=== PATIENT | male | born 1995 | race Caucasian/White ===

== ENCOUNTER 2018-07-08 11:13 | Inpatient (IN) ==
[2018-07-08] MEDS ORDERED: VECURONIUM BROMIDE 10 MG VIAL ONE (15:25)
[2018-07-08] MEDS ORDERED: ICU PROTOCOL FOR HYPERGLYCEMIA PRN (15:34)
[2018-07-08] MEDS ORDERED: IPRATROPIUM BROMIDE NEB SOLN 0.02% 2.5 ML VIAL INH PRN (15:34)
[2018-07-08] MEDS ORDERED: LEVALBUTEROL HCL 0.63 MG/3 ML NEB INH PRN (15:34)
[2018-07-08] MEDS ORDERED: NITROGLYCERIN/D5W 100 MCG/ML BTL ONE (15:53)
[2018-07-08] MEDS ORDERED: PROPOFOL IV EMULSION 10 MG/ML 100 ML VIAL IV ONE (15:56)
--- NOTE | 2018-07-08 15:57 | History & Physical Report ---
Date of Service July 08, 2018 Assessment & Plan (1) Cardiac arrest: I suspect that the patient had an acute hypoxic arrest which was then followed by a cardiac arrest. He received at least 15 minutes of CPR at the outside hospital. He had successful episcopal of spontaneous circulation a fter numerous doses of epinephrine, bicarbonate, fluids, and Narcan/flumazenil. There is low suspicion, despite the markedly elevated troponin, that the initial primary event was an acute coronary syndrome. I do not have the formal echocardiogram report however speaking with the elevator examiner and adjuster the LV wall motion was normal. Talking to his parents and girlfriend it seems as if the patient had some form of illness for 2-3 days prior to his cardiac arrest this morning. It is quite difficult to know how long the patient was hypoxic at home as his girlfriend found him cyanotic and unresponsive in the bed at 9am this morning. By history he has severe sleep apnea and thus he could have been hypoxic for a much longer period of time than estimated. The patient has evidence of bilateral pneumonia on CAT scan, was febrile upon presentation, and had a significant leukocytosis; thus an infectious process - in particular pneumonia - may have been the inciting pulmonary event which led to his initial hypoxia. There was some concern at the outside hospital that the patient suffered his arrest due to some form of overdose however his tox screen was negative except for marijuana. Additionally he received several doses of Narcan without any effect and also received flumazenil without any effect. At this time the patient is critically ill on the ventilator and will undergo hypothermia protocol as managed by Dr. Kohli. Appreciate Dr. Kholi's expertise as well as Dr. Crouch's cardiology consultation. We will defer management of the patient's multiorgan failure to critical care and cardiology. It is quite concerning that the patient's initial CT of the head shows possible loss of porter-white differentiation as well as multiple infarcts. Consider formal neurology consultation. Once the patient's hypothermia protocol resolves and he is rewarmed will need to reassess his neurological status. Present on Admission?: Yes (2) Acute respiratory failure with hypoxia and hypercarbia: Secondary to cardiac arrest. He has evidence of RV dysfunction on echo as well as bilateral pneumonia on CAT scan. It is possible that the pneumonia was there for several days as he was sick for several days according to his family. The other possibility is that he had an aspiration event in the midst of his arrest. Additionally, he has a very strong family history of DVT/PE and perhaps he had an acute VTE which could have caused or at least contributed to his arrest. He is being placed on antibiotics for pneumonia and also heparin empirically in the event that he had PEs. At some point he will need definitive imaging of the legs and/or chest to rule out VTE. Defer antibiotic selection, vent management, and hemodynamic management to critical care team. The patient's polycythemia would suggest that he has chronic hypoxia likely from undiagnosed and untreated sleep apnea which is likely severe. Lastly, there could be an element of pulmonary edema in light of the copious fluids he received at the outside hospital and his RV failure. Defer any diuretic to critical care and cardiology. Present on Admission?: Yes (3) NSTEMI (non-ST elevated myocardial infarction): It would be unusual although not impossible for 23-year-old to have an acute coronary syndrome. His presenting troponin was 8 at the outside hospital. It has already climbed to over 100. It this was indeed an acute coronary syndrome and in light of the markedly elevated troponin there likely would have been significant wall motion abnormalities on echo. By verbal report from the elevator examiner and adjuster this was not identified. Possibilities for the elevated troponin include demand ischemia although that would be very unusual for how high the troponin is, RV infarction from massive PE, some form of myocarditis, or perhaps elevation in the setting of CPR/chest compressions. Will await additional recommendations from cardiology whether patient should have cardiac catheterization at some point. We will also await formal echocardiogram report. The patient is on heparin infusion in the event he had massive PE or some form of acute coronary syndrome. Present on Admission?: Yes (4) Sepsis: The patient had fever and marked leukocytosis at time of admission. There is evidence of pneumonia on CT scan. Blood and urine cultures were sent at the outside hospital. Would recommend checking flu PCR swab as he had flu exposure at his workplace recently. Treat with Tamiflu if flu swab is positive. Defer antibiotic selection to critical care team. Will need to call outside hospital tomorrow for update on cultures. (5) Acute kidney failure: This is likely due to ATN in the setting of his cardiac arrest. Continue IV fluids and supportive care measures with serial basic metabolic panels. (6) Bilateral pneumonia: This is either community-acquired pneumonia or due to aspiration event. Defer antibiotic selection to critical care team. Need to call outside hospital for blood culture results in the morning. Continue ventilator support. (7) Tobacco use: (8) Polycythemia: This would argue that the patient has chronic hypoxia likely from severe untreated and undiagnosed sleep apnea. Present on Admission?: Yes (9) Shock liver: Transaminases are elevated consistent with shock liver in the setting of his cardiac arrest. He should have serial LFTs as well as INR to to check for development of coagulopathy. Present on Admission?: Yes (10) Morbid obesity with BMI of 45.0-49.9, adult: BMI 47.5 (11) Hyperkalemia: Secondary to acute kidney failure/ATN He may need a dose of Kayexalate and/or diuretic if potassium continues to rise. Serial basic metabolic panels. (12) Elevated lipase: Likely reactive and/or due to shock/cardiac arrest. Doubt acute pancreatitis. (13) UTI (urinary tract infection): possible. u/a at outside hospital with LE, bacteria, wbcs. antibiotics for pneumonia will cover urinary tract. contact outside hospital tomorrow for urine cx results. (14) DVT prophylaxis: The patient will be on heparin infusion. Total critical care time was approximately 60 minutes. Patient's family including his girlfriend were updated multiple times throughout the afternoon and evening. History of Present Illness Chief Complaint: s/p respiratory and cardiac arrest Primary Care Provider: NO PCP 23yo male with history of possible polysubstance abuse by history and morbid obesity who presented to [facility] via EMS with asystolic cardiac arrest. Per records and via verbal communication with the sending physician at [facility] the patient's girlfriend found him unresponsive and not breathing at home. EMS was summoned, and according to documentation, they found him WITH a pulse at his home. However, by the time of hospital arrival at [facility], he was in asystolic arrest. CPR was initiated at 924am according to records. Narcan and epinephrine were given followed by NaBicarbonate. At 0937am narcan was given again, and the monitor showed PEA. He was also given flumazanil to cover for the possibility of benzodiazepine overdose. Additional fluids and epinephrine were given for ongoing PEA on the monitor. At 942am a pulse was finally obtained and CPR was stopped. It appears he was intubated about 0948am. He received, in total, 4 liters of NS and 2 grams of rocephin IV due to WBC count of 40,000 on cbc. Initial EKG - inferior ST depressions; repeat EKG with improved ST changes inferiorly Labs at [facility]: WBC 41,000 Hb 18 Platelets 322 Creatinine 3 AG 20 AST 256 ALT 210 Troponin 8 Lipase 1439 CRP 0 initial pH 7.04, pCO3 63 u/a with LE, mod bacteria, 3+ blood, 2+ protein tox screen + THC lactic acid 6 After the patient's family arrived at [facility] additional history was obtained. Additional history was given by his mother, father, and his girlfriend with whom he lives. Patient's girlfriend stated that for at least 2 days if not 3 days he was complaining of feeling quite tired and simply not feeling well. Girlfriend states that the patient told her that several people at his workplace were sick with the flu. There was no known fever or chills over the last few days. His girlfriend and his parents had not noticed any cough or congestion. The patient was last seen awake and alert at approximately 11:30 PM last evening. His parents mention that when they saw him sometime yesterday he looked pale and simply unwell. The mother mentioned a remote possibility of him taking 1 of her [place] yesterday but she could not verify this. Lastly the girlfriend states that when she went into check on him at approximately 9 AM today he found him cyanotic in the lips and completely unresponsive to his name being called. She does think that he was still breathing when she first discovered him unresponsive. His breathing though was irregular. Patient's parents and his girlfriend also state that he snores each evening, it is very loud, and has been quite severe for some time. He has never had a sleep study. Lastly, the only other complaint that the patient has had of late is chronic right knee pain. The knee had not been swollen or red according to his girlfri end. Allergies Allergy/AdvReac Type Severity Reaction Status Date / Time Unable to Assess Allergy Verified 07/08/18 16:41 Past Med/Surg History Medical History Anxiety Chronic steroid use Depression Family history of reaction to anesthesia History of abscess of skin and subcutaneous tissue 2015 -this required multiple incision and drainage procedures at [facility]; location - groin Marijuana use Morbid obesity with BMI of 45.0-49.9, adult Snoring Tobacco use Surgical History History of arthroscopy History of incision and drainage Groin abscess, 2016 History of lumbar surgery Family History Mother History of MTHFR mutation Pulmonary embolism Deep vein thrombosis Father Hypertension Other Lupus anticoagulant disorder Social History Preferred Language: Syriac Communication Ability: Unable Beliefs That Will Affect Care: None marital status: Single Current Living Situation: Significant Other Current Living Situation Comment: Lives in [place] with significant other current occupational status: employed current occupation: Works as a camp specialist at a [employer] Other Information That Helps Us Care for You: No Feels Safe at Home: Yes Safety Concerns: Feels Safe At This Time Smoking Status: Current some day smoker Hx Alcohol Use: Yes Hx Substance Use: Yes Review of Systems Unobtainable due to endotracheal tube and Unobtainable due to reduced consciousness Physical Exam Vital Signs (Past 24 Hours): General: Intubated, paralyzed, sedated; morbidly obese Skin: Numerous tattoos, no signs of trauma, hyperpigmentation of the groin, erythema of the right lower abdominal wall but not warm or typical of cellulitis, ecchymoses of the plantar aspect of the right foot Eyes: Pupils are 2-3 mm bilateral; they were not reactive HEENT: ET tube and enteric tube are present; there are [id number] materials in the enteric tube Neck: No obvious masses or lymphadenopathy; due to body habitus unable to assess for JVD Heart: Regular rate rhythm S1-S2 no murmurs rubs or gallop Lungs: Decreased breath sounds both bases; the anterior chest is clear to auscultation bilaterally; no wheezes or rales Abdomen: Soft, obese, no hepatosplenomegaly, no masses, nondistended Extremities: Cool to touch, pulses 1+ bilaterally, no edema Neuro: Due to paralytics he is areflexic; no spontaneous movement seen presumably due to paralytics; no facial droop Vascular: There is a right sided subclavian central line in place; there is a right femoral central line in place; pulses of both feet are 1+ bilaterally; there is some mottling of the lower extremities Psych: Patient is intubated and sedated Results & Data Laboratory Results Laboratory Results - last 24 hr 07/08/18 07/08/18 07/08/18 15:53 15:55 16:00 WBC 27.32 H RBC 6.18 H Hgb 19.3 H Hct 57.4 H MCV 92.9 MCH 31.2 MCHC 33.6 RDW Std Deviation 47.6 H RDW Coeff of Daxa 14.1 Plt Count 221 MPV 10.2 Immature Gran % (Auto) 2.6 Neut % (Auto) 87.1 Lymph % (Auto) 5.6 Phillips % (Auto) 4.6 Eos % (Auto) 0.0 Baso % (Auto) 0.1 Immature Gran # (Auto) 0.70 H Neut # (Auto) 23.78 H Lymph # (Auto) 1.53 Phillips # (Auto) 1.27 H Eos # (Auto) 0.01 Baso # (Auto) 0.03 Absolute Nucleated RBC 0.08 H Nucleated RBC % (auto) 0.3 PT INR APTT PTT Ratio Sample Site L Radial POC pH 7.07 L* POC pCO2 97 H POC pO2 90 POC HCO3 27 H POC Total CO2 30 POC Base Excess -2.0 ABG pH ABG pCO2 ABG pO2 ABG HCO3 POC ABG O2 Sat 89.0 L ABG O2 Saturation ABG Base Excess Eris Test Pass Barometric Pressure Oxygen Given O2 Delivery Device Ventilator POC O2 Rate 16 POC FiO2 100 PEEP 8 Sodium Potassium Chloride Carbon Dioxide Anion Gap BUN Creatinine Est Cr Clr Drug Dosing Est GFR ( Amer) Est GFR (Non-Af Amer) BUN/Creatinine Ratio Glucose POC Glucose 74 Lactate Calcium Phosphorus Magnesium Total Bilirubin AST ALT Alkaline Phosphatase Total Creatine Kinase Troponin I Total Protein Albumin Globulin Albumin/Globulin Ratio Lipase TSH Nasal Screen MRSA (PCR) 07/08/18 07/08/18 07/08/18 16:00 16:00 16:00 WBC RBC Hgb Hct MCV MCH MCHC RDW Std Deviation RDW Coeff of Daxa Plt Count MPV Immature Gran % (Auto) Neut % (Auto) Lymph % (Auto) Phillips % (Auto) Eos % (Auto) Baso % (Auto) Immature Gran # (Auto) Neut # (Auto) Lymph # (Auto) Phillips # (Auto) Eos # (Auto) Baso # (Auto) Absolute Nucleated RBC Nucleated RBC % (auto) PT INR APTT PTT Ratio Sample Site POC pH POC pCO2 POC pO2 POC HCO3 POC Total CO2 POC Base Excess ABG pH 7.17 L* ABG pCO2 82 H ABG pO2 72 L ABG HCO3 29 H POC ABG O2 Sat ABG O2 Saturation 90.9 ABG Base Excess -2.9 Eris Test Pos Barometric Pressure 733.3 Oxygen Given 100% O2 Delivery Device POC O2 Rate POC FiO2 PEEP Sodium 142 Potassium 5.7 H Chloride 107 Carbon Dioxide 27 Anion Gap 8.0 BUN 21 H Creatinine 2.39 H Est Cr Clr Drug Dosing 80.7 Est GFR ( Amer) 42.4 Est GFR (Non-Af Amer) 36.6 BUN/Creatinine Ratio 8.6 L Glucose 175 H POC Glucose Lactate 2.6 H* Calcium 6.6 L Phosphorus 5.8 H Magnesium 1.9 Total Bilirubin 0.5 AST 842 H ALT 339 H Alkaline Phosphatase 41 L Total Creatine Kinase Troponin I 99.300 H* Total Protein 6.9 Albumin 3.1 L Globulin 3.8 Albumin/Globulin Ratio 0.8 L Lipase 642 H TSH 0.954 Nasal Screen MRSA (PCR) 07/08/18 07/08/18 07/08/18 16:53 16:53 17:28 WBC RBC Hgb Hct MCV MCH MCHC RDW Std Deviation RDW Coeff of Daxa Plt Count MPV Immature Gran % (Auto) Neut % (Auto) Lymph % (Auto) Phillips % (Auto) Eos % (Auto) Baso % (Auto) Immature Gran # (Auto) Neut # (Auto) Lymph # (Auto) Phillips # (Auto) Eos # (Auto) Baso # (Auto) Absolute Nucleated RBC Nucleated RBC % (auto) PT 11.9 INR 1.2 H APTT 21.8 PTT Ratio 0.8 Sample Site POC pH POC pCO2 POC pO2 POC HCO3 POC Total CO2 POC Base Excess ABG pH ABG pCO2 ABG pO2 ABG HCO3 POC ABG O2 Sat ABG O2 Saturation ABG Base Excess Eris Test Barometric Pressure Oxygen Given O2 Delivery Device POC O2 Rate POC FiO2 PEEP Sodium Potassium Chloride Carbon Dioxide Anion Gap BUN Creatinine Est Cr Clr Drug Dosing Est GFR ( Amer) Est GFR (Non-Af Amer) BUN/Creatinine Ratio Glucose POC Glucose Lactate Calcium Phosphorus Magnesium Total Bilirubin AST ALT Alkaline Phosphatase Total Creatine Kinase 94019 H Troponin I 111.000 H* Total Protein Albumin Globulin Albumin/Globulin Ratio Lipase TSH Nasal Screen MRSA (PCR) 07/08/18 07/08/18 07/08/18 17:33 17:46 18:20 WBC RBC Hgb Hct MCV MCH MCHC RDW Std Deviation RDW Coeff of Daxa Plt Count MPV Immature Gran % (Auto) Neut % (Auto) Lymph % (Auto) Phillips % (Auto) Eos % (Auto) Baso % (Auto) Immature Gran # (Auto) Neut # (Auto) Lymph # (Auto) Phillips # (Auto) Eos # (Auto) Baso # (Auto) Absolute Nucleated RBC Nucleated RBC % (auto) PT INR APTT PTT Ratio Sample Site Art Line POC pH 7.24 L POC pCO2 66 H POC pO2 72 L POC HCO3 28 H POC Total CO2 30 POC Base Excess 1.0 ABG pH ABG pCO2 ABG pO2 ABG HCO3 POC ABG O2 Sat 90.0 ABG O2 Saturation ABG Base Excess Eris Test NA Barometric Pressure Oxygen Given O2 Delivery Device Ventilator POC O2 Rate 24 POC FiO2 10 PEEP 8 Sodium Potassium Chloride Carbon Dioxide Anion Gap BUN Creatinine Est Cr Clr Drug Dosing Est GFR ( Amer) Est GFR (Non-Af Amer) BUN/Creatinine Ratio Glucose POC Glucose 125 H Lactate Calcium Phosphorus Magnesium Total Bilirubin AST ALT Alkaline Phosphatase Total Creatine Kinase Troponin I Total Protein Albumin Globulin Albumin/Globulin Ratio Lipase TSH Nasal Screen MRSA (PCR) Negative 07/08/18 20:00 WBC RBC Hgb Hct MCV MCH MCHC RDW Std Deviation RDW Coeff of Daxa Plt Count MPV Immature Gran % (Auto) Neut % (Auto) Lymph % (Auto) Phillips % (Auto) Eos % (Auto) Baso % (Auto) Immature Gran # (Auto) Neut # (Auto) Lymph # (Auto) Phillips # (Auto) Eos # (Auto) Baso # (Auto) Absolute Nucleated RBC Nucleated RBC % (auto) PT INR APTT PTT Ratio Sample Site POC pH POC pCO2 POC pO2 POC HCO3 POC Total CO2 POC Base Excess ABG pH ABG pCO2 ABG pO2 ABG HCO3 POC ABG O2 Sat ABG O2 Saturation ABG Base Excess Eris Test Barometric Pressure Oxygen Given O2 Delivery Device POC O2 Rate POC FiO2 PEEP Sodium Potassium Chloride Carbon Dioxide Anion Gap BUN Creatinine Est Cr Clr Drug Dosing Est GFR ( Amer) Est GFR (Non-Af Amer) BUN/Creatinine Ratio Glucose POC Glucose 70 Lactate Calcium Phosphorus Magnesium Total Bilirubin AST ALT Alkaline Phosphatase Total Creatine Kinase Troponin I Total Protein Albumin Globulin Albumin/Globulin Ratio Lipase TSH Nasal Screen MRSA (PCR) Diagnostic Findings CT chest: IMPRESSION: 1. The right lower lobe bronchus is occluded and there is complete collapse of the right lower lobe. There is also narrowing of the bronchus intermedius. This is indeterminate but could represent evidence for aspiration. A central obstructing mass is considered less likely given the patient's age. However, bronchoscopy recommended for further evaluation. 2. There is consolidation within the left lower lobe posteriorly with patchy airspace opacities within the left lower lobe and left upper lobe posteriorly. Therefore, this could represent a combination of atelectasis and pneumonia. 3. Satisfactory support line placement as described above. EKG: My reading - Sinus tachycardia, peaked T waves throughout, nonspecific ST segment depressions in the inferior leads, no ST segment elevation Code Status & VTE Plan Code Status level 1 full code VTE Prophylaxis Plan VTE Prophylaxis will be ordered: Yes Critical Care Time Critical Care Time: Yes Total Critical Care Time: 60 (1) Acute kidney failure Acute renal failure type: unspecified Qualified Code(s): N17.9 - Acute kidney failure, unspecified (2) Sepsis Sepsis type: sepsis due to unspecified organism Qualified Code(s): A41.9 - Sepsis, unspecified organism (3) Bilateral pneumonia Pneumonia type: due to unspecified organism Lung location: lower lobe of lung Qualified Code(s): J18.1 - Lobar pneumonia, unspecified organism (4) UTI (urinary tract infection) Urinary tract infection type: acute cystitis Hematuria presence: without hematuria Qualified Code(s): N30.00 - Acute cystitis without hematuria
[2018-07-08] MEDS ORDERED: PATIENT'S ALLERGY INFO NEEDS ENTERED SCH (16:00)
[2018-07-08 16:11] LABS: iSTAT Allen Test Pass; iSTAT Arterial Blood Gas HCO3 27 meg/L (19-24); iSTAT Arterial Blood Gas pCO2 97 mmHg (35-46); iSTAT Arterial Blood Gas pH 7.07 (7.35-7.45); iSTAT Carbon Dioxide 30 mEq/l (24-31); iSTAT FiO2 100 %; iSTAT Site L Radial
[2018-07-08] MEDS ORDERED: DEXTROSE 50% 50 ML SYRINGE IV ONE (16:16)
--- NOTE | 2018-07-08 16:17 | XRay Report ---
XR chest 1V portable HISTORY: central line, ett placement COMPARISON: None. FINDINGS: The nasogastric tube terminates below the diaphragm. The tip is not included on this study. Endotracheal tube terminates 6.5 cm from the ping. Right subclavian central venous catheter termin ates at the expected location of the SVC. There are low lung volumes with right basilar left intersti tial and vascular thickening suggestive of pulmonary edema. Small right pleural effusion is noted. Th e heart is enlarged. There is right paratracheal soft tissue thickening. IMPRESSION: 1. Moderate pulmonary edema, cardiomegaly, and a small right pleural effusion. 2. The endotracheal tube terminates 6.5 cm and the ping. This should be advanced by approximately 3 cm. 3. The right subclavian central venous catheter and nasogastric tube are likely in good position. 4. Abnormal right peritracheal soft tissue thickening. This could be due to the AP portal technique. Repeat chest x-ray once the patient is stabilized is recommended to exclude a paratracheal abnormalit y. 5. No pneumothorax. Electronically signed by: Nicolas Morgan M.D. 07/08/2018 4:16 PM
[2018-07-08 16:18] LABS: Hematocrit (blood only) 57.4 % (42-52); Hemoglobin 19.3 g/dL (14.0-18.0); Mean Corpuscular Volume 92.9 fL (80-100); Mean Platelet Volume 10.2 fL (7.4-10.4); Nucleated RBC # (auto) 0.08 K/uL (0-0); Nucleated RBC % (auto) 0.3 %; Platelet Count 221 K/uL (130-400); RDW Coefficient of Variation 14.1 % (11.5-14.5); RDW Standard Deviation 47.6 fL (36.4-46.3); Red Blood Count 6.18 M/uL (4.7-6.1); White Blood Count 27.32 K/uL (4.8-10.8)
[2018-07-08 16:19] LABS: HCO3 ABG 29 mmol/L (19-24); Oxygen Saturation ABG 90.9 % (90-95); PCO2 ABG 82 mmHg (35-46); PO2 ABG 72 mm/Hg (80-95)
[2018-07-08 16:29] LABS: pH ABG 7.17 (7.35-7.45)
[2018-07-08 16:30] LABS: Allen Test Pos (Pos)
[2018-07-08] MEDS ORDERED: FUROSEMIDE 10 MG/ML 10 ML VIAL IV ONE (16:33)
[2018-07-08] MEDS ORDERED: FUROSEMIDE 80 MG in SYRINGE 0 ML IV ONE (16:34)
[2018-07-08 16:35] LABS: Albumin Level 3.1 gm/dl (3.4-5.0); BUN Creatinine Ratio 8.6 (10-20); Calcium 6.6 mg/dl (8.5-10.1); Creatinine Clr Calc Pharmacy 80.7 ml/min; Est GFR (African American) 42.4; Est GFR (Non-African American) 36.6; Magnesium 1.9 mg/dl (1.8-2.4); Potassium 5.7 mmol/L (3.5-5.1)
[2018-07-08 16:38] LABS: Albumin Globulin Ratio 0.8 (0.9-2); Bilirubin,Total 0.5 mg/dl (0.2-1); Globulin 3.8 gm/dl (2.5-4.0); Phosphorus 5.8 mg/dl (2.5-4.9); Total Protein 6.9 gm/dl (6.4-8.2)
[2018-07-08 16:39] LABS: Mean Corpuscular Hgb Conc 33.6 g/dL (32-36)
[2018-07-08] MEDS ORDERED: GLUCOSE 40% GEL 15 GM TUBE PO PRN (16:45)
[2018-07-08] MEDS ORDERED: DEXTROSE 50% 50 ML SYRINGE IV PRN (16:45)
[2018-07-08] MEDS ORDERED: GLUCOSE 10 TABS/TUBE PO PRN (16:45)
[2018-07-08] MEDS ORDERED: GLUCAGON FOR INJ 1 MG VIAL IM PRN (16:45)
[2018-07-08] MEDS ORDERED: CARBOHYDRATES FOR HYPOGLYCEMIA PO PRN (16:45)
[2018-07-08 16:49] LABS: Basophils # (auto) 0.03 K/uL (0-0.2); Basophils % (auto) 0.1 %; Eosinophils # (auto) 0.01 K/uL (0-0.5); Immature Granulocytes % (auto) 2.6 %; Lymphocytes # (auto) 1.53 K/uL (1.2-3.4); Lymphocytes % (auto) 5.6 %; Monocytes # (auto) 1.27 K/uL (0.11-0.59); Monocytes % (auto) 4.6 %; Neutrophils # (auto) 23.78 K/uL (1.4-6.5); Neutrophils % (auto) 87.1 %
[2018-07-08] MEDS ORDERED: ACETAMINOPHEN 650 MG SUPP PR PRN (17:25)
[2018-07-08] MEDS ORDERED: Heparin IV Standard *NO* Bolus ONE (17:33)
[2018-07-08 17:38] LABS: INR 1.2 (0.9-1.1); Prothrombin Time 11.9 Seconds (9.0-12.0)
[2018-07-08] MEDS ORDERED: VANCOMYCIN CONSULT ACTIVE PRN (17:40)
[2018-07-08] MEDS ORDERED: PIPERACILL/TAZOBAC CONSULT ACTIVE PRN (17:44)
[2018-07-08 17:47] LABS: iSTAT Arterial Blood Gas HCO3 28 meg/L (19-24); iSTAT Arterial Blood Gas pCO2 66 mmHg (35-46); iSTAT Arterial Blood Gas pH 7.24 (7.35-7.45); iSTAT Carbon Dioxide 30 mEq/l (24-31); iSTAT FiO2 10 %; iSTAT Site Art Line
--- NOTE | 2018-07-08 17:54 | Cardiology Consultation ---
Date of Consultation July 08, 2018 Assessment & Plan (1) Cardiac arrest: Seems that the inciting event today was a respiratory arrest. Patient does appear to have suffered some myocardial ischemia likely in the process of his prolonged hypoxia, acidosis and extended resuscitation. He has markedly elevated cardiac biomarkers and some mildly reduced LV and RV function. I think this is more applications sales representative of his underlying process rather than the cause of his decompensation. I do not believe he suffered an acute coronary event. Despite a prolonged resuscitation and evidence of myocardial damage on blood testing, he never had evidence ST elevation on any EKG. Did have evidence of s ome mild ischemic changes. His echocardiogram suggests an element of left ventricular hypertrophy which seems unusual given his age and lack of cardiac comorbidities. However, the appearance is not consistent with hypertrophic cardiomyopathy. Did have evidence of pulmonary edema at the time of admission. This was likely due to mild LV dysfunction in market hypertension, possibly related to being intubated and not adequately sedated. He is subsequently diuresed quite a lot and his blood pressure is significantly improved. Nitroglycerin infusion has been stopped. This is likely due to improved sedation and cooling. At this point, I would simply recommend supportive measures. Maintenance of good oxygenation, reversal of acidosis and maintenance of normal attention will be most beneficial in cardiac recovery. I do not believe there is any urgent indication for coronary angiography. History of Present Illness Reason for Consultation: Cardiac arrest Requesting Physician: Seun Attending Physician: Benton Hughes History of Present Illness Patient is currently intubated and sedated. The history was obtained from the medical staff as well as a review of the medical records. Seems that the patient was discovered this morning by his girlfriend to be unresponsive and cyanotic. EMS was alerted and upon arrival the patient was felt to have a respiratory arrest. Initial reports suggest that he did have a palpable pulse but this was later lost in route to the hospital. CPR was initiated and was extended in nature. Patient eventually was intubated and after return of circulation transfer to [facility] for additional care. Supplemental history obtained from his parents suggested he did not feel well for a few days leading up to this event. He stated that several coworkers had the flu. He apparently is a very stoic person did not report any specific symptoms but has been more tired recently. He did not report any subjective fevers or chills. He was not known to have a productive cough. He is thought to have sleep apnea but reportedly had been formally tested and did not have this diagnosis in the past. However, his girlfriend notes that he does snore quite loudly at nighttime. According to his family he exercises regularly. He actually has lost weight over the years. He performs both a aerobic and weight lifting exercises. There appears to be some history of substance abuse, possibly steroid use. Patient's struck screen was positive for marijuana. He appears to have a history of a groin abscess but there does not appear to be any history of heart disease. At the time of his arrival to [facility] the patient was markedly hypertensive, tachycardic and hypoxic. Chest x-ray obtained on admission suggested pulmonary vascular congestion. The patient underwent diuresis, nitroglycerin infusion initiation of anesthetic with eventual prescription for paralysis as well. Cooling protocol was also initiated. Allergies Allergy/AdvReac Type Severity Reaction Status Date / Time Unable to Assess Allergy Verified 07/08/18 16:41 Patient History Medical History Anxiety Chronic steroid use Depression Family history of reaction to anesthesia Surgical History History of arthroscopy Family History Mother History of MTHFR mutation Other Lupus anticoagulant disorder Social History Preferred Language: Sinhala Communication Ability: Unable Beliefs That Will Affect Care: None Current Living Situation: Significant Other Other Information That Helps Us Care for You: No Feels Safe at Home: Yes Safety Concerns: Feels Safe At This Time Smoking Status: Current some day smoker Hx Alcohol Use: Yes Review of Systems Not obtainable as the patient is currently intubated and sedated Physical Exam Vital Signs (Past 24 Hours): Last Vital Signs Temp 38.9 C H 07/08/18 15:10 Pulse 122 H 07/08/18 16:20 Resp 24 07/08/18 15:55 BP 201/132 H 07/08/18 15:31 Pulse Ox 86 L 07/08/18 16:20 Physical Exam: Intubated and sedated HEENT: Sclerae are anicteric. Extraocular movements could not be assessed. Neuro: This exam could not be completed as the patient is currently intubated and sedated Neck: He has redundant neck tissue. No evidence of thyromegaly. Lungs: Lungs appear clear to auscultation. Cardiac: Heart demonstrates a regular rate and rhythm. Normal S1 and S2. No murmurs on examination. Pulses: The patient has palpable radial pulses bilaterally that are equal in intensity Extremities: There was no evidence of hypoperfusion. There is no cyanosis or clubbing. There is no edema. Skin: I did not appreciate any rashes on examination today. He has multiple tattoos Results & Data Laboratory Results Abnormal Lab Results 07/08/18 07/08/18 07/08/18 15:53 15:55 16:00 WBC 27.32 H RBC 6.18 H Hgb 19.3 H Hct 57.4 H MCV 92.9 MCH 31.2 MCHC 33.6 RDW Std Deviation 47.6 H RDW Coeff of Daxa 14.1 Plt Count 221 MPV 10.2 Immature Gran % (Auto) 2.6 Neut % (Auto) 87.1 Lymph % (Auto) 5.6 [place] % (Auto) 4.6 Eos % (Auto) 0.0 Baso % (Auto) 0.1 Immature Gran # (Auto) 0.70 H Neut # (Auto) 23.78 H Lymph # (Auto) 1.53 [place] # (Auto) 1.27 H Eos # (Auto) 0.01 Baso # (Auto) 0.03 Absolute Nucleated RBC 0.08 H Nucleated RBC % (auto) 0.3 PT INR Sample Site L Radial POC pH 7.07 L* POC pCO2 97 H POC pO2 90 POC HCO3 27 H POC Total CO2 30 POC Base Excess -2.0 ABG pH ABG pCO2 ABG pO2 ABG HCO3 POC ABG O2 Sat 89.0 L ABG O2 Saturation ABG Base Excess Eris Test Pass Barometric Pressure Oxygen Given O2 Delivery Device Ventilator POC O2 Rate 16 POC FiO2 100 PEEP 8 Sodium Potassium Chloride Carbon Dioxide Anion Gap BUN Creatinine Est Cr Clr Drug Dosing Est GFR ( Amer) Est GFR (Non-Af Amer) BUN/Creatinine Ratio Glucose POC Glucose 74 Calcium Phosphorus Magnesium Total Bilirubin AST ALT Alkaline Phosphatase Total Protein Albumin Globulin Albumin/Globulin Ratio Lipase TSH 07/08/18 07/08/18 07/08/18 16:00 16:00 16:53 WBC RBC Hgb Hct MCV MCH MCHC RDW Std Deviation RDW Coeff of Daxa Plt Count MPV Immature Gran % (Auto) Neut % (Auto) Lymph % (Auto) [place] % (Auto) Eos % (Auto) Baso % (Auto) Immature Gran # (Auto) Neut # (Auto) Lymph # (Auto) [place] # (Auto) Eos # (Auto) Baso # (Auto) Absolute Nucleated RBC Nucleated RBC % (auto) PT 11.9 INR 1.2 H Sample Site POC pH POC pCO2 POC pO2 POC HCO3 POC Total CO2 POC Base Excess ABG pH 7.17 L* ABG pCO2 82 H ABG pO2 72 L ABG HCO3 29 H POC ABG O2 Sat ABG O2 Saturation 90.9 ABG Base Excess -2.9 Eris Test Pos Barometric Pressure 733.3 Oxygen Given 100% O2 Delivery Device POC O2 Rate POC FiO2 PEEP Sodium 142 Potassium 5.7 H Chloride 107 Carbon Dioxide 27 Anion Gap 8.0 BUN 21 H Creatinine 2.39 H Est Cr Clr Drug Dosing 80.7 Est GFR ( Amer) 42.4 Est GFR (Non-Af Amer) 36.6 BUN/Creatinine Ratio 8.6 L Glucose 175 H POC Glucose Calcium 6.6 L Phosphorus 5.8 H Magnesium 1.9 Total Bilirubin 0.5 AST 842 H ALT 339 H Alkaline Phosphatase 41 L Total Protein 6.9 Albumin 3.1 L Globulin 3.8 Albumin/Globulin Ratio 0.8 L Lipase 642 H TSH 0.954 07/08/18 17:33 WBC RBC Hgb Hct MCV MCH MCHC RDW Std Deviation RDW Coeff of Daxa Plt Count MPV Immature Gran % (Auto) Neut % (Auto) Lymph % (Auto) [place] % (Auto) Eos % (Auto) Baso % (Auto) Immature Gran # (Auto) Neut # (Auto) Lymph # (Auto) [place] # (Auto) Eos # (Auto) Baso # (Auto) Absolute Nucleated RBC Nucleated RBC % (auto) PT INR Sample Site Art Line POC pH 7.24 L POC pCO2 66 H POC pO2 72 L POC HCO3 28 H POC Total CO2 30 POC Base Excess 1.0 ABG pH ABG pCO2 ABG pO2 ABG HCO3 POC ABG O2 Sat 90.0 ABG O2 Saturation ABG Base Excess Eris Test NA Barometric Pressure Oxygen Given O2 Delivery Device Ventilator POC O2 Rate 24 POC FiO2 10 PEEP 8 Sodium Potassium Chloride Carbon Dioxide Anion Gap BUN Creatinine Est Cr Clr Drug Dosing Est GFR ( Amer) Est GFR (Non-Af Amer) BUN/Creatinine Ratio Glucose POC Glucose Calcium Phosphorus Magnesium Total Bilirubin AST ALT Alkaline Phosphatase Total Protein Albumin Globulin Albumin/Globulin Ratio Lipase TSH Diagnostic Findings Chest x-ray obtained on admission revealed pulmonary edema. I reviewed his records from [facility] including the laboratory results and report of his x-ray. I reviewed the source images of his EKGs. ECG Additional Comments: Sinus tachycardia with nonspecific ST and T-wave changes
--- NOTE | 2018-07-08 17:57 | Critical Care Consultation ---
Date of Consultation July 08, 2018 Assessment & Plan (1) Cardiac arrest: Impression: 1. Cardiac arrest, likely related to sleep breathing disorder, the patient with significant obesity hypoventilation syndrome and obstructive sleep apnea. 2. Cardiac arrest, asystole, 20 minutes code, with ROSC, now in sinus tachycardia. 3. The presence of tachycardia, hypertension and high fever is concerning for serotonin syndrome, the patient is only abusing anabolic steroids, urine tox was positive for THC. 4. Likely chronic kidney disease with acute kidney insufficiency. The BUN to creatinine ratio does not represent acute renal failure only. 5. Non-ST elevation NH, which could be post code, we will trend troponin. 6. Bedside echo was done by me which showed what appeared to be Roth sign, cannot rule out the possibility of PE, he does have strong family history with his mother with lupus anticoagulant and multiple venous thromboembolic events. 7. Morbid obesity with obstructive sleep apnea untreated. 8. The possibility of infectious process is less likely however cannot be ruled out. 9. Transaminitis secondary to shock liver. 10. Elevated lipase due to ischemic pancreatitis post code. Plan: 1. Adjust the ventilator with pressure control mode and increase IP to 24 and rate to 26 and allow the patient to correct his pH above than 7.25. 2. Ventilator associated pneumonia bundle. 3. Broad spectrum antibiotics to start with Vanco and Zosyn with respect to his kidney function. Appreciate pharmacy assistance and dose adjustment. 4. Start TTM process. 5. Start the patient on nitroglycerin drip for blood pressure control and pulmonary edema. 6. Propofol and fentanyl for sedation. 7. Nimbex for shivering in a drip form. 8. Trending CPK and troponin. Most recent troponin jumped up from 8-99, less likely to be related to code, I am concerned about congenital abnormality, the patient is too young to account for ruptured plaque. 9. Appreciate Dr. Aguila input in that regard. 10. Stat echo. 11. Head CT and a chest CT without contrast both stat. 12. BIS monitor. 13. Start heparin drip empirically, given the patient being on antibiotic steroids and strong family history of venous thromboembolic event. 14. Icy cool line, central line, A-line all placed dictated separately. 15. GI prophylaxis, urine output monitoring, skin care, DVT prophylaxis, old core measures of the ICU has been met. 16. Cultures are pending. 17. Labs every 4 hours. 18. Long Discussion Took Place with the mother and the family, they are in agreement with the plan, although they ask about transferring him to tertiary care center, he is not in a position where he can be transferred safely. 19. The patient is not oliguric, given a dose of 80 mg of Lasix due to pulmonary edema, he was able to put out over 1.5 L of urine. 20. Prognosis is guarded. Discussed in details with cardiology, nursing staff and Dr. Hughes, appreciate all. Thank you, critical care time spent with the patient excluding all procedures was 60 minutes. History of Present Illness Reason for Consultation: Cardiac arrest Requesting Physician: Attending Physician: Benton Hughes History of Present Illness Dear Dr. Hughes: Thank you for the kind referral Mr. Gamez to critical care service. This is 23-year-old gentleman with history of morbid obesity, anabolic steroids use, possible narcotic use although not confirmed, was with his girlfriend at home when he went to bed at 11:00 last night and when she tried to wake him up at 9:00 in the morning he was unable to wake up and he had frothy secretions in his mouth. She called 911 and when they arrived the patient was pulseless. CPR was started for 20 minutes according to the records and the patient was intubated and transferred to the ER at [facility]. The patient transferred to our institution for further management. Apparently, according to [facility] they mentioned that the patient was moving after the intubation although when he arrived to us his movement was none voluntary and he was just dyssynchronous with the ventilator. The patient could not give any review of system obviously, according to the family, he has not been feeling sick except with the flulike symptoms. He has not seen a physician, and on arrival he was found to be in [place] likely with CKD, leukocytosis 41,000 possibly post code, respiratory acidosis, and his reflexes were very difficult to assess on arrival. He did have central cyanosis when he arrived. Due to the event, the patient was started on TTM, had a central line placed and a line, initial blood pressure was 240 systolic, his heart rate was 120 and his temperature was 102. Although infectious process is a possibility, serotonin syndrome cannot be excluded. Family are not aware of any use of prescription drugs or illicit drugs other than antibiotic steroids that he buy them [id number]. Allergies Allergy/AdvReac Type Severity Reaction Status Date / Time Unable to Assess Allergy Verified 07/08/18 16:41 Patient History Medical History Anxiety Chronic steroid use Depression Family history of reaction to anesthesia Surgical History History of arthroscopy Family History Mother History of MTHFR mutation Other Lupus anticoagulant disorder Social History Preferred Language: Kazakh Communication Ability: Unable Beliefs That Will Affect Care: None Current Living Situation: Significant Other Other Information That Helps Us Care for You: No Feels Safe at Home: Yes Safety Concerns: Feels Safe At This Time Smoking Status: Current some day smoker Hx Alcohol Use: Yes Review of Systems Review of system is not obtainable. Physical Exam Vital Signs (Past 24 Hours): Last Vital Signs Temp 38.9 C H 07/08/18 15:10 Pulse 122 H 07/08/18 16:20 Resp 24 07/08/18 15:55 BP 201/132 H 07/08/18 15:31 Pulse Ox 86 L 07/08/18 16:20 Physical Exam: Morbidly obese gentleman, vital signs are showing severe hypertension 240/140, heart rate of 121 sinus rhythm, fever up to 102, upper torso cyanosis, only in supine position, dyssynchronous with the ventilator, does not respond to tactile or verbal, pupils are reactive, poor cough reflex, crackles bilaterally, distant breath sounds, S1-S2 tachycardic, abdomen is obese but benign, edema in the periphery, neurologically he is unresponsive to tactile or verbal, not moving any of his extremities, coughing over the ventilator only. Results & Data Laboratory Results Labs were consistent with leukocytosis, lactic acidosis, acute kidney insufficiency on chronic kidney disease, respiratory acidosis, troponin of 8, unknown baseline of his BUN and creatinine. He does have also hemoconcentration. Diagnostic Findings Chest x-ray which I reviewed myself revealed atelectasis of the right base, pulmonary edema, right pleural effusion, ET tube was 6 cm above the ping, a right subclavian catheter.
[2018-07-08] MEDS ORDERED: VANCOMYCIN HCL 2,750 MG in SODIUM CHLORIDE 0.9% 500 ML IV ONE (18:00)
[2018-07-08] MEDS ORDERED: PIPERACILLIN/TAZOBACTAM 4.5 GM in DEXTROSE 5% 100 ML IV ONE (18:00)
[2018-07-08 18:07] LABS: Troponin I 99.3 ng/ml (0-0.045)
--- NOTE | 2018-07-08 18:20 | Procedure Note ---
Procedure Note Date of Service July 08, 2018 Note The patient underwent 3 procedures emergently, done without the consent, as the patient was in critical condition and was already intubated. Procedure #1 placement of a central line as the patient did not have any IV access. The patient was in supine position, right IJ was accessed under strict sterile field using chlorhexidine to prep the skin, injected with 5 mL 4% lidocaine, using Seldinger technique, no scalpel was used, the line was placed to 20 cm, and all ports were flushed with saline, secured with 2 sutures and covered with surgical dressing. Chest x-ray showed the tip of the catheter at the SVC, no pneumothorax. Procedure #2 is a line placement in the right radial area, under strict sterile field, using chlorhexidine to prep the skin, one attempt, using Seldinger technique, the line was placed, a waves were noted on the monitor, secured with one suture, covered with surgical dressing. Procedure #3 right femoral icy cool line was placed under ultrasound guidance, under strict sterile field, using Seldinger technique as well, the skin was prepped with chlorhexidine, and injected with 5 mL of 1% lidocaine, using Seldinger technique, no scalpel and only a dilator was used, the line was placed to 38 cm, and all ports were flushed with saline, secured with 2 sutures, and covered with surgical dressing. No immediate complication. The nurses noted that there is elevated pressure from the line, these are not power lines and the pressure is a venous pressure and may use a line for cooling. Thank you
[2018-07-08] MEDS: CISATRACURIUM BESYLATE 40 MG in 0.9 % SODIUM CHLORIDE 80 ML IV SCH ×2 (18:31→22:20)
--- NOTE | 2018-07-08 18:35 | CT Scan Report ---
CT chest wo con CT DOSE: HISTORY: lung collapse TECHNIQUE: Multiaxial CT images of the chest were performed without contrast. A dose lowering techni que was utilized adhering to the principles of ALARA. COMPARISON: None. FINDINGS: The endotracheal tube terminates 4.5 cm and the ping. The nasogastric tube tip is not inc luded on this study but terminates below the level the diaphragm. A right subclavian central venous c atheter terminates at the distal SVC. No pneumothorax. No pleural effusions. There is complete collap se of the right lower lobe with an opacified right mainstem bronchus. There is also consolidation wit hin the right lung apex. There is also dense consolidation within the left lower lobe posteriorly. Th is could represent a combination of atelectasis and pneumonia. There are few additional nodular airsp ronan opacities within the left lower lobe and left upper lobe posteriorly. The left airways are patent . There is also narrowing of the bronchus intermedius. No fractures within the visualized osseous str uctures. Normal caliber thoracic aorta. The heart is mildly enlarged. No pericardial effusion. No med iastinal hematoma. No mediastinal lymphadenopathy. The visualized liver and spleen are unremarkable. IMPRESSION: 1. The right lower lobe bronchus is occluded and there is complete collapse of the right lower lobe. There is also narrowing of the bronchus intermedius. This is indeterminate but could represent eviden ce for aspiration. A central obstructing mass is considered less likely given the patient's age. Cesar danica, bronchoscopy recommended for further evaluation. 2. There is consolidation within the left lower lobe posteriorly with patchy airspace opacities withi n the left lower lobe and left upper lobe posteriorly. Therefore, this could represent a combination of atelectasis and pneumonia. 3. Satisfactory support line placement as described above. Electronically signed by: Nicolas Morgan M.D. 07/08/2018 6:34 PM
--- NOTE | 2018-07-08 18:40 | CT Scan Report ---
HEAD CT NONCONTRAST CT DOSE: 2832.45 mGy.cm HISTORY: Unresponsive. cardiac arrest TECHNIQUE: Multiaxial CT images of the head were performed without the use of intravenous contrast. A utomated exposure control was utilized for this study. A dose lowering technique was utilized adheri ng to the principles of ALARA. Comparison: None. Findings: Mild motion artifact. Small fluid levels throughout the paranasal sinuses. A right-sided na sogastric tube is partially visualized. The mastoid air cells are clear. The calvarium and skull base are intact. There is focal hypodensity within the left parietal lobe posteriorly measuring approxima tely 4.3 x 2.5 cm. This is consistent with an acute infarct. There is partial effacement of the basil ar cisterns with suggestion of partial loss of the porter-white junction. Therefore, these findings sug gest the possibility of mild cerebral edema due to a hypoxic-anoxic brain injury. There is also a 1.2 cm hypodense focus within the left basal ganglia suggesting a small infarct. Impression: 1. Focal hypodensities involving the left parietal lobe posteriorly and within the left basal ganglia consistent with acute infarcts. 2. There is partial effacement of the basilar cisterns with suggestion of partial loss of the porter-wh ite junction. Therefore, these findings suggest the possibility of mild cerebral edema due to a hypox ic-anoxic brain injury. Electronically signed by: Nicolas Morgan M.D. 07/08/2018 6:39 PM
[2018-07-08] MEDS: PROPOFOL 1,000 MG/100 ML VIAL IV SCH ×2 (18:42→22:13)
[2018-07-08] MEDS: fentaNYL DRIP 1,250 MCG/250 ML BAG IV SCH ×2 (18:44→22:19)
[2018-07-08] MEDS ORDERED: PERFLUTREN LIPID MICROSPHERE (DEFINITY) IV ONE (19:02)
[2018-07-08] MEDS ORDERED: SODIUM CHLORIDE 0.9% 1000ML 1,000 ML IV SCH (19:15)
[2018-07-08 19:20] LABS: Partial Thromboplastin Ratio 0.8; Partial Thromboplastin Time 21.8 Seconds (21.0-31.0)
[2018-07-08] MEDS: HEPARIN SODIUM/DEXTROSE 25,000 UNITS/500 ML BAG IV SCH (20:13)
[2018-07-08] MEDS: PANTOprazole 40 MG in SYRINGE 0 ML IV SCH (20:25)
[2018-07-08] MEDS ORDERED: NOREPINEPHRINE BIT INJ 8 MG in DEXTROSE 5% 500 ML IV SCH (20:30)
[2018-07-08 21:03] LABS: Influenza A virus by PCR Neg for Influ A (Neg); Influenza B virus by PCR Neg for Influ B (Neg)
--- NOTE | 2018-07-08 21:23 | Pharmacy Report ---
Pharmacy Abx Initial Consult - Date of Service July 08, 2018 - Pharmacy Dosing Scope Date of Consult: 07/08/18 Consultation requested by: Dr. Kohli Pharmacy is consulted to initiate vancomycin and Zosyn IV dosing therapy, order appropriate labs and adjust drug dose/frequency. - Subjective The patient is a 23 year old M admitted on 07/08/18 15:01 s/p cardiac arrest. - Objective Height: 6 ft 3 in Weight: 172.365 kg Vital Signs (Past 12hrs): Vital Signs Temp Temp Pulse Resp BP BP Pulse Ox 07/08/18 21:00 35.0 C L 66 26 H 138/80 100 07/08/18 20:32 77 105/35 L 100 07/08/18 20:00 36.0 C L 82 26 H 93/62 L 100 07/08/18 19:48 82 112/81 100 07/08/18 19:38 85 108/78 100 07/08/18 19:30 85 100 07/08/18 19:27 86 101/77 100 07/08/18 19:00 91 H 96 07/08/18 18:40 101 H 94 07/08/18 18:30 37.6 C H 100 H 26 H 85/53 L 93 07/08/18 18:20 105 H 87 L 07/08/18 17:40 108 H 88 L 07/08/18 17:35 108 H 29 H 90 07/08/18 17:30 37.8 C H 107 H 29 H 117/69 89 L 07/08/18 17:20 106 H 89 L 07/08/18 17:10 109 H 90 07/08/18 17:00 110 H 90 07/08/18 16:50 112 H 90 07/08/18 16:40 110 H 89 L 07/08/18 16:30 116 H 88 L 07/08/18 16:20 122 H 86 L 07/08/18 16:10 124 H 88 L 07/08/18 16:00 124 H 93 07/08/18 15:55 123 H 24 93 07/08/18 15:50 117 H 83 L 07/08/18 15:46 115 H 94 07/08/18 15:40 115 H 93 07/08/18 15:31 116 H 201/132 H 91 07/08/18 15:30 117 H 91 07/08/18 15:20 93 07/08/18 15:15 112 H 115/95 88 L 07/08/18 15:11 100 H 39 H 89 L 07/08/18 15:10 38.9 C H 95 H 36 H 168/148 H 85 L 07/08/18 15:05 120 H 41 H 93 Pulse Ox 07/08/18 21:00 07/08/18 20:32 07/08/18 20:00 100 07/08/18 19:48 07/08/18 19:38 07/08/18 19:30 07/08/18 19:27 07/08/18 19:00 07/08/18 18:40 07/08/18 18:30 07/08/18 18:20 07/08/18 17:40 07/08/18 17:35 07/08/18 17:30 07/08/18 17:20 07/08/18 17:10 07/08/18 17:00 07/08/18 16:50 07/08/18 16:40 07/08/18 16:30 07/08/18 16:20 07/08/18 16:10 07/08/18 16:00 07/08/18 15:55 07/08/18 15:50 07/08/18 15:46 07/08/18 15:40 07/08/18 15:31 07/08/18 15:30 07/08/18 15:20 07/08/18 15:15 07/08/18 15:11 07/08/18 15:10 07/08/18 15:05 Lab Results (24hrs): Laboratory Tests (24 Hours) 07/08/18 07/08/18 07/08/18 17:28 16:00 16:00 WBC 27.32 H Neut # (Auto) 23.78 H Creatinine 2.39 H Est Cr Clr Drug Dosing 80.7 Total Creatine Kinase 42772 H Micro Results: 07/08/18 19:24 Gram Stain - Pending Sputum,Vent Suction Sputum Culture - Pending 07/08/18 18:43 Blood Culture - Pending Blood 07/08/18 18:43 Blood Culture - Pending Blood - Risk Factors for Resistance no known risk factors - Assessment & Plan Assessment 23 year old M admitted s/p cardiac arrest. Currently intubated and code artic Plan vancomycin/Zosyn for treatment of pulmonary infection possibly Vancomycin IV * Estimated PK Parameters: Vd 0.6 L/kg, Ryan 0.07 hr-1, t1/2 9.9 hr * Loading dose: 2750 mg (15.9 mg/kg) * Maintenance dose: 2500 mg IV (13.5 mg/kg) every 12 hours - currently in [facility] so did not order trough as patient may require more frequent dosing. * Goal trough level for pulmonary : 15 to 20 mcg/mL * A less than traditional dose and extended dosing interval has been selected due to likelihood of drug accumulation in obese patient. Piperacillin/tazobactam * 4.5 g bolus administered over 30 minutes, then 4.5 g IV extended infusion every 8 hours for CrCl greater than 20 mL/min * Aggressive dosing selected due to critically ill status and BMI 35 or more. Pharmacy will continue to follow and will adjust dose/frequency as necessary. Thank you.
[2018-07-08] MEDS ORDERED: HEPARIN SOD 5,000 UNIT/0.5 ML VIAL SQ SCH (22:00)
[2018-07-08 22:16] LABS: Hematocrit (blood only) 54.1 % (42-52); Hemoglobin 18.4 g/dL (14.0-18.0); Mean Corpuscular Volume 91.1 fL (80-100); Mean Platelet Volume 10.4 fL (7.4-10.4); Platelet Count 219 K/uL (130-400); RDW Coefficient of Variation 14.1 % (11.5-14.5); RDW Standard Deviation 47.3 fL (36.4-46.3); Red Blood Count 5.94 M/uL (4.7-6.1); White Blood Count 23.54 K/uL (4.8-10.8)
[2018-07-08] MEDS: CHLORHEXIDINE GLUCONATE 0.12% 480 ML MT SCH (22:33)
[2018-07-08 22:38] LABS: BUN Creatinine Ratio 10.9 (10-20); Calcium 6.5 mg/dl (8.5-10.1); Creatinine Clr Calc Pharmacy 90.9 ml/min; Est GFR (Non-African American) 42.3; Magnesium 1.5 mg/dl (1.8-2.4); Phosphorus 3.7 mg/dl (2.5-4.9)
[2018-07-08] MEDS ORDERED: AMIODARONE IV BOLUS / DRIP IV STA (22:42)
[2018-07-08] MEDS ORDERED: AMIODARONE / D5W 150 MG/100 ML BAG IV STA (22:42)
[2018-07-08 22:43] LABS: Immature Granulocytes # (auto) 0.21 K/uL (0.00-0.02); Immature Granulocytes % (auto) 0.9 %; Lymphocytes # (auto) 1.92 K/uL (1.2-3.4); Lymphocytes % (auto) 8.2 %; Monocytes % (auto) 4.2 %; Neutrophils # (auto) 20.41 K/uL (1.4-6.5); Neutrophils % (auto) 86.7 %
[2018-07-08] MEDS ORDERED: AMIODARONE 360MG / 200ML D5W IV ONE (22:44)
[2018-07-08] MEDS ORDERED: POTASSIUM CHLORIDE / WTR 10 MEQ/100 ML PLCT IV ONE (22:44)
[2018-07-08] MEDS ORDERED: CALCIUM GLUCONATE 10% 1,000 MG in SODIUM CHLORIDE 0.9% 50 ML IV STA (22:44)
[2018-07-08] MEDS ORDERED: MAGNESIUM SULFATE / D5W 1 GM/100 ML BAG IV ONE (22:44)
[2018-07-08] MEDS ORDERED: AMIODARONE / D5W 360 MG/200 ML BAG IV SCH (22:45)
--- NOTE | 2018-07-08 22:46 | Critical Care Progress Note ---
Date of Service July 08, 2018 Subjective 2230: Patient began with several, frequent runs of ventricular tachycardia. I independently evaluate the patient at bedside. Labs were recently completed. Previously, no concerns for significant electrolyte abnormalities have been appreciated. Given the patient's persistence of symptoms and concerning recent cardiac arrest, I did elect to treat the patient aggressively with amiodarone in the form of bolus followed by drip. Electrolytes are pending for reevaluation. Will certainly address any issues which may further contribute. I have personally spent 30 minutes of critical care time in the direct management of this patient. This is a life/limb threatening event. This includes time spent evaluating patient, direct bedside care, chart review, placing orders, interpretation of diagnostic studies, discussion with consultants, patient, and family members, as well as other required patient management activities. This time is exclusive of all separately billable procedures, and teaching time and separate from and in addition to any other critical care service time. Physical Exam Vital Signs (Past 24 Hours): Last Vital Signs Temp 34.4 C L 07/08/18 22:00 Pulse 73 07/08/18 22:00 Resp 26 H 07/08/18 22:00 BP 156/101 H 07/08/18 22:00 Pulse Ox 100 07/08/18 22:00
[2018-07-08 22:56] LABS: iSTAT Allen Test Pass; iSTAT Arterial Blood Gas HCO3 25 meg/L (19-24); iSTAT Arterial Blood Gas pCO2 39 mmHg (35-46); iSTAT Arterial Blood Gas pH 7.39 (7.35-7.45); iSTAT Carbon Dioxide 26 mEq/l (24-31); iSTAT FiO2 100 %; iSTAT Site Art Line
[2018-07-08 23:17] LABS: Potassium 3.9 mmol/L (3.5-5.1); Troponin I 72.2 ng/ml (0-0.045)
[2018-07-08] MEDS: PIPERACILLIN/TAZOBACTAM 4.5 GM in DEXTROSE 5% 100 ML IV SCH (23:42)
[2018-07-09] MEDS: D5W AND NSS 1,000 ML IV SCH ×4 (00:47→18:17)
[2018-07-09] MEDS: PROPOFOL 1,000 MG/100 ML VIAL IV SCH ×10 (01:43→20:02)
[2018-07-09 02:18] LABS: Basophils # (auto) 0.01 K/uL (0-0.2); Hematocrit (blood only) 53.4 % (42-52); Hemoglobin 18.5 g/dL (14.0-18.0); Immature Granulocytes # (auto) 0.12 K/uL (0.00-0.02); Immature Granulocytes % (auto) 0.5 %; Lymphocytes % (auto) 8.1 %; Mean Corpuscular Hgb Conc 34.6 g/dL (32-36); Mean Corpuscular Volume 90.8 fL (80-100); Neutrophils # (auto) 19.44 K/uL (1.4-6.5); Neutrophils % (auto) 87.4 %; Platelet Count 201 K/uL (130-400); RDW Coefficient of Variation 14.1 % (11.5-14.5); RDW Standard Deviation 46.9 fL (36.4-46.3); Red Blood Count 5.88 M/uL (4.7-6.1); White Blood Count 22.27 K/uL (4.8-10.8)
[2018-07-09 02:36] LABS: BUN Creatinine Ratio 13.2 (10-20); Calcium 6.9 mg/dl (8.5-10.1); Creatinine Clr Calc Pharmacy 112.7 ml/min; Est GFR (African American) 63.5; Est GFR (Non-African American) 54.8; Magnesium 1.9 mg/dl (1.8-2.4); Phosphorus 3.6 mg/dl (2.5-4.9); Potassium 4.1 mmol/L (3.5-5.1)
[2018-07-09 02:42] LABS: Partial Thromboplastin Ratio 1.9
[2018-07-09 02:54] LABS: Partial Thromboplastin Time 50.4 Seconds (21.0-31.0)
[2018-07-09] MEDS: CISATRACURIUM BESYLATE 40 MG in 0.9 % SODIUM CHLORIDE 80 ML IV SCH ×2 (03:14→07:31)
[2018-07-09 03:58] LABS: iSTAT Arterial Blood Gas HCO3 23 meg/L (19-24); iSTAT Arterial Blood Gas pCO2 33 mmHg (35-46); iSTAT Arterial Blood Gas pH 7.43 (7.35-7.45); iSTAT Carbon Dioxide 24 mEq/l (24-31); iSTAT FiO2 100 %; iSTAT Site Art Line
[2018-07-09] MEDS: AMIODARONE / D5W 360 MG/200 ML BAG IV SCH ×2 (05:08→17:20)
[2018-07-09] MEDS ORDERED: VANCOMYCIN HCL 2,500 MG in SODIUM CHLORIDE 0.9% 500 ML IV SCH (06:00)
[2018-07-09 06:22] LABS: Basophils # (auto) 0.01 K/uL (0-0.2); Hematocrit (blood only) 52.1 % (42-52); Hemoglobin 18.1 g/dL (14.0-18.0); Immature Granulocytes # (auto) 0.11 K/uL (0.00-0.02); Immature Granulocytes % (auto) 0.5 %; Lymphocytes # (auto) 2.24 K/uL (1.2-3.4); Lymphocytes % (auto) 10.8 %; Mean Corpuscular Hgb Conc 34.7 g/dL (32-36); Mean Corpuscular Volume 90.5 fL (80-100); Mean Platelet Volume 10.4 fL (7.4-10.4); Monocytes # (auto) 0.79 K/uL (0.11-0.59); Monocytes % (auto) 3.8 %; Neutrophils % (auto) 84.9 %; Platelet Count 196 K/uL (130-400); RDW Coefficient of Variation 14.2 % (11.5-14.5); RDW Standard Deviation 47.1 fL (36.4-46.3); Red Blood Count 5.76 M/uL (4.7-6.1); White Blood Count 20.65 K/uL (4.8-10.8)
[2018-07-09] MEDS: fentaNYL DRIP 1,250 MCG/250 ML BAG IV SCH ×2 (06:35→13:11)
[2018-07-09 06:38] LABS: INR 1.2 (0.9-1.1); Prothrombin Time 11.9 Seconds (9.0-12.0)
[2018-07-09 06:55] LABS: Bilirubin Direct 0.3 mg/dl (0-0.2)
[2018-07-09 06:56] LABS: Albumin Level 2.6 gm/dl (3.4-5.0); BUN Creatinine Ratio 13.6 (10-20); Calcium 6.7 mg/dl (8.5-10.1); Creatinine Clr Calc Pharmacy 120.5 ml/min; Est GFR (African American) 68.9; Est GFR (Non-African American) 59.4; Magnesium 1.8 mg/dl (1.8-2.4); Potassium 3.7 mmol/L (3.5-5.1)
--- NOTE | 2018-07-09 07:04 | Intensivist Progress Note ---
Date of Service July 09, 2018 Physical Exam Vital Signs (Past 24 Hours): Last Vital Signs Temp 33.2 C L 07/09/18 06:00 Pulse 59 L 07/09/18 06:00 Resp 26 H 07/09/18 06:00 BP 136/98 07/09/18 06:00 Pulse Ox 100 07/09/18 06:00
[2018-07-09 07:08] LABS: Bilirubin,Total 0.7 mg/dl (0.2-1); Phosphorus 2.7 mg/dl (2.5-4.9); Total Protein 6.2 gm/dl (6.4-8.2); Troponin I 49.2 ng/ml (0-0.045)
--- NOTE | 2018-07-09 07:20 | XRay Report ---
XR chest 1V portable CLINICAL HISTORY: cardiac arrest COMPARISON STUDY: 07/08/2018 FINDINGS: The heart remains enlarged. There is a right subclavian central venous catheter. The tip pr ojects over the superior vena cava. There is an endotracheal tube approximately 9 cm above the ping . There is a nasogastric tube which passes into the stomach. There is radiographic evidence of conges tive failure/fluid overload. Small pleural effusions are suspected. Mild soft tissue prominence of th e mediastinum likely relates to technical factors given the patient's large body habitus.[There are m inor right perihilar airspace opacities IMPRESSION: 1. Persistent cardiomegaly and suspected pulmonary vascular congestion/fluid overload 2. Suspected trace effusions 3. Minor right perihilar airspace opacities Electronically signed by: Edwardo Torres M.D. 07/09/2018 7:18 AM
[2018-07-09] MEDS: HEPARIN SODIUM/DEXTROSE 25,000 UNITS/500 ML BAG IV SCH ×2 (07:23→18:16)
[2018-07-09] MEDS: PIPERACILLIN/TAZOBACTAM 4.5 GM in DEXTROSE 5% 100 ML IV SCH (07:30)
[2018-07-09] MEDS: CHLORHEXIDINE GLUCONATE 0.12% 480 ML MT SCH (07:31)
[2018-07-09] MEDS: PANTOprazole 40 MG in SYRINGE 0 ML IV SCH (07:31)
[2018-07-09 07:38] LABS: iSTAT Arterial Blood Gas HCO3 22 meg/L (19-24); iSTAT Arterial Blood Gas pCO2 38 mmHg (35-46); iSTAT Arterial Blood Gas pH 7.35 (7.35-7.45); iSTAT Carbon Dioxide 24 mEq/l (24-31); iSTAT FiO2 70 %; iSTAT Site Art Line
--- NOTE | 2018-07-09 08:06 | Critical Care Progress Note ---
Date of Service July 09, 2018 Assessment & Plan (1) Cardiac arrest: Reason Critically Ill: 23-year-old male status post cardiac arrest with return of spontaneous circulation PLAN: Neuro: Acute encephalopathy -CT head: possible anoxic injury versus multiple acute infarct, consistent with cerebral edema -EEG obtained formal report pending, daily EEGs ordered -Neurology consult, appreciate recommendations -CT head with contrast rule out venous sinus thrombosis -We will add on CTA head neck, obtain when appropriate -Continue heparin drip Therapeutic hypothermia -Reached goal temp at 1 AM -Start surface warming and attempts to decrease sedation requirements Resp: Hypoxic respiratory failure respiratory failure secondary to pneumonia versus suspicion of PE Acute respiratory distress syndrome -Convert from pressure to control to PRVC: Tidal volume 600 rate 14 FiO2 70% PEEP of 10 -AB.36/43/84/25 Dense consolidation in the right middle and lower lobe -Bronchoscopy today -Continue empiric cefepime, nasal MRSA negative discontinued vancomycin Suspicion of PEwe will continue heparin drip, holding off CTA chest for now, will obtain study when appropriate and treat empirically CV: Cardiac arrest with return of spontaneous circulation -Troponins have peaked and are decreasing -EKG: Normal sinus rhythm, rate 66, nonspecific ST abnormality, QTC is 486. -Echo completed formal report pending Nonsustained ventricular tachycardia -Amiodarone infusion -Discontinue after 24 hours Fluids/Renal: Routine BMPs D5 NS at 150 mL's per hour -Attempt to limit fluid as possible Acute kidney injury: Improving -Decreased urine output noted -Additional 40 M EQ K acetate Rhabdomyolysis -Continue to trend -If CPK same or higher will convert to bicarb infusion Lactic acid acidosis -Daily thiamine supplementation ID: Possible aspiration pneumonitis is pneumonia -Conversion to cefepime from Zosyn to decrease incidence of acute kidney injury with vancomycin and Zosyn -Acute hepatitis panel with HIV, UDS GI/Nutrition: Transaminitis -Likely secondary to shock liver -Continue to trend -We will collect hepatitis panel and obtain ammonia in a.m. labs Trickle tube feeds Heme: Erythrocytosis -Questionable anabolic steroid use and abuse previous DVT prophylaxis: Heparin infusion Endocrine: ICU hyperglycemia protocol Dextrose supplementation Possible anabolic steroid use -FSH, LH, testosterone, free testosterone, Vascular access: Chilli cath right groin, right subclavian, 18-gauge IV right AC right radial arterial line Code Status: Full code (2) Stroke: (3) Acute respiratory failure with hypoxia and hypercarbia: (4) Bilateral pneumonia: (5) Shock liver: (6) Polycythemia: (7) Morbid obesity with BMI of 45.0-49.9, adult: (8) Acute kidney failure: (9) NSTEMI (non-ST elevated myocardial infarction): Supervising Physician Co-Signing Physician Notes Reason Critically Ill: 23-year-old male status post cardiac arrest with return of spontaneous circulation PLAN: Neuro: Acute encephalopathy -Concern for possible infarct based off a CT scan, possible anoxic injury -EEG obtained formal report pending -Neurology consult pending -CT head with contrast rule out venous sinus thrombosis Therapeutic hypothermia -Reached goal temp at 1 AM -Start surface warming and attempts to decrease sedation requirements Resp: Hypoxic respiratory failure respiratory failure Acute respiratory distress syndrome -Convert from pressure to control to PRVC: Tidal volume 600 rate 14 FiO2 70% PEEP of 10 Dense consolidation in the right middle and lower lobe -Bronchoscopy today CV: Cardiac arrest with return of spontaneous circulation -Troponins have peaked and are decreasing -EKG: Normal sinus rhythm rate 66 right axis deviation nonspecific ST abnormality QTC is 486. -Echo completed formal report pending Nonsustained ventricular tachycardia -Amiodarone infusion -Discontinue after 24 hours Fluids/Renal: D5 NS at 150 mL's per hour -Attempt to limit fluid as possible Acute kidney injury: Improving -Decreased urine output noted -Additional 40 M EQ K acetate Rhabdomyolysis -Continue to trend -If CPK same or higher will convert to bicarb infusion Lactic acid acidosis -Daily thiamine supplementation ID: Possible aspiration pneumonitis is pneumonia -Vancomycin, Zosyn -Conversion to cefepime from Zosyn to decrease incidence of acute kidney injury with vancomycin and Zosyn -Acute hepatitis panel with HIV, UDS GI/Nutrition: Transaminitis -Likely secondary to shock liver -Continue to trend Trickle tube feeds Heme: Erythrocytosis -Questionable anabolic steroid use and abuse previous DVT prophylaxis: Heparin infusion Endocrine: ICU hyperglycemia protocol Dextrose supplementation Possible anabolic steroid use -FSH, LH, testosterone, free testosterone, Vascular access: Chilli cath right groin, right subclavian, 18-gauge IV right AC right radial arterial line Code Status: Full code Clinical update: Patient was found to have worsening cerebral edema, we have started mannitol and hypertonic saline and will transfer the patient to a tertiary care center. I concern for a poor prognosis as the cerebral edema is likely secondary to hypoxia. Additional history was obtained from the family as well as medical records. It appears the patient's airway was secured after the resuscitation efforts were successful, given the patient's significant size I would be concerned that passive oxygenation may have not been optimal especially given his history of significant snoring as reported by his father. A bronchoscopy was completed for pulmonary infiltrates and severe I hypoxemia/regards. A limited renal ultrasound was also performed given lack of urinary output C those respective procedure notes for further details. Ultimately the patient's Ruano catheter needed replacement and immediately urine was drained. I have personally spent 112 minutes of critical care time in the direct management of this patient. This is a life/limb threatening event. This includes time spent evaluating patient, direct bedside care, chart review, placing orders, interpretation of diagnostic studies, discussion with consultants, patient, and/or family members regarding treatment decisions, as well as other required patient management activities. This time is exclusive of all separately billable procedures, and teaching time and separate from and in addition to any other critical care service time. Subjective Mr. Gamez is a 23-year-old male with past medical history of anabolic steroid abuse, possible BOSSMAN who reportedly became pale the night of 07/07 and did not feel good per girlfriend. He went to bed and this on the morning of 07/08 was found to be cyanotic and unresponsive with pulse. EMS was called and patient went pulseless in route. He received CPR for approximately 25 minutes before return of spontaneous circulation. He had arrived at an outside hospital and was transferred to [facility]. The patient was unresponsive after return of spontaneous circulation and therapy hypothermia was initiated at 1 AM. Currently the patient is intubated and sedated with intravascular therapeutic hypothermia at goal. The patient does respond to painful stimulus and is overbreathing the ventilator. He is currently not requiring vasopressors but did have multiple runs of nonsustained V. tach overnight and was started on amiodarone drip. CT head suspicious of embolic versus hypoxic stroke and was started on heparin drip. Also of note, patient has a family history of DVT with combined use of anabolic steroids we appreciate the probability of PE. However, we will continue to hold off on further imaging with contrast secondary to CHELSEY and hypothermic therapy as it would not change course of treatment. Review of Systems Unable to obtain 12 ROS secondary to patient condition/sedation Physical Exam Vital Signs (Past 24 Hours): Last Vital Signs Temp 33.3 C L 07/09/18 07:00 Pulse 69 07/09/18 07:07 Resp 28 H 07/09/18 07:55 BP 182/101 H 07/09/18 07:00 Pulse Ox 96 07/09/18 07:07 General: GCS Glascow Coma Scale: Eyes: 1, Verbal 1T, Motor 4, Total 60 Skin: Cool, dry, Head: Atraumatic Ears, nose, mouth and throat: Obscured by endotracheal tube Cardiovascular: Decreased capillary refill, equal bilaterally Respiratory: Coarse sounds bilaterally Gastrointestinal: Non distended Musculoskeletal: No deformity Results & Data Laboratory Results Laboratory Results - last 24 hr 07/08/18 07/08/18 07/08/18 15:53 15:55 16:00 WBC 27.32 H RBC 6.18 H Hgb 19.3 H Hct 57.4 H MCV 92.9 MCH 31.2 MCHC 33.6 RDW Std Deviation 47.6 H RDW Coeff of Daxa 14.1 Plt Count 221 MPV 10.2 Immature Gran % (Auto) 2.6 Neut % (Auto) 87.1 Lymph % (Auto) 5.6 Divide % (Auto) 4.6 Eos % (Auto) 0.0 Baso % (Auto) 0.1 Immature Gran # (Auto) 0.70 H Neut # (Auto) 23.78 H Lymph # (Auto) 1.53 Divide # (Auto) 1.27 H Eos # (Auto) 0.01 Baso # (Auto) 0.03 Absolute Nucleated RBC 0.08 H Nucleated RBC % (auto) 0.3 PT INR APTT PTT Ratio Sample Site L Radial POC pH 7.07 L* POC pCO2 97 H POC pO2 90 POC HCO3 27 H POC Total CO2 30 POC Base Excess -2.0 ABG pH ABG pCO2 ABG pO2 ABG HCO3 POC ABG O2 Sat 89.0 L ABG O2 Saturation ABG Base Excess Eris Test Pass Barometric Pressure Oxygen Given O2 Delivery Device Ventilator POC O2 Rate 16 POC FiO2 100 PEEP 8 Sodium Potassium Chloride Carbon Dioxide Anion Gap BUN Creatinine Est Cr Clr Drug Dosing Est GFR ( Amer) Est GFR (Non-Af Amer) BUN/Creatinine Ratio Glucose POC Glucose 74 POC Glucose (other) Estimat Average Glucose Hemoglobin A1c Lactate Calcium Phosphorus Magnesium Total Bilirubin Direct Bilirubin AST ALT Alkaline Phosphatase Total Creatine Kinase Troponin I Total Protein Albumin Globulin Albumin/Globulin Ratio Lipase TSH Free T4 Free T3 FSH Luteinizing Hormone Testosterone Level Nasal Screen MRSA (PCR) Urine Opiates Screen Ur Methadone, Qual Urine Barbiturates Ur Phencyclidine (PCP) U Amphetamin/Meth Scrn MDMA (Ecstasy) Screen U Benzodiazepines Scrn Ur Cocaine Metabolite U Marijuana (THC) Screen Hep Bs Antigen Hepatitis C Antibody Influenza Type A (PCR) Influenza Type B (PCR) Blood Type Antibody Screen 07/08/18 07/08/18 07/08/18 16:00 16:00 16:00 WBC RBC Hgb Hct MCV MCH MCHC RDW Std Deviation RDW Coeff of Daxa Plt Count MPV Immature Gran % (Auto) Neut % (Auto) Lymph % (Auto) Divide % (Auto) Eos % (Auto) Baso % (Auto) Immature Gran # (Auto) Neut # (Auto) Lymph # (Auto) Divide # (Auto) Eos # (Auto) Baso # (Auto) Absolute Nucleated RBC Nucleated RBC % (auto) PT INR APTT PTT Ratio Sample Site POC pH POC pCO2 POC pO2 POC HCO3 POC Total CO2 POC Base Excess ABG pH 7.17 L* ABG pCO2 82 H ABG pO2 72 L ABG HCO3 29 H POC ABG O2 Sat ABG O2 Saturation 90.9 ABG Base Excess -2.9 Eris Test Pos Barometric Pressure 733.3 Oxygen Given 100% O2 Delivery Device POC O2 Rate POC FiO2 PEEP Sodium 142 Potassium 5.7 H Chloride 107 Carbon Dioxide 27 Anion Gap 8.0 BUN 21 H Creatinine 2.39 H Est Cr Clr Drug Dosing 80.7 Est GFR ( Amer) 42.4 Est GFR (Non-Af Amer) 36.6 BUN/Creatinine Ratio 8.6 L Glucose 175 H POC Glucose POC Glucose (other) Estimat Average Glucose Hemoglobin A1c Lactate 2.6 H* Calcium 6.6 L Phosphorus 5.8 H Magnesium 1.9 Total Bilirubin 0.5 Direct Bilirubin AST 842 H ALT 339 H Alkaline Phosphatase 41 L Total Creatine Kinase Troponin I 99.300 H* Total Protein 6.9 Albumin 3.1 L Globulin 3.8 Albumin/Globulin Ratio 0.8 L Lipase 642 H TSH 0.954 Free T4 Free T3 FSH Luteinizing Hormone Testosterone Level Nasal Screen MRSA (PCR) Urine Opiates Screen Ur Methadone, Qual Urine Barbiturates Ur Phencyclidine (PCP) U Amphetamin/Meth Scrn MDMA (Ecstasy) Screen U Benzodiazepines Scrn Ur Cocaine Metabolite U Marijuana (THC) Screen Hep Bs Antigen Hepatitis C Antibody Influenza Type A (PCR) Influenza Type B (PCR) Blood Type Antibody Screen 07/08/18 07/08/18 07/08/18 16:53 16:53 17:28 WBC RBC Hgb Hct MCV MCH MCHC RDW Std Deviation RDW Coeff of Daxa Plt Count MPV Immature Gran % (Auto) Neut % (Auto) Lymph % (Auto) Divide % (Auto) Eos % (Auto) Baso % (Auto) Immature Gran # (Auto) Neut # (Auto) Lymph # (Auto) Divide # (Auto) Eos # (Auto) Baso # (Auto) Absolute Nucleated RBC Nucleated RBC % (auto) PT 11.9 INR 1.2 H APTT 21.8 PTT Ratio 0.8 Sample Site POC pH POC pCO2 POC pO2 POC HCO3 POC Total CO2 POC Base Excess ABG pH ABG pCO2 ABG pO2 ABG HCO3 POC ABG O2 Sat ABG O2 Saturation ABG Base Excess Eris Test Barometric Pressure Oxygen Given O2 Delivery Device POC O2 Rate POC FiO2 PEEP Sodium Potassium Chloride Carbon Dioxide Anion Gap BUN Creatinine Est Cr Clr Drug Dosing Est GFR ( Amer) Est GFR (Non-Af Amer) BUN/Creatinine Ratio Glucose POC Glucose POC Glucose (other) Estimat Average Glucose Hemoglobin A1c Lactate Calcium Phosphorus Magnesium Total Bilirubin Direct Bilirubin AST ALT Alkaline Phosphatase Total Creatine Kinase 15119 H Troponin I 111.000 H* Total Protein Albumin Globulin Albumin/Globulin Ratio Lipase TSH Free T4 Free T3 FSH Luteinizing Hormone Testosterone Level Nasal Screen MRSA (PCR) Urine Opiates Screen Ur Methadone, Qual Urine Barbiturates Ur Phencyclidine (PCP) U Amphetamin/Meth Scrn MDMA (Ecstasy) Screen U Benzodiazepines Scrn Ur Cocaine Metabolite U Marijuana (THC) Screen Hep Bs Antigen Hepatitis C Antibody Influenza Type A (PCR) Influenza Type B (PCR) Blood Type Antibody Screen 07/08/18 07/08/18 07/08/18 17:33 17:46 18:20 WBC RBC Hgb Hct MCV MCH MCHC RDW Std Deviation RDW Coeff of Daxa Plt Count MPV Immature Gran % (Auto) Neut % (Auto) Lymph % (Auto) Divide % (Auto) Eos % (Auto) Baso % (Auto) Immature Gran # (Auto) Neut # (Auto) Lymph # (Auto) Divide # (Auto) Eos # (Auto) Baso # (Auto) Absolute Nucleated RBC Nucleated RBC % (auto) PT INR APTT PTT Ratio Sample Site Art Line POC pH 7.24 L POC pCO2 66 H POC pO2 72 L POC HCO3 28 H POC Total CO2 30 POC Base Excess 1.0 ABG pH ABG pCO2 ABG pO2 ABG HCO3 POC ABG O2 Sat 90.0 ABG O2 Saturation ABG Base Excess Eris Test NA Barometric Pressure Oxygen Given O2 Delivery Device Ventilator POC O2 Rate 24 POC FiO2 10 PEEP 8 Sodium Potassium Chloride Carbon Dioxide Anion Gap BUN Creatinine Est Cr Clr Drug Dosing Est GFR ( Amer) Est GFR (Non-Af Amer) BUN/Creatinine Ratio Glucose POC Glucose 125 H POC Glucose (other) Estimat Average Glucose Hemoglobin A1c Lactate Calcium Phosphorus Magnesium Total Bilirubin Direct Bilirubin AST ALT Alkaline Phosphatase Total Creatine Kinase Troponin I Total Protein Albumin Globulin Albumin/Globulin Ratio Lipase TSH Free T4 Free T3 FSH Luteinizing Hormone Testosterone Level Nasal Screen MRSA (PCR) Negative Urine Opiates Screen Ur Methadone, Qual Urine Barbiturates Ur Phencyclidine (PCP) U Amphetamin/Meth Scrn MDMA (Ecstasy) Screen U Benzodiazepines Scrn Ur Cocaine Metabolite U Marijuana (THC) Screen Hep Bs Antigen Hepatitis C Antibody Influenza Type A (PCR) Influenza Type B (PCR) Blood Type Antibody Screen 07/08/18 07/08/18 07/08/18 20:00 20:09 21:01 WBC RBC Hgb Hct MCV MCH MCHC RDW Std Deviation RDW Coeff of Daxa Plt Count MPV Immature Gran % (Auto) Neut % (Auto) Lymph % (Auto) Divide % (Auto) Eos % (Auto) Baso % (Auto) Immature Gran # (Auto) Neut # (Auto) Lymph # (Auto) Divide # (Auto) Eos # (Auto) Baso # (Auto) Absolute Nucleated RBC Nucleated RBC % (auto) PT INR APTT PTT Ratio Sample Site POC pH POC pCO2 POC pO2 POC HCO3 POC Total CO2 POC Base Excess ABG pH ABG pCO2 ABG pO2 ABG HCO3 POC ABG O2 Sat ABG O2 Saturation ABG Base Excess Eris Test Barometric Pressure Oxygen Given O2 Delivery Device POC O2 Rate POC FiO2 PEEP Sodium Potassium Chloride Carbon Dioxide Anion Gap BUN Creatinine Est Cr Clr Drug Dosing Est GFR ( Amer) Est GFR (Non-Af Amer) BUN/Creatinine Ratio Glucose POC Glucose 70 67 L* POC Glucose (other) Estimat Average Glucose Hemoglobin A1c Lactate Calcium Phosphorus Magnesium Total Bilirubin Direct Bilirubin AST ALT Alkaline Phosphatase Total Creatine Kinase Troponin I Total Protein Albumin Globulin Albumin/Globulin Ratio Lipase TSH Free T4 Free T3 FSH Luteinizing Hormone Testosterone Level Nasal Screen MRSA (PCR) Urine Opiates Screen Ur Methadone, Qual Urine Barbiturates Ur Phencyclidine (PCP) U Amphetamin/Meth Scrn MDMA (Ecstasy) Screen U Benzodiazepines Scrn Ur Cocaine Metabolite U Marijuana (THC) Screen Hep Bs Antigen Hepatitis C Antibody Influenza Type A (PCR) Neg for Influ A Influenza Type B (PCR) Neg for Influ B Blood Type Antibody Screen 07/08/18 07/08/18 07/08/18 21:52 21:52 21:52 WBC 23.54 H RBC 5.94 Hgb 18.4 H Hct 54.1 H MCV 91.1 MCH 31.0 MCHC 34.0 RDW Std Deviation 47.3 H RDW Coeff of Daxa 14.1 Plt Count 219 MPV 10.4 Immature Gran % (Auto) 0.9 Neut % (Auto) 86.7 Lymph % (Auto) 8.2 Divide % (Auto) 4.2 Eos % (Auto) 0.0 Baso % (Auto) 0.0 Immature Gran # (Auto) 0.21 H Neut # (Auto) 20.41 H Lymph # (Auto) 1.92 Divide # (Auto) 1.00 H Eos # (Auto) 0.00 Baso # (Auto) 0.00 Absolute Nucleated RBC Nucleated RBC % (auto) PT INR APTT PTT Ratio Sample Site POC pH POC pCO2 POC pO2 POC HCO3 POC Total CO2 POC Base Excess ABG pH ABG pCO2 ABG pO2 ABG HCO3 POC ABG O2 Sat ABG O2 Saturation ABG Base Excess Eris Test Barometric Pressure Oxygen Given O2 Delivery Device POC O2 Rate POC FiO2 PEEP Sodium 141 Potassium 3.9 D Chloride 107 Carbon Dioxide 25 Anion Gap 10.0 BUN 23 H Creatinine 2.12 H Est Cr Clr Drug Dosing 90.9 Est GFR ( Amer) 49.0 Est GFR (Non-Af Amer) 42.3 BUN/Creatinine Ratio 10.9 Glucose 156 H POC Glucose POC Glucose (other) Estimat Average Glucose Hemoglobin A1c Lactate Calcium 6.5 L Phosphorus 3.7 D Magnesium 1.5 L Total Bilirubin Direct Bilirubin AST ALT Alkaline Phosphatase Total Creatine Kinase Troponin I 72.200 H* Cancelled Total Protein Albumin Globulin Albumin/Globulin Ratio Lipase TSH Free T4 Free T3 FSH Luteinizing Hormone Testosterone Level Nasal Screen MRSA (PCR) Urine Opiates Screen Ur Methadone, Qual Urine Barbiturates Ur Phencyclidine (PCP) U Amphetamin/Meth Scrn MDMA (Ecstasy) Screen U Benzodiazepines Scrn Ur Cocaine Metabolite U Marijuana (THC) Screen Hep Bs Antigen Hepatitis C Antibody Influenza Type A (PCR) Influenza Type B (PCR) Blood Type Antibody Screen 07/08/18 07/08/18 07/08/18 22:09 22:44 23:10 WBC RBC Hgb Hct MCV MCH MCHC RDW Std Deviation RDW Coeff of Daxa Plt Count MPV Immature Gran % (Auto) Neut % (Auto) Lymph % (Auto) Divide % (Auto) Eos % (Auto) Baso % (Auto) Immature Gran # (Auto) Neut # (Auto) Lymph # (Auto) Divide # (Auto) Eos # (Auto) Baso # (Auto) Absolute Nucleated RBC Nucleated RBC % (auto) PT INR APTT PTT Ratio Sample Site Art Line POC pH 7.39 POC pCO2 39 POC pO2 112 H POC HCO3 25 H POC Total CO2 26 POC Base Excess -1.0 ABG pH ABG pCO2 ABG pO2 ABG HCO3 POC ABG O2 Sat 99.0 H ABG O2 Saturation ABG Base Excess Eris Test Pass Barometric Pressure Oxygen Given O2 Delivery Device Ventilator POC O2 Rate 24 POC FiO2 100 PEEP 8 Sodium Potassium Chloride Carbon Dioxide Anion Gap BUN Creatinine Est Cr Clr Drug Dosing Est GFR ( Amer) Est GFR (Non-Af Amer) BUN/Creatinine Ratio Glucose POC Glucose 136 H 105 H POC Glucose (other) Estimat Average Glucose Hemoglobin A1c Lactate Calcium Phosphorus Magnesium Total Bilirubin Direct Bilirubin AST ALT Alkaline Phosphatase Total Creatine Kinase Troponin I Total Protein Albumin Globulin Albumin/Globulin Ratio Lipase TSH Free T4 Free T3 FSH Luteinizing Hormone Testosterone Level Nasal Screen MRSA (PCR) Urine Opiates Screen Ur Methadone, Qual Urine Barbiturates Ur Phencyclidine (PCP) U Amphetamin/Meth Scrn MDMA (Ecstasy) Screen U Benzodiazepines Scrn Ur Cocaine Metabolite U Marijuana (THC) Screen Hep Bs Antigen Hepatitis C Antibody Influenza Type A (PCR) Influenza Type B (PCR) Blood Type Antibody Screen 07/09/18 07/09/18 07/09/18 00:06 01:13 02:06 WBC RBC Hgb Hct MCV MCH MCHC RDW Std Deviation RDW Coeff of Daxa Plt Count MPV Immature Gran % (Auto) Neut % (Auto) Lymph % (Auto) Divide % (Auto) Eos % (Auto) Baso % (Auto) Immature Gran # (Auto) Neut # (Auto) Lymph # (Auto) Divide # (Auto) Eos # (Auto) Baso # (Auto) Absolute Nucleated RBC Nucleated RBC % (auto) PT INR APTT 50.4 H* PTT Ratio 1.9 Sample Site POC pH POC pCO2 POC pO2 POC HCO3 POC Total CO2 POC Base Excess ABG pH ABG pCO2 ABG pO2 ABG HCO3 POC ABG O2 Sat ABG O2 Saturation ABG Base Excess Eris Test Barometric Pressure Oxygen Given O2 Delivery Device POC O2 Rate POC FiO2 PEEP Sodium Potassium Chloride Carbon Dioxide Anion Gap BUN Creatinine Est Cr Clr Drug Dosing Est GFR ( Amer) Est GFR (Non-Af Amer) BUN/Creatinine Ratio Glucose POC Glucose 92 134 H POC Glucose (other) Estimat Average Glucose Hemoglobin A1c Lactate Calcium Phosphorus Magnesium Total Bilirubin Direct Bilirubin AST ALT Alkaline Phosphatase Total Creatine Kinase Troponin I Total Protein Albumin Globulin Albumin/Globulin Ratio Lipase TSH Free T4 Free T3 FSH Luteinizing Hormone Testosterone Level Nasal Screen MRSA (PCR) Urine Opiates Screen Ur Methadone, Qual Urine Barbiturates Ur Phencyclidine (PCP) U Amphetamin/Meth Scrn MDMA (Ecstasy) Screen U Benzodiazepines Scrn Ur Cocaine Metabolite U Marijuana (THC) Screen Hep Bs Antigen Hepatitis C Antibody Influenza Type A (PCR) Influenza Type B (PCR) Blood Type Antibody Screen 07/09/18 07/09/18 07/09/18 02:06 02:06 02:06 WBC 22.27 H RBC 5.88 Hgb 18.5 H Hct 53.4 H MCV 90.8 MCH 31.5 MCHC 34.6 RDW Std Deviation 46.9 H RDW Coeff of Daxa 14.1 Plt Count 201 MPV 10.0 Immature Gran % (Auto) 0.5 Neut % (Auto) 87.4 Lymph % (Auto) 8.1 Divide % (Auto) 4.0 Eos % (Auto) 0.0 Baso % (Auto) 0.0 Immature Gran # (Auto) 0.12 H Neut # (Auto) 19.44 H Lymph # (Auto) 1.80 Divide # (Auto) 0.90 H Eos # (Auto) 0.00 Baso # (Auto) 0.01 Absolute Nucleated RBC Nucleated RBC % (auto) PT INR APTT PTT Ratio Sample Site POC pH POC pCO2 POC pO2 POC HCO3 POC Total CO2 POC Base Excess ABG pH ABG pCO2 ABG pO2 ABG HCO3 POC ABG O2 Sat ABG O2 Saturation ABG Base Excess Eris Test Barometric Pressure Oxygen Given O2 Delivery Device POC O2 Rate POC FiO2 PEEP Sodium 140 Potassium 4.1 Chloride 106 Carbon Dioxide 26 Anion Gap 8.0 BUN 23 H Creatinine 1.71 H D Est Cr Clr Drug Dosing 112.7 Est GFR ( Amer) 63.5 Est GFR (Non-Af Amer) 54.8 BUN/Creatinine Ratio 13.2 Glucose 157 H POC Glucose 159 H POC Glucose (other) Estimat Average Glucose Hemoglobin A1c Lactate Calcium 6.9 L Phosphorus 3.6 Magnesium 1.9 Total Bilirubin Direct Bilirubin AST ALT Alkaline Phosphatase Total Creatine Kinase Troponin I Total Protein Albumin Globulin Albumin/Globulin Ratio Lipase TSH Free T4 Free T3 FSH Luteinizing Hormone Testosterone Level Nasal Screen MRSA (PCR) Urine Opiates Screen Ur Methadone, Qual Urine Barbiturates Ur Phencyclidine (PCP) U Amphetamin/Meth Scrn MDMA (Ecstasy) Screen U Benzodiazepines Scrn Ur Cocaine Metabolite U Marijuana (THC) Screen Hep Bs Antigen Hepatitis C Antibody Influenza Type A (PCR) Influenza Type B (PCR) Blood Type Antibody Screen 07/09/18 07/09/18 07/09/18 03:11 03:43 04:08 WBC RBC Hgb Hct MCV MCH MCHC RDW Std Deviation RDW Coeff of Daxa Plt Count MPV Immature Gran % (Auto) Neut % (Auto) Lymph % (Auto) Divide % (Auto) Eos % (Auto) Baso % (Auto) Immature Gran # (Auto) Neut # (Auto) Lymph # (Auto) Divide # (Auto) Eos # (Auto) Baso # (Auto) Absolute Nucleated RBC Nucleated RBC % (auto) PT INR APTT PTT Ratio Sample Site Art Line POC pH 7.43 POC pCO2 33 L POC pO2 226 H POC HCO3 23 POC Total CO2 24 POC Base Excess -2.0 ABG pH ABG pCO2 ABG pO2 ABG HCO3 POC ABG O2 Sat 100.0 H ABG O2 Saturation ABG Base Excess Eris Test NA Barometric Pressure Oxygen Given O2 Delivery Device Ventilator POC O2 Rate 26 POC FiO2 100 PEEP 10 Sodium Potassium Chloride Carbon Dioxide Anion Gap BUN Creatinine Est Cr Clr Drug Dosing Est GFR ( Amer) Est GFR (Non-Af Amer) BUN/Creatinine Ratio Glucose POC Glucose 156 H 147 H POC Glucose (other) Estimat Average Glucose Hemoglobin A1c Lactate Calcium Phosphorus Magnesium Total Bilirubin Direct Bilirubin AST ALT Alkaline Phosphatase Total Creatine Kinase Troponin I Total Protein Albumin Globulin Albumin/Globulin Ratio Lipase TSH Free T4 Free T3 FSH Luteinizing Hormone Testosterone Level Nasal Screen MRSA (PCR) Urine Opiates Screen Ur Methadone, Qual Urine Barbiturates Ur Phencyclidine (PCP) U Amphetamin/Meth Scrn MDMA (Ecstasy) Screen U Benzodiazepines Scrn Ur Cocaine Metabolite U Marijuana (THC) Screen Hep Bs Antigen Hepatitis C Antibody Influenza Type A (PCR) Influenza Type B (PCR) Blood Type Antibody Screen 07/09/18 07/09/18 07/09/18 05:00 06:03 06:04 WBC 20.65 H RBC 5.76 Hgb 18.1 H Hct 52.1 H MCV 90.5 MCH 31.4 MCHC 34.7 RDW Std Deviation 47.1 H RDW Coeff of Daxa 14.2 Plt Count 196 MPV 10.4 Immature Gran % (Auto) 0.5 Neut % (Auto) 84.9 Lymph % (Auto) 10.8 Divide % (Auto) 3.8 Eos % (Auto) 0.0 Baso % (Auto) 0.0 Immature Gran # (Auto) 0.11 H Neut # (Auto) 17.50 H Lymph # (Auto) 2.24 Divide # (Auto) 0.79 H Eos # (Auto) 0.00 Baso # (Auto) 0.01 Absolute Nucleated RBC Nucleated RBC % (auto) PT INR APTT PTT Ratio Sample Site POC pH POC pCO2 POC pO2 POC HCO3 POC Total CO2 POC Base Excess ABG pH ABG pCO2 ABG pO2 ABG HCO3 POC ABG O2 Sat ABG O2 Saturation ABG Base Excess Eris Test Barometric Pressure Oxygen Given O2 Delivery Device POC O2 Rate POC FiO2 PEEP Sodium Potassium Chloride Carbon Dioxide Anion Gap BUN Creatinine Est Cr Clr Drug Dosing Est GFR ( Amer) Est GFR (Non-Af Amer) BUN/Creatinine Ratio Glucose POC Glucose 135 H 148 H POC Glucose (other) Estimat Average Glucose Hemoglobin A1c Lactate Calcium Phosphorus Magnesium Total Bilirubin Direct Bilirubin AST ALT Alkaline Phosphatase Total Creatine Kinase Troponin I Total Protein Albumin Globulin Albumin/Globulin Ratio Lipase TSH Free T4 Free T3 FSH Luteinizing Hormone Testosterone Level Nasal Screen MRSA (PCR) Urine Opiates Screen Ur Methadone, Qual Urine Barbiturates Ur Phencyclidine (PCP) U Amphetamin/Meth Scrn MDMA (Ecstasy) Screen U Benzodiazepines Scrn Ur Cocaine Metabolite U Marijuana (THC) Screen Hep Bs Antigen Hepatitis C Antibody Influenza Type A (PCR) Influenza Type B (PCR) Blood Type Antibody Screen 07/09/18 07/09/18 07/09/18 06:04 06:04 06:04 WBC RBC Hgb Hct MCV MCH MCHC RDW Std Deviation RDW Coeff of Dax[place] Plt Count MPV Immature Gran % (Auto) Neut % (Auto) Lymph % (Auto) Divide % (Auto) Eos % (Auto) Baso % (Auto) Immature Gran # (Auto) Neut # (Auto) Lymph # (Auto) Divide # (Auto) Eos # (Auto) Baso # (Auto) Absolute Nucleated RBC Nucleated RBC % (auto) PT 11.9 INR 1.2 H APTT PTT Ratio Sample Site POC pH POC pCO2 POC pO2 POC HCO3 POC Total CO2 POC Base Excess ABG pH ABG pCO2 ABG pO2 ABG HCO3 POC ABG O2 Sat ABG O2 Saturation ABG Base Excess Eris Test Barometric Pressure Oxygen Given O2 Delivery Device POC O2 Rate POC FiO2 PEEP Sodium 138 Potassium 3.7 Chloride 106 Carbon Dioxide 23 Anion Gap 9.0 BUN 22 H Creatinine 1.60 H Est Cr Clr Drug Dosing 120.5 Est GFR ( Amer) 68.9 Est GFR (Non-Af Amer) 59.4 BUN/Creatinine Ratio 13.6 Glucose 152 H POC Glucose POC Glucose (other) Estimat Average Glucose 108 Hemoglobin A1c 5.4 Lactate Calcium 6.7 L Phosphorus 2.7 Magnesium 1.8 Total Bilirubin 0.7 Direct Bilirubin 0.3 H AST 912 H ALT 362 H Alkaline Phosphatase 29 L Total Creatine Kinase Troponin I 49.200 H* Total Protein 6.2 L Albumin 2.6 L Globulin Albumin/Globulin Ratio Lipase TSH Free T4 Free T3 FSH Luteinizing Hormone Testosterone Level Nasal Screen MRSA (PCR) Urine Opiates Screen Ur Methadone, Qual Urine Barbiturates Ur Phencyclidine (PCP) U Amphetamin/Meth Scrn MDMA (Ecstasy) Screen U Benzodiazepines Scrn Ur Cocaine Metabolite U Marijuana (THC) Screen Hep Bs Antigen Hepatitis C Antibody Influenza Type A (PCR) Influenza Type B (PCR) Blood Type Antibody Screen 07/09/18 07/09/18 07/09/18 06:04 07:17 07:25 WBC RBC Hgb Hct MCV MCH MCHC RDW Std Deviation RDW Coeff of Daxa Plt Count MPV Immature Gran % (Auto) Neut % (Auto) Lymph % (Auto) Divide % (Auto) Eos % (Auto) Baso % (Auto) Immature Gran # (Auto) Neut # (Auto) Lymph # (Auto) Divide # (Auto) Eos # (Auto) Baso # (Auto) Absolute Nucleated RBC Nucleated RBC % (auto) PT INR APTT PTT Ratio Sample Site Art Line POC pH 7.35 POC pCO2 38 POC pO2 68 L POC HCO3 22 POC Total CO2 24 POC Base Excess -4.0 ABG pH ABG pCO2 ABG pO2 ABG HCO3 POC ABG O2 Sat 96.0 H ABG O2 Saturation ABG Base Excess Eris Test NA Barometric Pressure Oxygen Given O2 Delivery Device Ventilator POC O2 Rate 26 POC FiO2 70 PEEP 10 Sodium Potassium Chloride Carbon Dioxide Anion Gap BUN Creatinine Est Cr Clr Drug Dosing Est GFR ( Amer) Est GFR (Non-Af Amer) BUN/Creatinine Ratio Glucose POC Glucose POC Glucose (other) 139 H Estimat Average Glucose Hemoglobin A1c Lactate 2.7 H* Calcium Phosphorus Magnesium Total Bilirubin Direct Bilirubin AST ALT Alkaline Phosphatase Total Creatine Kinase Troponin I Total Protein Albumin Globulin Albumin/Globulin Ratio Lipase TSH Free T4 Free T3 FSH Luteinizing Hormone Testosterone Level Nasal Screen MRSA (PCR) Urine Opiates Screen Ur Methadone, Qual Urine Barbiturates Ur Phencyclidine (PCP) U Amphetamin/Meth Scrn MDMA (Ecstasy) Screen U Benzodiazepines Scrn Ur Cocaine Metabolite U Marijuana (THC) Screen Hep Bs Antigen Hepatitis C Antibody Influenza Type A (PCR) Influenza Type B (PCR) Blood Type Antibody Screen 07/09/18 07/09/18 07/09/18 09:49 09:49 09:49 WBC 15.83 H RBC 4.76 Hgb 14.7 D Hct 43.4 MCV 91.2 MCH 30.9 MCHC 33.9 RDW Std Deviation 47.2 H RDW Coeff of Daxa 14.2 Plt Count 173 MPV 10.1 Immature Gran % (Auto) 0.4 Neut % (Auto) 85.0 Lymph % (Auto) 10.3 Divide % (Auto) 4.2 Eos % (Auto) 0.0 Baso % (Auto) 0.1 Immature Gran # (Auto) 0.06 H Neut # (Auto) 13.46 H Lymph # (Auto) 1.63 Divide # (Auto) 0.67 H Eos # (Auto) 0.00 Baso # (Auto) 0.01 Absolute Nucleated RBC Nucleated RBC % (auto) PT INR APTT PTT Ratio Sample Site POC pH POC pCO2 POC pO2 POC HCO3 POC Total CO2 POC Base Excess ABG pH ABG pCO2 ABG pO2 ABG HCO3 POC ABG O2 Sat ABG O2 Saturation ABG Base Excess Eris Test Barometric Pressure Oxygen Given O2 Delivery Device POC O2 Rate POC FiO2 PEEP Sodium Potassium 2.4 L* D Chloride 120 H Carbon Dioxide 18 L Anion Gap 9.0 BUN 15 Creatinine 0.94 D Est Cr Clr Drug Dosing 205.1 Est GFR ( Amer) 131.0 Est GFR (Non-Af Amer) 113.0 BUN/Creatinine Ratio 15.5 Glucose 99 POC Glucose POC Glucose (other) Estimat Average Glucose Hemoglobin A1c Lactate Calcium Phosphorus 1.9 L Magnesium 1.0 L Total Bilirubin Direct Bilirubin AST ALT Alkaline Phosphatase Total Creatine Kinase Troponin I Total Protein Albumin Globulin Albumin/Globulin Ratio Lipase TSH Free T4 1.02 Free T3 2.16 L FSH Luteinizing Hormone Testosterone Level Nasal Screen MRSA (PCR) Urine Opiates Screen Ur Methadone, Qual Urine Barbiturates Ur Phencyclidine (PCP) U Amphetamin/Meth Scrn MDMA (Ecstasy) Screen U Benzodiazepines Scrn Ur Cocaine Metabolite U Marijuana (THC) Screen Hep Bs Antigen Hepatitis C Antibody Influenza Type A (PCR) Influenza Type B (PCR) Blood Type Antibody Screen 07/09/18 07/09/18 07/09/18 09:49 09:54 09:55 WBC RBC Hgb Hct MCV MCH MCHC RDW Std Deviation RDW Coeff of Daxa Plt Count MPV Immature Gran % (Auto) Neut % (Auto) Lymph % (Auto) Divide % (Auto) Eos % (Auto) Baso % (Auto) Immature Gran # (Auto) Neut # (Auto) Lymph # (Auto) Divide # (Auto) Eos # (Auto) Baso # (Auto) Absolute Nucleated RBC Nucleated RBC % (auto) PT INR APTT PTT Ratio Sample Site POC pH POC pCO2 POC pO2 POC HCO3 POC Total CO2 POC Base Excess ABG pH ABG pCO2 ABG pO2 ABG HCO3 POC ABG O2 Sat ABG O2 Saturation ABG Base Excess Eris Test Barometric Pressure Oxygen Given O2 Delivery Device POC O2 Rate POC FiO2 PEEP Sodium Potassium Chloride Carbon Dioxide Anion Gap BUN Creatinine Est Cr Clr Drug Dosing Est GFR ( Amer) Est GFR (Non-Af Amer) BUN/Creatinine Ratio Glucose POC Glucose POC Glucose (other) Estimat Average Glucose Hemoglobin A1c Lactate 1.7 Calcium Phosphorus Magnesium Total Bilirubin Direct Bilirubin AST ALT Alkaline Phosphatase Total Creatine Kinase Troponin I Total Protein Albumin Globulin Albumin/Globulin Ratio Lipase TSH Free T4 Free T3 FSH < 0.30 Luteinizing Hormone < 0.07 Testosterone Level 416.8 Nasal Screen MRSA (PCR) Urine Opiates Screen Ur Methadone, Qual Urine Barbiturates Ur Phencyclidine (PCP) U Amphetamin/Meth Scrn MDMA (Ecstasy) Screen U Benzodiazepines Scrn Ur Cocaine Metabolite U Marijuana (THC) Screen Hep Bs Antigen Neg Hepatitis C Antibody Neg Influenza Type A (PCR) Influenza Type B (PCR) Blood Type AB Positive Antibody Screen NEGATIVE 07/09/18 Unknown WBC RBC Hgb Hct MCV MCH MCHC RDW Std Deviation RDW Coeff of Daxa Plt Count MPV Immature Gran % (Auto) Neut % (Auto) Lymph % (Auto) Divide % (Auto) Eos % (Auto) Baso % (Auto) Immature Gran # (Auto) Neut # (Auto) Lymph # (Auto) Divide # (Auto) Eos # (Auto) Baso # (Auto) Absolute Nucleated RBC Nucleated RBC % (auto) PT INR APTT PTT Ratio Sample Site POC pH POC pCO2 POC pO2 POC HCO3 POC Total CO2 POC Base Excess ABG pH ABG pCO2 ABG pO2 ABG HCO3 POC ABG O2 Sat ABG O2 Saturation ABG Base Excess Eris Test Barometric Pressure Oxygen Given O2 Delivery Device POC O2 Rate POC FiO2 PEEP Sodium Potassium Chloride Carbon Dioxide Anion Gap BUN Creatinine Est Cr Clr Drug Dosing Est GFR ( Amer) Est GFR (Non-Af Amer) BUN/Creatinine Ratio Glucose POC Glucose POC Glucose (other) Estimat Average Glucose Hemoglobin A1c Lactate Calcium Phosphorus Magnesium Total Bilirubin Direct Bilirubin AST ALT Alkaline Phosphatase Total Creatine Kinase Troponin I Total Protein Albumin Globulin Albumin/Globulin Ratio Lipase TSH Free T4 Free T3 FSH Luteinizing Hormone Testosterone Level Nasal Screen MRSA (PCR) Urine Opiates Screen Neg Ur Methadone, Qual Neg Urine Barbiturates Neg Ur Phencyclidine (PCP) Neg U Amphetamin/Meth Scrn Neg MDMA (Ecstasy) Screen Neg U Benzodiazepines Scrn Neg Ur Cocaine Metabolite Neg U Marijuana (THC) Screen Pos H Hep Bs Antigen Hepatitis C Antibody Influenza Type A (PCR) Influenza Type B (PCR) Blood Type Antibody Screen Diagnostic Findings Active Medications Acetaminophen (Tylenol) 650 mg FL ONE PRN PRN Reason: Rebound Hyperthermia x 1 dose Stop: 08/07/18 17:24 Chlorhexidine Gluconate (Peridex) 15 ml MT DAILY [facility] Stop: 08/07/18 17:59 Last Admin: 07/09/18 07:31 Dose: 15 ml Documented by: Dextrose (Dextrose 50%) 25 - 50 ml IV UD PRN; Protocol PRN Reason: Hypoglycemia Protocol Stop: 08/07/18 16:44 Glucagon (Glucagen) 1 mg IM UD PRN; Protocol PRN Reason: Hypoglycemia Protocol Stop: 08/07/18 16:44 Glucose (Glucose 40%) 15 - 30 gm PO UD PRN; Protocol PRN Reason: Hypoglycemia Protocol Stop: 08/07/18 16:44 Glucose (Dex4 Glucose) 4 - 8 tabs PO UD PRN; Protocol PRN Reason: Hypoglycemia Protocol Stop: 08/07/18 16:44 Fentanyl Citrate (Fentanyl Drip) 1,250 mcg in 250 mls @ 15 mls/hr IV .[id number] [facility]; Protocol Stop: 07/22/18 17:24 Last Admin: 07/09/18 06:35 Dose: 75 mcg/hr, 15 mls/hr Documented by: Propofol (Diprivan) 1,000 mg in 100 mls @ 51.71 mls/hr IV .Q1H57M [facility]; Protocol Stop: 07/11/18 17:24 Last Admin: 07/09/18 11:36 Dose: 50 mcg/kg/min, 51.7 mls/hr Documented by: Heparin Sodium/Dextrose (Heparin Sodium/Dextrose) 25,000 units in 500 mls @ 43 mls/hr IV .[id number] [facility]; Protocol Stop: 08/07/18 17:59 Last Admin: 07/09/18 07:23 Dose: 2,150 units/hr, 43 mls/hr Documented by: Pantoprazole Sodium 40 mg/ (Syringe) 10 mls @ 5 mls/min IV BID [facility] Stop: 08/07/18 20:59 Last Admin: 07/09/18 07:31 Dose: 5 mls/min Documented by: Amiodarone HCl/Dextrose (Nexterone / D5w) 360 mg in 200 mls @ 16.667 mls/hr IV .Q12H [facility] Stop: 07/09/18 23:00 Last Admin: 07/09/18 05:08 Dose: 0.5 mg/min, 16.7 mls/hr Documented by: Dextrose/Sodium Chloride (D5w And Nss) 1,000 mls @ 150 mls/hr IV .Q6H40M [facility] Stop: 08/08/18 00:14 Last Admin: 07/09/18 11:01 Dose: 150 mls/hr Documented by: Potassium Acetate 20 meq/ (Sodium Chloride) 110 mls @ 55 mls/hr IV Q2H [facility] Stop: 07/09/18 13:29 Last Admin: 07/09/18 11:35 Dose: 55 mls/hr Documented by: Cefepime HCl 2,000 mg/ Syringe 12.5 mls @ 5 mls/min IV Q12H [facility] Stop: 07/16/18 15:59 Magnesium Sulfate/Dextrose (Magnesium Sulfate / D5w) 1 gm in 100 mls @ 100 mls/hr IV Q1H [facility] Stop: 07/09/18 12:14 Last Admin: 07/09/18 11:02 Dose: 100 mls/hr Documented by: Ipratropium [place] (Atrovent 0.02% 0.5mg/2.5ml) 0.5 mg INH Q4H PRN PRN Reason: Dyspnea Stop: 08/07/18 15:33 Levalbuterol HCl (Xopenex 0.63 Mg/3 Ml Neb) 0.63 mg INH Q4H PRN PRN Reason: Dyspnea Stop: 08/07/18 15:33 Miscellaneous ([facility] Protocol For Hyperglycemia) 1 ea N/A PRN PRN; Protocol PRN Reason: Hyperglycemia Protocol Stop: 07/10/18 15:33 Miscellaneous (Carbohydrates For Hypoglycemia) 15 - 30 gm PO UD PRN PRN Reason: Hypoglycemia Treatment Stop: 08/07/18 16:44 Thiamine HCl (Vitamin B-1) 100 mg PO DAILY [facility] Stop: 08/09/18 08:59 (1) Acute kidney failure Acute renal failure type: unspecified Qualified Code(s): N17.9 - Acute kidney failure, unspecified (2) Bilateral pneumonia Lung location: lower lobe of lung Pneumonia type: due to unspecified organism Qualified Code(s): J18.1 - Lobar pneumonia, unspecified organism
--- NOTE | 2018-07-09 09:42 | Procedure Note ---
EEG Procedure Note Date of Service July 09, 2018 Start / End Times Start Time: 8:01 AM End Time: 8:21 AM Referring Physician MARLENY Lares History 23-year-old male status post cardiac arrest and unresponsive. EEG for further evaluation of unresponsiveness to rule out nonconvulsive status and seizures. Inpatient Medication List Chlorhexidine Gluconate (Peridex) 15 ml MT DAILY [facility] Stop: 08/07/18 17:59 Last Admin: 07/09/18 07:31 Dose: 15 ml Documented by: [id number] Admin: 07/08/18 22:33 Dose: Not Given Documented by: [id number] Fentanyl Citrate (Fentanyl Drip) 1,250 mcg in 250 mls @ 15 mls/hr IV .[id number] [facility]; Protocol Stop: 07/22/18 17:24 Last Admin: 07/09/18 06:35 Dose: 75 mcg/hr, 15 mls/hr Documented by: [id number] Cosigned by: [id number] Titration: 07/09/18 06:35 Dose: 50 mcg/hr, 10 mls/hr Documented by: [id number] Cosigned by: [id number] Titration: 07/08/18 22:31 Dose: 50 mcg/hr, 10 mls/hr Documented by: [id number] Admin: 07/08/18 22:19 Dose: 25 mcg/hr, 5 mls/hr Documented by: [id number] Cosigned by: [id number] Admin: 07/08/18 18:44 Dose: Not Given Documented by: [id number] Propofol (Diprivan) 1,000 mg in 100 mls @ 51.71 mls/hr IV .Q1H57M [facility]; Protocol Stop: 07/11/18 17:24 Last Admin: 07/09/18 09:31 Dose: 50 mcg/kg/min, 51.7 mls/hr Documented by: [id number] Cosigned by: [id number] Titration: 07/09/18 09:26 Dose: 50 mcg/kg/min, 51.7 mls/hr Documented by: [id number] Cosigned by: [id number] Admin: 07/09/18 07:29 Dose: 50 mcg/kg/min, 51.7 mls/hr Documented by: [id number] Cosigned by: [id number] Titration: 07/09/18 07:29 Dose: 33.84 mcg/kg/min, 35 mls/hr Documented by: [id number] Cosigned by: [id number] Admin: 07/09/18 06:36 Dose: 33.84 mcg/kg/min, 35 mls/hr Documented by: [id number] Cosigned by: [id number] Titration: 07/09/18 06:36 Dose: 30 mcg/kg/min, 31 mls/hr Documented by: [id number] Cosigned by: [id number] Admin: 07/09/18 05:08 Dose: 30 mcg/kg/min, 31 mls/hr Documented by: [id number] Cosigned by: [id number] Titration: 07/09/18 04:57 Dose: 30 mcg/kg/min, 31 mls/hr Documented by: [id number] Cosigned by: [id number] Admin: 07/09/18 01:43 Dose: 30 mcg/kg/min, 31 mls/hr Documented by: [id number] Cosigned by: [id number] Titration: 07/09/18 01:38 Dose: 30 mcg/kg/min, 31 mls/hr Documented by: [id number] Cosigned by: [id number] Titration: 07/08/18 22:31 Dose: 30 mcg/kg/min, 31 mls/hr Documented by: [id number] Titration: 07/08/18 22:15 Dose: 9.67 mcg/kg/min, 10 mls/hr Documented by: [id number] Admin: 07/08/18 22:13 Dose: 28.91 mcg/kg/min, 29.9 mls/hr Documented by: [id number] Cosigned by: [id number] Titration: 07/08/18 22:13 Dose: 28.91 mcg/kg/min, 29.9 mls/hr Documented by: [id number] Cosigned by: [id number] Titration: 07/08/18 19:07 Dose: 28.91 mcg/kg/min, 29.9 mls/hr Documented by: [id number] Cosigned by: [id number] Admin: 07/08/18 18:42 Dose: 5 mcg/kg/min, 5.2 mls/hr Documented by: [id number] Cosigned by: [id number] Heparin Sodium/Dextrose (Heparin Sodium/Dextrose) 25,000 units in 500 mls @ 43 mls/hr IV .[id number] [facility]; Protocol Stop: 08/07/18 17:59 Last Admin: 07/09/18 07:23 Dose: 2,150 units/hr, 43 mls/hr Documented by: [id number] Cosigned by: [id number] Titration: 07/09/18 07:23 Dose: 2,150 units/hr, 43 mls/hr Documented by: [id number] Cosigned by: [id number] Admin: 07/08/18 20:13 Dose: 2,150 units/hr, 43 mls/hr Documented by: [id number] Cosigned by: [id number] Pantoprazole Sodium 40 mg/ (Syringe) 10 mls @ 5 mls/min IV BID [facility] Stop: 08/07/18 20:59 Last Admin: 07/09/18 07:31 Dose: 5 mls/min Documented by: [id number] Admin: 07/08/18 20:25 Dose: 5 mls/min Documented by: [id number] Vancomycin HCl 2,500 mg/ (Sodium Chloride) 550 mls @ 200 mls/hr IV Q12H [facility] Stop: 07/16/18 05:59 Last Admin: 07/09/18 07:22 Dose: 200 mls/hr Documented by: [id number] Amiodarone HCl/Dextrose (Nexterone / D5w) 360 mg in 200 mls @ 16.667 mls/hr IV .Q12H [facility] Stop: 07/09/18 23:00 Last Admin: 07/09/18 05:08 Dose: 0.5 mg/min, 16.7 mls/hr Documented by: [id number] Cosigned by: [id number] Dextrose/Sodium Chloride (D5w And Nss) 1,000 mls @ 150 mls/hr IV .Q6H40M [facility] Stop: 08/08/18 00:14 Last Infusion: 07/09/18 09:31 Dose: 150 mls/hr Documented by: [id number] Admin: 07/09/18 06:14 Dose: 200 mls/hr Documented by: [id number] Infusion: 07/09/18 06:14 Dose: 150 mls/hr Documented by: [id number] Admin: 07/09/18 00:47 Dose: 150 mls/hr Documented by: [id number] Discontinued Medications Amiodarone HCl/Dextrose (Nexterone / D5w) Confirm Administered Dose 360 mg IV .ST-MED ONE Stop: 07/08/18 22:45 Last Admin: 07/08/18 23:01 Dose: Not Given Documented by: [id number] Dextrose (Dextrose 50%) Confirm Administered Dose 50 ml IV .STK-MED ONE Stop: 07/08/18 16:17 Last Admin: 07/08/18 15:55 Dose: 50 ml Documented by: [id number] Fentanyl Citrate (Fentanyl Drip) Confirm Administered Dose 1,250 mcg IV .STK-MED ONE Stop: 07/08/18 15:58 Last Admin: 07/08/18 16:00 Dose: 50 mcg Documented by: [id number] Furosemide (Lasix) Confirm Administered Dose 10 mg IV .STK-MED ONE Stop: 07/08/18 16:34 Last Admin: 07/08/18 17:09 Dose: Not Given Documented by: [id number] Furosemide 80 mg/ Syringe 8 mls @ 4 mls/min IV ONCE ONE Stop: 07/08/18 16:35 Last Admin: 07/08/18 15:40 Dose: 4 mls/min Documented by: [id number] Cisatracurium Besylate 40 mg/ (Sodium Chloride) 100 mls @ 0 mls/hr IV .Q0M [facility]; Protocol Stop: 08/07/18 17:59 Last Titration: 07/09/18 08:29 Dose: 0 mcg/kg/min, 0 mls/hr Documented by: [id number] Admin: 07/09/18 07:31 Dose: Not Given Documented by: [id number] Titration: 07/09/18 05:10 Dose: 0 mcg/kg/min, 0 mls/hr Documented by: [id number] Admin: 07/09/18 03:14 Dose: 1 mcg/kg/min, 25.9 mls/hr Documented by: [id number] Cosigned by: [id number] Titration: 07/09/18 02:18 Dose: 1 mcg/kg/min, 25.9 mls/hr Documented by: [id number] Cosigned by: [id number] Titration: 07/08/18 22:31 Dose: 1 mcg/kg/min, 25.9 mls/hr Documented by: [id number] Admin: 07/08/18 22:20 Dose: 0.48 mcg/kg/min, 12.5 mls/hr Documented by: [id number] Cosigned by: [id number] Titration: 07/08/18 22:20 Dose: 0.96 mcg/kg/min, 24.9 mls/hr Documented by: [id number] Cosigned by: [id number] Titration: 07/08/18 19:07 Dose: 0.96 mcg/kg/min, 24.9 mls/hr Documented by: [id number] Cosigned by: [id number] Admin: 07/08/18 18:31 Dose: 1 mcg/kg/min, 25.9 mls/hr Documented by: [id number] Cosigned by: [id number] Vancomycin HCl 2,750 mg/ (Sodium Chloride) 555 mls @ 200 mls/hr IV NOW ONE Stop: 07/08/18 20:46 Last Infusion: 07/08/18 21:18 Dose: 0 mls/hr Documented by: [id number] Admin: 07/08/18 18:31 Dose: 200 mls/hr Documented by: [id number] Piperacillin Sod/Tazobactam (Sod 4.5 gm/ Dextrose) 120 mls @ 240 mls/hr IV NOW ONE Stop: 07/08/18 18:29 Last Infusion: 07/08/18 19:05 Dose: 0 mls/hr Documented by: [id number] Admin: 07/08/18 18:31 Dose: 240 mls/hr Documented by: [id number] Sodium Chloride (Nss 1000ml) 1,000 mls @ 150 mls/hr IV .Q6H40M [facility] Stop: 08/07/18 19:14 Last Infusion: 07/09/18 00:27 Dose: 0 mls/hr Documented by: [id number] Admin: 07/08/18 20:27 Dose: 150 mls/hr Documented by: [id number] Norepinephrine Bitartrate 8 mg (/ Dextrose) 508 mls @ 32.84 mls/hr IV .[id number] [facility]; Protocol Stop: 08/07/18 19:57 Last Admin: 07/09/18 07:21 Dose: Not Given Documented by: [id number] Piperacillin Sod/Tazobactam (Sod 4.5 gm/ Dextrose) 120 mls @ 30 mls/hr IV Q8H [facility]; Protocol Stop: 07/16/18 00:00 Last Admin: 07/09/18 07:30 Dose: 30 mls/hr Documented by: [id number] Infusion: 07/09/18 03:15 Dose: 0 mls/hr Documented by: [id number] Admin: 07/08/18 23:42 Dose: 30 mls/hr Documented by: [id number] Amiodarone HCl/Dextrose (Nexterone / D5w) 150 mg in 100 mls @ 600 mls/hr IV ONE STA Stop: 07/08/18 22:51 Last Infusion: 07/08/18 23:14 Dose: 0 mls/hr Documented by: [id number] Cosigned by: [id number] Admin: 07/08/18 22:56 Dose: 600 mls/hr Documented by: [id number] Cosigned by: [id number] Amiodarone HCl/Dextrose (Nexterone / D5w) 360 mg in 200 mls @ 33.333 mls/hr IV .Q6H [facility] Stop: 07/09/18 04:44 Last Infusion: 07/09/18 05:24 Dose: 0 mg/min, 0 mls/hr Documented by: [id number] Cosigned by: [id number] Admin: 07/08/18 23:00 Dose: 1 mg/min, 33.3 mls/hr Documented by: [id number] Cosigned by: [id number] Potassium Chloride (K Benigno / Wtr) 10 meq in 100 mls @ 100 mls/hr IV ONE ONE Stop: 07/08/18 23:43 Last Infusion: 07/08/18 23:55 Dose: 0 mls/hr Documented by: [id number] Admin: 07/08/18 22:59 Dose: 100 mls/hr Documented by: [id number] Calcium Gluconate 1,000 mg/ (Sodium Chloride) 60 mls @ 240 mls/hr IV NOW STA Stop: 07/08/18 22:58 Last Infusion: 07/08/18 23:14 Dose: 0 mls/hr Documented by: [id number] Admin: 07/08/18 22:56 Dose: 240 mls/hr Documented by: [id number] Magnesium Sulfate/Dextrose (Magnesium Sulfate / D5w) 1 gm in 100 mls @ 100 mls/hr IV ONE ONE Stop: 07/08/18 23:43 Last Infusion: 07/08/18 23:55 Dose: 0 mls/hr Documented by: [id number] Admin: 07/08/18 22:54 Dose: 100 mls/hr Documented by: [id number] Nitroglycerin/Dextrose (Nitroglycerin/D5w 100 Mcg/Ml) Confirm Administered Dose 25 mg .ROUTE .STK-MED ONE Stop: 07/08/18 15:54 Last Admin: 07/08/18 15:57 Dose: 30 ml Documented by: [id number] Cosigned by: [id number] Perflutren Lipid Microsphere (Definity) 2 ml IV ONCE ONE Stop: 07/08/18 19:03 Last Admin: 07/08/18 19:02 Dose: 2 ml Documented by: [id number] Propofol (Diprivan) Confirm Administered Dose 1,000 mg IV .STK-MED ONE Stop: 07/08/18 15:57 Last Admin: 07/08/18 16:26 Dose: 1,000 mg Documented by: [id number] Cosigned by: [id number] Vecuronium [place] (Norcuron) Confirm Administered Dose 10 mg .ROUTE .STK-MED ONE Stop: 07/08/18 15:26 Last Admin: 07/08/18 15:40 Dose: 10 mg Documented by: [id number] Cosigned by: [id number] Description This is a 21 electrode EEG with a single channel dedicated to limited EKG. The electrodes were placed in accordance with the International 10-20 system. This study was severely technically limited due to diffuse muscle and electrode artifact. At the start of the study the patient was unresponsive. Background was mostly difficult to assess due to diffuse muscle and electrode artifact. There was periods of time where 5-6 Hz theta frequency could be seen mostly over the right hemisphere. Background is poorly organized with no anterior to posterior gradient. Symmetry could not be adequately assessed due to artifact. Unclear if there is any reactivity due to technical limitations and artifact. No state changes. Interpretation This is an abnormal, extremely technically limited, EEG secondary to moderate diffuse background disorganization and slowing. No epileptiform discharges or electrographic seizures were seen. Clinical Correlation This EEG indicates moderate encephalopathy of nonspecific etiology. This EEG had severe technical limitations due to diffuse movement and electrode artifact.
[2018-07-09] MEDS: POTASSIUM ACETATE 20 MEQ in 0.9 % SODIUM CHLORIDE 100 ML IV SCH ×2 (09:58→11:35)
--- NOTE | 2018-07-09 10:04 | Neurology Consultation ---
Date of Consultation July 09, 2018 Assessment & Plan (1) Anoxic encephalopathy: Severe anoxic encephalopathy with signs of cerebral edema on CT of the head. EEG completed this morning to exclude seizure activity. Will make further recommendations pending review of the EEG. Prognosis seems poor. (2) Stroke: In addition to signs of anoxic cerebral edema, the CT of the head also suggests several acute appearing infarcts within the left cerebral hemisphere. The infarct within the left parietal lobe is actually at the parieto-occipital junction and may be of the watershed type possibly due to impaired cerebral perfusion due to cerebral edema. Vertebrobasilar, left WAVE SOLDER OFFBEARER, or posterior branch left MCA thrombosis not excluded. I would recommend obtaining a CT angiogram of the head and neck for further assessment. Discussed with bullet charging machine operator, Dr. Corley. History of Present Illness Reason for Consultation: Status post cardiac arrest, unresponsive, EEG evaluation Requesting Physician: MARLENY Lares Attending Physician: Todd Cobb MD History of Present Illness The patient is a 23-year-old male who was transferred from an outside hospital are July 08, 2018 for further evaluation and management of a critical illness. According to admission records, he was found unresponsive, lying in bed around 9:00 a.m. his girlfriend indicated that he was unresponsive and not breathing. EMS was summoned. At the time of arrival at [facility] he was asystolic. There was some concern about a possible overdose. He received both Narcan and flumazenil. The patient remains unresponsive on life support. He has been diagnosed with cardiac arrest and acute respiratory failure. Additional medical complications include sepsis, acute kidney failure, and bilateral pneumonia. The reason for this patient's acute illness is not entirely clear. He had been feeling on well for 2-3 days prior to his acute presentation. The patient is unable to give any details pertaining to his present illness as he is unresponsive on life support. He has not had any observed convulsions or seizure-like activity. Allergies Allergy/AdvReac Type Severity Reaction Status Date / Time Unable to Assess Allergy Verified 07/08/18 16:41 Patient History Medical History Anxiety Chronic steroid use Depression Family history of reaction to anesthesia History of abscess of skin and subcutaneous tissue 2015 -this required multiple incision and drainage procedures at [facility]; location - groin Marijuana use Morbid obesity with BMI of 45.0-49.9, adult Snoring Tobacco use Surgical History History of arthroscopy History of incision and drainage Groin abscess, 2016 History of lumbar surgery Family History Mother History of MTHFR mutation Pulmonary embolism Deep vein thrombosis Father Hypertension Other Lupus anticoagulant disorder Social History Preferred Language: Argentine Communication Ability: Unable Beliefs That Will Affect Care: None marital status: Single Current Living Situation: Significant Other Current Living Situation Comment: Lives in [place] with significant other current occupational status: employed current occupation: Works as a camp specialist at a [employer] Other Information That Helps Us Care for You: No Feels Safe at Home: Yes Safety Concerns: Feels Safe At This Time Smoking Status: Current some day smoker Hx Alcohol Use: Yes Hx Substance Use: Yes Review of Systems A review of systems cannot be obtained as the patient is unresponsive Physical Exam Vital Signs (Past 24 Hours): Last Vital Signs Temp 33.2 C L 07/09/18 09:00 Pulse 61 07/09/18 09:00 Resp 26 H 07/09/18 09:00 BP 137/87 07/09/18 09:00 Pulse Ox 98 07/09/18 09:00 Physical Exam: The patient is a well-developed, obese young male. He is unresponsive on life support in the intensive care unit. He does not open his eyes or localize to noxious stimulation. He does withdrawal both lower limbs to plantar stimulation. Testing of orientation and other higher integrated functions cannot be performed. Pupils are about 3 mm in size, round, and minimally reactive to light. There is no gaze preference or nystagmus. Oculocephalic reflexes and blink reflexes cannot be elicited. A gag reflex cannot be elicited. Sensation cannot be tested. Deep tendon reflexes are diffusely diminished. Plantar responses withdrawal, as indicated above. Testing of coordination cannot be completed. Direct ophthalmoscopic examination reveals normal-appearing optic nerves and posterior segments. Carotid pulses normal bilaterally, no bruits to auscultation. Gait and station cannot be tested. Muscle strength cannot be tested. Tone slightly increased throughout. No atrophy. No abnormal movements observed. No posturing type movements observed. Results & Data Laboratory Results WBC 20.65, hemoglobin 18.1, platelet 196, sodium 138, BUN 22, creatinine 1.60, glucose 152, magnesium 1.8, AST 912, ALT 362, troponin 49.[address] of the head completed yesterday reveals an acute infarct within the left parietal lobe, at the occipital junction, measuring about 4.3 x 2.5 cm. There is another small infarct within the left basal ganglia measuring 1.2 cm. There is partial effacement of the basilar cisterns with loss of the porter-white junction suggestive of cerebral edema due to hypoxic anoxic brain injury. I reviewed the images as well as the radiologist's interpretation of this test and agree. There is no evidence of hemorrhage. Electrocardiogram reveals a normal sinus rhythm, 66 beats per minute.
[2018-07-09] MEDS: MAGNESIUM SULFATE / D5W 1 GM/100 ML BAG IV SCH ×2 (10:12→11:02)
[2018-07-09 10:18] LABS: Estimated Average Glucose 108 mg/dl; Hemoglobin A1C 5.4 % (4.5-5.6)
[2018-07-09 10:31] LABS: Basophils # (auto) 0.01 K/uL (0-0.2); Basophils % (auto) 0.1 %; Hematocrit (blood only) 43.4 % (42-52); Hemoglobin 14.7 g/dL (14.0-18.0); Immature Granulocytes # (auto) 0.06 K/uL (0.00-0.02); Immature Granulocytes % (auto) 0.4 %; Lymphocytes # (auto) 1.63 K/uL (1.2-3.4); Lymphocytes % (auto) 10.3 %; Mean Corpuscular Hgb Conc 33.9 g/dL (32-36); Mean Corpuscular Volume 91.2 fL (80-100); Mean Platelet Volume 10.1 fL (7.4-10.4); Monocytes # (auto) 0.67 K/uL (0.11-0.59); Monocytes % (auto) 4.2 %; Neutrophils # (auto) 13.46 K/uL (1.4-6.5); Platelet Count 173 K/uL (130-400); RDW Coefficient of Variation 14.2 % (11.5-14.5); RDW Standard Deviation 47.2 fL (36.4-46.3); Red Blood Count 4.76 M/uL (4.7-6.1); White Blood Count 15.83 K/uL (4.8-10.8)
[2018-07-09 10:46] LABS: Follicle Stimulating Hormone < 0.30 IU/L; Luteinizing Hormone < 0.07 IU/L; Testosterone 416.8 ng/dl
[2018-07-09 10:55] LABS: Hepatitis B Surface Antigen Neg (Neg)
[2018-07-09] MEDS ORDERED: PANTOprazole 40 MG in SYRINGE 0 ML IV SCH (11:00)
[2018-07-09 11:29] LABS: Hepatitis C IgG 13Yrs+Old_Rflx Neg (Neg)
[2018-07-09 11:35] LABS: Amphetamines+Metham, Urine Neg (Neg); Barbiturates, Urine Neg (Neg); Benzodiazepine, Urine Neg (Neg); Cocaine, Urine Neg (Neg); MDMA (Ecstacy), Urine Neg (Neg); Methadone, Urine Neg (Neg); Opiate, Urine Neg (Neg); Phencyclidine, Urine Neg (Neg)
[2018-07-09 11:35] LABS: Calcium < 5.0 mg/dl (8.5-10.1)
[2018-07-09 11:36] LABS: BUN Creatinine Ratio 15.5 (10-20); Blood Urea Nitrogen 15 mg/dl (7-18); Carbon Dioxide 18 mmol/L (21-32); Chloride 120 mmol/L (98-107); Creatinine Clr Calc Pharmacy 205.1 ml/min; Glucose 99 mg/dl (70-99); Phosphorus 1.9 mg/dl (2.5-4.9); Potassium 2.4 mmol/L (3.5-5.1); T4 Free Thyroxine 1.02 ng/dl (0.8-1.6)
[2018-07-09 12:08] LABS: iSTAT Arterial Blood Gas HCO3 25 meg/L (19-24); iSTAT Arterial Blood Gas pCO2 43 mmHg (35-46); iSTAT Arterial Blood Gas pH 7.36 (7.35-7.45); iSTAT Carbon Dioxide 27 mEq/l (24-31); iSTAT Site Art Line
[2018-07-09 12:21] LABS: Sodium 146 mmol/L (136-145)
[2018-07-09 12:30] LABS: Basophils # (auto) 0.01 K/uL (0-0.2); Basophils % (auto) 0.1 %; Eosinophils # (auto) 0.01 K/uL (0-0.5); Eosinophils % (auto) 0.1 %; Hematocrit (blood only) 49.3 % (42-52); Hemoglobin 16.7 g/dL (14.0-18.0); Immature Granulocytes # (auto) 0.07 K/uL (0.00-0.02); Immature Granulocytes % (auto) 0.4 %; Lymphocytes # (auto) 1.98 K/uL (1.2-3.4); Lymphocytes % (auto) 11.5 %; Mean Corpuscular Hgb Conc 33.9 g/dL (32-36); Mean Corpuscular Volume 91.3 fL (80-100); Mean Platelet Volume 9.9 fL (7.4-10.4); Monocytes # (auto) 0.71 K/uL (0.11-0.59); Monocytes % (auto) 4.1 %; Neutrophils # (auto) 14.46 K/uL (1.4-6.5); Neutrophils % (auto) 83.8 %; Platelet Count 179 K/uL (130-400); RDW Coefficient of Variation 14.3 % (11.5-14.5); RDW Standard Deviation 47.6 fL (36.4-46.3); White Blood Count 17.24 K/uL (4.8-10.8)
[2018-07-09 12:38] LABS: Creatine Kinase 20922 U/L (39-308)
[2018-07-09 13:04] LABS: BUN Creatinine Ratio 11.7 (10-20); Calcium 6.6 mg/dl (8.5-10.1); Creatinine Clr Calc Pharmacy 119.7 ml/min; Est GFR (African American) 68.3; Magnesium 2.4 mg/dl (1.8-2.4); Phosphorus 2.8 mg/dl (2.5-4.9)
[2018-07-09 13:11] LABS: Potassium 3.6 mmol/L (3.5-5.1)
[2018-07-09] MEDS ORDERED: FUROSEMIDE 40 MG/4 ML VIAL IV STA (14:02)
--- NOTE | 2018-07-09 14:33 | Procedure Note ---
Procedure Note: Bronchoscopy Procedure Procedure date: July 09, 2018 Procedure: fiberoptic bronchoscopy Pre-procedure indication: Acute hypoxic respiratory failure, pulmonary infiltrate Post-procedure Diagnosis: same as above Prior to Procedure: Informed Consent: The risks, benefits, indications, potential complications, and alternatives were explained to the patient's family and informed consent obtained. Attending Staff: Fer Corley DO Resident/APC: Wilder FARMER Skin Prep: Not applicable Anesthesia: Continuous infusion of propofol The identity of the patient was confirmed and a bedside time out was performed. Description of Procedure: Fiberoptic bronchoscopy was performed via endotracheal tube. Bronchioalveolar lavage right lower lobe was performed. Findings included: Significant purulence noted in the right lower lobes as well as right middle lobes this cleared with lavage. Mild thin mucus in the left lower lobe. No significant evidence of hyperemia. Complications: None Specimens: Bronchial washings sent for culture and Gram stain, cytology, fungal elements, and AFB stain and culture. Estimated blood loss: Zero
[2018-07-09] MEDS ORDERED: PEPTAMEN INTENSE VHP 1.0 CAL 1,000 ML BAG OG SCH (15:00)
[2018-07-09 15:22] LABS: Appearance Urine Turbid (Clear); Bacteria Urine Automated Negative (Negative); Bilirubin Urine Negative (Negative); Blood Urine 3+ (Negative); Color Urine Yellow; Epithelial Cell Urine Auto >30 /lpf (0-5); Glucose Urine UA Negative (Negative); Ketones Urine Negative (Negative); Leukocyte Esterase Urine 1+ (Negative); Nitrite Urine Negative (Negative); Protein Urine 1+ (Negative); RBC Urine Automated >30 /hpf (0-4); Specific Gravity Urine 1.025 (1.000-1.030); Urobilinogen Urine Negative (Negative)
[2018-07-09 15:36] LABS: Basophils # (auto) 0.01 K/uL (0-0.2); Basophils % (auto) 0.1 %; Eosinophils # (auto) 0.01 K/uL (0-0.5); Eosinophils % (auto) 0.1 %; Hemoglobin 17.1 g/dL (14.0-18.0); Immature Granulocytes # (auto) 0.13 K/uL (0.00-0.02); Immature Granulocytes % (auto) 0.7 %; Lymphocytes # (auto) 1.64 K/uL (1.2-3.4); Lymphocytes % (auto) 8.8 %; Mean Corpuscular Hgb Conc 34.2 g/dL (32-36); Mean Corpuscular Volume 90.6 fL (80-100); Monocytes # (auto) 1.14 K/uL (0.11-0.59); Monocytes % (auto) 6.1 %; Neutrophils # (auto) 15.71 K/uL (1.4-6.5); Neutrophils % (auto) 84.2 %; Platelet Count 189 K/uL (130-400); RDW Coefficient of Variation 14.1 % (11.5-14.5); RDW Standard Deviation 46.7 fL (36.4-46.3); Red Blood Count 5.52 M/uL (4.7-6.1); White Blood Count 18.64 K/uL (4.8-10.8)
[2018-07-09 16:00] LABS: iSTAT Allen Test Pass; iSTAT Arterial Blood Gas HCO3 26 meg/L (19-24); iSTAT Arterial Blood Gas pCO2 38 mmHg (35-46); iSTAT Arterial Blood Gas pH 7.42 (7.35-7.45); iSTAT Carbon Dioxide 27 mEq/l (24-31); iSTAT Site Art Line
[2018-07-09] MEDS ORDERED: CEFEPIME 2,000 MG in SYRINGE 0 ML IV SCH (16:00)
--- NOTE | 2018-07-09 16:11 | Family Medicine Progress Note ---
Date of Service July 09, 2018 Assessment & Plan (1) Cardiac arrest: Mr. Gamez is a 23 year old male with a history of anabolic steroid abuse who was transferred from [facility] after achieving ROSC after a cardiac arrest requiring ~25 minutes of resuscitation. He was admitted to the ICU, and is intubated and mechanically ventilated. -s/p cardiac arrest w/ROSC -troponin peaked and are downtrending -pt had episodes of vtach -> amiodarone drip started -therapeutic hypothermia initiated -cardiology consulted -> unlikely to be secondary to STEMI, likely inciting event is hypoxia -> continue supportive management - no need for coronary angiography at this point CVA -CT brain shows edema & multiple infarcts in left parietal lobe and basal ganglia -> likely secondary to decreased cerebral perfusion -neurology consulted -> recommended obtaining a CTA of head and neck to further investigate -?venous sinus thrombosis -> started on heparin drip - EEG performed - no evidence of elipitiform activity Acute Respiratory Failure -remains intubated and mechanically ventilated, management per ICU -secondary to right sided pneumonia and possibly PE (pt has family hx of DVT) -heparin drip initiated Bilateral pneumonia -bcx pending -on cefepime. Vancomycin discontinued secondary to negative MRSA swab -bronchoscopy performed today - cx pending Transaminitis -LFTs elevated - AST 912 and ALT 362 -likely secondary to ischemic hepatitis -viral panel ordered, as well as ammonia CHELSEY -BUN 22 and creatinine 1.6 -IVF management per ICU -young in place - urine output improving, continue to monitor Elevated CPK -likely secondary to rhabdo -continue IVF and monitor, may require bicarb infusion Erythrocytosis -possibly secondary to anabolic steroid abuse. Risk factor for DVT/PE -follow AM hormone labs Code status: FULL DVT Prophylaxis: on heparin drip Disposition: remains in ICU. Poor prognosis (2) Stroke: (3) Acute respiratory failure with hypoxia and hypercarbia: (4) Bilateral pneumonia: (5) Shock liver: (6) Polycythemia: (7) Morbid obesity with BMI of 45.0-49.9, adult: (8) Acute kidney failure: (9) NSTEMI (non-ST elevated myocardial infarction): Supervising Physician Co-Signing Physician Notes Attending attestation Pt seen and examined in concert with Dr. Acevedo. In agreement with the documented findings as noted in the resident documentation with any exceptions or additions as noted here. On ventilator, no family present at time of evaluation. On examination, S1/S2, though distant. Breath sounds rhonchorous on ventilator. 23 y/o male h/o anabolic steroid use, tobacco use, FHx of coagulopathy admitted to ICU following witnessed cardiac arrest in [facility] ARDS w/ hypoxic ventilator dependant respiratory failure - bronchoscopy completed today. Ventilator management per ICU team Cardiac arrest w/ subsequent NSVT - cardiology consultation appreciated. Trend troponins. Echocardiogram reviewed. Amiodarone infusion ongoing Acute encephalopathy - neurology consultation appreciated - CT head w/ concern for edema and CVA Acute kidney injury - continue IVF, monitor I/O through young - increased UOP per nursing in PM Elevated CPK - likely 2/2 rhabdomyolysis - monitor, hydration as above PNA - concern for aspiration - continue cefepime and Zosyn, awaiting BCx. Follow up viral panel Shock liver - transaminitis in the setting of cardiac arrest - monitor, feeds per ICU team ?Anabolic steroid use - follow hormone panel Addendum: Called to bedside for new findings of elevated CO2 on ABG and findings of increased ICP with midline shift and concern for impending herniation. Vent set tings updated and mannitol infusion initiated. Extended discussion with family regarding change in status, implications of changes and decision to further escalate care requiring transfer to tertiary center ([facility]). Family in agreement, ICU team to initiate transfer of patient to [facility] by [facility] stat. PPWK completed, transport en route. Subjective Unable to obtain hx due to patient being intubated and placed on ventilator. Physical Exam Vital Signs (Past 24 Hours): Last Vital Signs Temp 33.6 C L 07/09/18 15:00 Pulse 73 07/09/18 15:00 Resp 34 H 07/09/18 15:00 BP 179/101 H 07/09/18 15:00 Pulse Ox 95 07/09/18 15:00 Constitutional: + morbidly obese and + mechanically ventilated Respiratory: Auscultation: + diminished lung sounds coarse breath sounds over right lung Cardiovascular: RRR, no murmur, no edema Vessels: radial pulses present Gastrointestinal (Abdomen): Percussion/Palpation: abdomen soft; abdomen nontender Results & Data Laboratory Results Laboratory Results - last 24 hr 07/08/18 07/08/18 07/08/18 15:55 16:00 16:00 WBC RBC Hgb Hct MCV MCH MCHC 33.6 RDW Std Deviation RDW Coeff of [place]axa Plt Count MPV Immature Gran % (Auto) 2.6 Neut % (Auto) 87.1 Lymph % (Auto) 5.6 [place] % (Auto) 4.6 Eos % (Auto) 0.0 Baso % (Auto) 0.1 Immature Gran # (Auto) 0.70 H Neut # (Auto) 23.78 H Lymph # (Auto) 1.53 [place] # (Auto) 1.27 H Eos # (Auto) 0.01 Baso # (Auto) 0.03 PT INR APTT PTT Ratio Sample Site POC pH POC pCO2 POC pO2 POC HCO3 POC Total CO2 POC Base Excess POC ABG O2 Sat Eris Test O2 Delivery Device POC O2 Rate Minute Ventilation POC FiO2 Tidal Volume PEEP Sodium 142 Potassium 5.7 H Chloride 107 Carbon Dioxide 27 Anion Gap 8.0 BUN 21 H Creatinine 2.39 H Est Cr Clr Drug Dosing 80.7 Est GFR ( Amer) 42.4 Est GFR (Non-Af Amer) 36.6 BUN/Creatinine Ratio 8.6 L Glucose 175 H POC Glucose 74 POC Glucose (other) Estimat Average Glucose Hemoglobin A1c Lactate Calcium 6.6 L Phosphorus 5.8 H Magnesium 1.9 Total Bilirubin 0.5 Direct Bilirubin AST 842 H ALT 339 H Alkaline Phosphatase 41 L Total Creatine Kinase CK-MM (CK-3) CK-MB (CK-2) CK-BB (CK-1) Creatine Kinase Interp Troponin I 99.300 H* Total Protein 6.9 Albumin 3.1 L Globulin 3.8 Albumin/Globulin Ratio 0.8 L Lipase 642 H TSH 0.954 Free T4 Free T3 FSH Luteinizing Hormone Testosterone Level Specimen Hemolysis Urine Color Urine Appearance Urine pH Ur Specific Leigh Urine Protein Urine Glucose (UA) Urine Ketones Urine Blood Urine Nitrite Urine Bilirubin Urine Urobilinogen Ur Leukocyte Esterase Urine WBC (Auto) Urine RBC (Auto) U Hyaline Cast (Auto) U Epithel Cells (Auto) Urine Bacteria (Auto) Granular Casts Nasal Screen MRSA (PCR) Urine Opiates Screen Ur Methadone, Qual Urine Barbiturates Ur Phencyclidine (PCP) U Amphetamin/Meth Scrn MDMA (Ecstasy) Screen U Benzodiazepines Scrn Ur Cocaine Metabolite U Marijuana (THC) Screen Hep Bs Antigen Hepatitis C Antibody Influenza Type A (PCR) Influenza Type B (PCR) Blood Type Antibody Screen 07/08/18 07/08/18 07/08/18 16:00 16:53 16:53 WBC RBC Hgb Hct MCV MCH MCHC RDW Std Deviation RDW Coeff of [place]ax[place] Plt Count MPV Immature Gran % (Auto) Neut % (Auto) Lymph % (Auto) [place] % (Auto) Eos % (Auto) Baso % (Auto) Immature Gran # (Auto) Neut # (Auto) Lymph # (Auto) [place] # (Auto) Eos # (Auto) Baso # (Auto) PT 11.9 INR 1.2 H APTT 21.8 PTT Ratio 0.8 Sample Site POC pH POC pCO2 POC pO2 POC HCO3 POC Total CO2 POC Base Excess POC ABG O2 Sat Eris Test O2 Delivery Device POC O2 Rate Minute Ventilation POC FiO2 Tidal Volume PEEP Sodium Potassium Chloride Carbon Dioxide Anion Gap BUN Creatinine Est Cr Clr Drug Dosing Est GFR ( Amer) Est GFR (Non-Af Amer) BUN/Creatinine Ratio Glucose POC Glucose POC Glucose (other) Estimat Average Glucose Hemoglobin A1c Lactate 2.6 H* Calcium Phosphorus Magnesium Total Bilirubin Direct Bilirubin AST ALT Alkaline Phosphatase Total Creatine Kinase CK-MM (CK-3) CK-MB (CK-2) CK-BB (CK-1) Creatine Kinase Interp Troponin I Total Protein Albumin Globulin Albumin/Globulin Ratio Lipase TSH Free T4 Free T3 FSH Luteinizing Hormone Testosterone Level Specimen Hemolysis Urine Color Urine Appearance Urine pH Ur Specific Leigh Urine Protein Urine Glucose (UA) Urine Ketones Urine Blood Urine Nitrite Urine Bilirubin Urine Urobilinogen Ur Leukocyte Esterase Urine WBC (Auto) Urine RBC (Auto) U Hyaline Cast (Auto) U Epithel Cells (Auto) Urine Bacteria (Auto) Granular Casts Nasal Screen MRSA (PCR) Urine Opiates Screen Ur Methadone, Qual Urine Barbiturates Ur Phencyclidine (PCP) U Amphetamin/Meth Scrn MDMA (Ecstasy) Screen U Benzodiazepines Scrn Ur Cocaine Metabolite U Marijuana (THC) Screen Hep Bs Antigen Hepatitis C Antibody Influenza Type A (PCR) Influenza Type B (PCR) Blood Type Antibody Screen 07/08/18 07/08/18 07/08/18 17:28 17:33 17:46 WBC RBC Hgb Hct MCV MCH MCHC RDW Std Deviation RDW Coeff of [place]ax[place] Plt Count MPV Immature Gran % (Auto) Neut % (Auto) Lymph % (Auto) [place] % (Auto) Eos % (Auto) Baso % (Auto) Immature Gran # (Auto) Neut # (Auto) Lymph # (Auto) [place] # (Auto) Eos # (Auto) Baso # (Auto) PT INR APTT PTT Ratio Sample Site Art Line POC pH 7.24 L POC pCO2 66 H POC pO2 72 L POC HCO3 28 H POC Total CO2 30 POC Base Excess 1.0 POC ABG O2 Sat 90.0 Eris Test NA O2 Delivery Device Ventilator POC O2 Rate 24 Minute Ventilation POC FiO2 10 Tidal Volume PEEP 8 Sodium Potassium Chloride Carbon Dioxide Anion Gap BUN Creatinine Est Cr Clr Drug Dosing Est GFR ( Amer) Est GFR (Non-Af Amer) BUN/Creatinine Ratio Glucose POC Glucose 125 H POC Glucose (other) Estimat Average Glucose Hemoglobin A1c Lactate Calcium Phosphorus Magnesium Total Bilirubin Direct Bilirubin AST ALT Alkaline Phosphatase Total Creatine Kinase 10397 H CK-MM (CK-3) CK-MB (CK-2) CK-BB (CK-1) Creatine Kinase Interp Troponin I 111.000 H* Total Protein Albumin Globulin Albumin/Globulin Ratio Lipase TSH Free T4 Free T3 FSH Luteinizing Hormone Testosterone Level Specimen Hemolysis Urine Color Urine Appearance Urine pH Ur Specific Leigh Urine Protein Urine Glucose (UA) Urine Ketones Urine Blood Urine Nitrite Urine Bilirubin Urine Urobilinogen Ur Leukocyte Esterase Urine WBC (Auto) Urine RBC (Auto) U Hyaline Cast (Auto) U Epithel Cells (Auto) Urine Bacteria (Auto) Granular Casts Nasal Screen MRSA (PCR) Urine Opiates Screen Ur Methadone, Qual Urine Barbiturates Ur Phencyclidine (PCP) U Amphetamin/Meth Scrn MDMA (Ecstasy) Screen U Benzodiazepines Scrn Ur Cocaine Metabolite U Marijuana (THC) Screen Hep Bs Antigen Hepatitis C Antibody Influenza Type A (PCR) Influenza Type B (PCR) Blood Type Antibody Screen 07/08/18 07/08/18 07/08/18 18:20 20:00 20:09 WBC RBC Hgb Hct MCV MCH MCHC RDW Std Deviation RDW Coeff of [place]ax[place] Plt Count MPV Immature Gran % (Auto) Neut % (Auto) Lymph % (Auto) [place] % (Auto) Eos % (Auto) Baso % (Auto) Immature Gran # (Auto) Neut # (Auto) Lymph # (Auto) [place] # (Auto) Eos # (Auto) Baso # (Auto) PT INR APTT PTT Ratio Sample Site POC pH POC pCO2 POC pO2 POC HCO3 POC Total CO2 POC Base Excess POC ABG O2 Sat Eris Test O2 Delivery Device POC O2 Rate Minute Ventilation POC FiO2 Tidal Volume PEEP Sodium Potassium Chloride Carbon Dioxide Anion Gap BUN Creatinine Est Cr Clr Drug Dosing Est GFR ( Amer) Est GFR (Non-Af Amer) BUN/Creatinine Ratio Glucose POC Glucose 70 POC Glucose (other) Estimat Average Glucose Hemoglobin A1c Lactate Calcium Phosphorus Magnesium Total Bilirubin Direct Bilirubin AST ALT Alkaline Phosphatase Total Creatine Kinase CK-MM (CK-3) CK-MB (CK-2) CK-BB (CK-1) Creatine Kinase Interp Troponin I Total Protein Albumin Globulin Albumin/Globulin Ratio Lipase TSH Free T4 Free T3 FSH Luteinizing Hormone Testosterone Level Specimen Hemolysis Urine Color Urine Appearance Urine pH Ur Specific Leigh Urine Protein Urine Glucose (UA) Urine Ketones Urine Blood Urine Nitrite Urine Bilirubin Urine Urobilinogen Ur Leukocyte Esterase Urine WBC (Auto) Urine RBC (Auto) U Hyaline Cast (Auto) U Epithel Cells (Auto) Urine Bacteria (Auto) Granular Casts Nasal Screen MRSA (PCR) Negative Urine Opiates Screen Ur Methadone, Qual Urine Barbiturates Ur Phencyclidine (PCP) U Amphetamin/Meth Scrn MDMA (Ecstasy) Screen U Benzodiazepines Scrn Ur Cocaine Metabolite U Marijuana (THC) Screen Hep Bs Antigen Hepatitis C Antibody Influenza Type A (PCR) Neg for Influ A Influenza Type B (PCR) Neg for Influ B Blood Type Antibody Screen 07/08/18 07/08/18 07/08/18 21:01 21:52 21:52 WBC 23.54 H RBC 5.94 Hgb 18.4 H Hct 54.1 H MCV 91.1 MCH 31.0 MCHC 34.0 RDW Std Deviation 47.3 H RDW Coeff of Daxa 14.1 Plt Count 219 MPV 10.4 Immature Gran % (Auto) 0.9 Neut % (Auto) 86.7 Lymph % (Auto) 8.2 [place] % (Auto) 4.2 Eos % (Auto) 0.0 Baso % (Auto) 0.0 Immature Gran # (Auto) 0.21 H Neut # (Auto) 20.41 H Lymph # (Auto) 1.92 [place] # (Auto) 1.00 H Eos # (Auto) 0.00 Baso # (Auto) 0.00 PT INR APTT PTT Ratio Sample Site POC pH POC pCO2 POC pO2 POC HCO3 POC Total CO2 POC Base Excess POC ABG O2 Sat Eris Test O2 Delivery Device POC O2 Rate Minute Ventilation POC FiO2 Tidal Volume PEEP Sodium 141 Potassium 3.9 D Chloride 107 Carbon Dioxide 25 Anion Gap 10.0 BUN 23 H Creatinine 2.12 H Est Cr Clr Drug Dosing 90.9 Est GFR ( Amer) 49.0 Est GFR (Non-Af Amer) 42.3 BUN/Creatinine Ratio 10.9 Glucose 156 H POC Glucose 67 L* POC Glucose (other) Estimat Average Glucose Hemoglobin A1c Lactate Calcium 6.5 L Phosphorus 3.7 D Magnesium 1.5 L Total Bilirubin Direct Bilirubin AST ALT Alkaline Phosphatase Total Creatine Kinase CK-MM (CK-3) CK-MB (CK-2) CK-BB (CK-1) Creatine Kinase Interp Troponin I 72.200 H* Total Protein Albumin Globulin Albumin/Globulin Ratio Lipase TSH Free T4 Free T3 FSH Luteinizing Hormone Testosterone Level Specimen Hemolysis Urine Color Urine Appearance Urine pH Ur Specific Leigh Urine Protein Urine Glucose (UA) Urine Ketones Urine Blood Urine Nitrite Urine Bilirubin Urine Urobilinogen Ur Leukocyte Esterase Urine WBC (Auto) Urine RBC (Auto) U Hyaline Cast (Auto) U Epithel Cells (Auto) Urine Bacteria (Auto) Granular Casts Nasal Screen MRSA (PCR) Urine Opiates Screen Ur Methadone, Qual Urine Barbiturates Ur Phencyclidine (PCP) U Amphetamin/Meth Scrn MDMA (Ecstasy) Screen U Benzodiazepines Scrn Ur Cocaine Metabolite U Marijuana (THC) Screen Hep Bs Antigen Hepatitis C Antibody Influenza Type A (PCR) Influenza Type B (PCR) Blood Type Antibody Screen 07/08/18 07/08/18 07/08/18 21:52 22:09 22:44 WBC RBC Hgb Hct MCV MCH MCHC RDW Std Deviation RDW Coeff of [place]ax[place] Plt Count MPV Immature Gran % (Auto) Neut % (Auto) Lymph % (Auto) [place] % (Auto) Eos % (Auto) Baso % (Auto) Immature Gran # (Auto) Neut # (Auto) Lymph # (Auto) [place] # (Auto) Eos # (Auto) Baso # (Auto) PT INR APTT PTT Ratio Sample Site Art Line POC pH 7.39 POC pCO2 39 POC pO2 112 H POC HCO3 25 H POC Total CO2 26 POC Base Excess -1.0 POC ABG O2 Sat 99.0 H Eris Test Pass O2 Delivery Device Ventilator POC O2 Rate 24 Minute Ventilation POC FiO2 100 Tidal Volume PEEP 8 Sodium Potassium Chloride Carbon Dioxide Anion Gap BUN Creatinine Est Cr Clr Drug Dosing Est GFR ( Amer) Est GFR (Non-Af Amer) BUN/Creatinine Ratio Glucose POC Glucose 136 H POC Glucose (other) Estimat Average Glucose Hemoglobin A1c Lactate Calcium Phosphorus Magnesium Total Bilirubin Direct Bilirubin AST ALT Alkaline Phosphatase Total Creatine Kinase CK-MM (CK-3) CK-MB (CK-2) CK-BB (CK-1) Creatine Kinase Interp Troponin I Cancelled Total Protein Albumin Globulin Albumin/Globulin Ratio Lipase TSH Free T4 Free T3 FSH Luteinizing Hormone Testosterone Level Specimen Hemolysis Urine Color Urine Appearance Urine pH Ur Specific Leigh Urine Protein Urine Glucose (UA) Urine Ketones Urine Blood Urine Nitrite Urine Bilirubin Urine Urobilinogen Ur Leukocyte Esterase Urine WBC (Auto) Urine RBC (Auto) U Hyaline Cast (Auto) U Epithel Cells (Auto) Urine Bacteria (Auto) Granular Casts Nasal Screen MRSA (PCR) Urine Opiates Screen Ur Methadone, Qual Urine Barbiturates Ur Phencyclidine (PCP) U Amphetamin/Meth Scrn MDMA (Ecstasy) Screen U Benzodiazepines Scrn Ur Cocaine Metabolite U Marijuana (THC) Screen Hep Bs Antigen Hepatitis C Antibody Influenza Type A (PCR) Influenza Type B (PCR) Blood Type Antibody Screen 07/08/18 07/09/18 07/09/18 23:10 00:06 01:13 WBC RBC Hgb Hct MCV MCH MCHC RDW Std Deviation RDW Coeff of [place]ax[place] Plt Count MPV Immature Gran % (Auto) Neut % (Auto) Lymph % (Auto) [place] % (Auto) Eos % (Auto) Baso % (Auto) Immature Gran # (Auto) Neut # (Auto) Lymph # (Auto) [place] # (Auto) Eos # (Auto) Baso # (Auto) PT INR APTT PTT Ratio Sample Site POC pH POC pCO2 POC pO2 POC HCO3 POC Total CO2 POC Base Excess POC ABG O2 Sat Eris Test O2 Delivery Device POC O2 Rate Minute Ventilation POC FiO2 Tidal Volume PEEP Sodium Potassium Chloride Carbon Dioxide Anion Gap BUN Creatinine Est Cr Clr Drug Dosing Est GFR ( Amer) Est GFR (Non-Af Amer) BUN/Creatinine Ratio Glucose POC Glucose 105 H 92 134 H POC Glucose (other) Estimat Average Glucose Hemoglobin A1c Lactate Calcium Phosphorus Magnesium Total Bilirubin Direct Bilirubin AST ALT Alkaline Phosphatase Total Creatine Kinase CK-MM (CK-3) CK-MB (CK-2) CK-BB (CK-1) Creatine Kinase Interp Troponin I Total Protein Albumin Globulin Albumin/Globulin Ratio Lipase TSH Free T4 Free T3 FSH Luteinizing Hormone Testosterone Level Specimen Hemolysis Urine Color Urine Appearance Urine pH Ur Specific Leigh Urine Protein Urine Glucose (UA) Urine Ketones Urine Blood Urine Nitrite Urine Bilirubin Urine Urobilinogen Ur Leukocyte Esterase Urine WBC (Auto) Urine RBC (Auto) U Hyaline Cast (Auto) U Epithel Cells (Auto) Urine Bacteria (Auto) Granular Casts Nasal Screen MRSA (PCR) Urine Opiates Screen Ur Methadone, Qual Urine Barbiturates Ur Phencyclidine (PCP) U Amphetamin/Meth Scrn MDMA (Ecstasy) Screen U Benzodiazepines Scrn Ur Cocaine Metabolite U Marijuana (THC) Screen Hep Bs Antigen Hepatitis C Antibody Influenza Type A (PCR) Influenza Type B (PCR) Blood Type Antibody Screen 07/09/18 07/09/18 07/09/18 02:06 02:06 02:06 WBC 22.27 H RBC 5.88 Hgb 18.5 H Hct 53.4 H MCV 90.8 MCH 31.5 MCHC 34.6 RDW Std Deviation 46.9 H RDW Coeff of Daxa 14.1 Plt Count 201 MPV 10.0 Immature Gran % (Auto) 0.5 Neut % (Auto) 87.4 Lymph % (Auto) 8.1 [place] % (Auto) 4.0 Eos % (Auto) 0.0 Baso % (Auto) 0.0 Immature Gran # (Auto) 0.12 H Neut # (Auto) 19.44 H Lymph # (Auto) 1.80 [place] # (Auto) 0.90 H Eos # (Auto) 0.00 Baso # (Auto) 0.01 PT INR APTT 50.4 H* PTT Ratio 1.9 Sample Site POC pH POC pCO2 POC pO2 POC HCO3 POC Total CO2 POC Base Excess POC ABG O2 Sat Eris Test O2 Delivery Device POC O2 Rate Minute Ventilation POC FiO2 Tidal Volume PEEP Sodium 140 Potassium 4.1 Chloride 106 Carbon Dioxide 26 Anion Gap 8.0 BUN 23 H Creatinine 1.71 H D Est Cr Clr Drug Dosing 112.7 Est GFR ( Amer) 63.5 Est GFR (Non-Af Amer) 54.8 BUN/Creatinine Ratio 13.2 Glucose 157 H POC Glucose POC Glucose (other) Estimat Average Glucose Hemoglobin A1c Lactate Calcium 6.9 L Phosphorus 3.6 Magnesium 1.9 Total Bilirubin Direct Bilirubin AST ALT Alkaline Phosphatase Total Creatine Kinase CK-MM (CK-3) CK-MB (CK-2) CK-BB (CK-1) Creatine Kinase Interp Troponin I Total Protein Albumin Globulin Albumin/Globulin Ratio Lipase TSH Free T4 Free T3 FSH Luteinizing Hormone Testosterone Level Specimen Hemolysis Urine Color Urine Appearance Urine pH Ur Specific Leigh Urine Protein Urine Glucose (UA) Urine Ketones Urine Blood Urine Nitrite Urine Bilirubin Urine Urobilinogen Ur Leukocyte Esterase Urine WBC (Auto) Urine RBC (Auto) U Hyaline Cast (Auto) U Epithel Cells (Auto) Urine Bacteria (Auto) Granular Casts Nasal Screen MRSA (PCR) Urine Opiates Screen Ur Methadone, Qual Urine Barbiturates Ur Phencyclidine (PCP) U Amphetamin/Meth Scrn MDMA (Ecstasy) Screen U Benzodiazepines Scrn Ur Cocaine Metabolite U Marijuana (THC) Screen Hep Bs Antigen Hepatitis C Antibody Influenza Type A (PCR) Influenza Type B (PCR) Blood Type Antibody Screen 07/09/18 07/09/18 07/09/18 02:06 03:11 03:43 WBC RBC Hgb Hct MCV MCH MCHC RDW Std Deviation RDW Coeff of [place] Plt Count MPV Immature Gran % (Auto) Neut % (Auto) Lymph % (Auto) [place] % (Auto) Eos % (Auto) Baso % (Auto) Immature Gran # (Auto) Neut # (Auto) Lymph # (Auto) [place] # (Auto) Eos # (Auto) Baso # (Auto) PT INR APTT PTT Ratio Sample Site Art Line POC pH 7.43 POC pCO2 33 L POC pO2 226 H POC HCO3 23 POC Total CO2 24 POC Base Excess -2.0 POC ABG O2 Sat 100.0 H Eris Test NA O2 Delivery Device Ventilator POC O2 Rate 26 Minute Ventilation POC FiO2 100 Tidal Volume PEEP 10 Sodium Potassium Chloride Carbon Dioxide Anion Gap BUN Creatinine Est Cr Clr Drug Dosing Est GFR ( Amer) Est GFR (Non-Af Amer) BUN/Creatinine Ratio Glucose POC Glucose 159 H 156 H POC Glucose (other) Estimat Average Glucose Hemoglobin A1c Lactate Calcium Phosphorus Magnesium Total Bilirubin Direct Bilirubin AST ALT Alkaline Phosphatase Total Creatine Kinase CK-MM (CK-3) CK-MB (CK-2) CK-BB (CK-1) Creatine Kinase Interp Troponin I Total Protein Albumin Globulin Albumin/Globulin Ratio Lipase TSH Free T4 Free T3 FSH Luteinizing Hormone Testosterone Level Specimen Hemolysis Urine Color Urine Appearance Urine pH Ur Specific Leigh Urine Protein Urine Glucose (UA) Urine Ketones Urine Blood Urine Nitrite Urine Bilirubin Urine Urobilinogen Ur Leukocyte Esterase Urine WBC (Auto) Urine RBC (Auto) U Hyaline Cast (Auto) U Epithel Cells (Auto) Urine Bacteria (Auto) Granular Casts Nasal Screen MRSA (PCR) Urine Opiates Screen Ur Methadone, Qual Urine Barbiturates Ur Phencyclidine (PCP) U Amphetamin/Meth Scrn MDMA (Ecstasy) Screen U Benzodiazepines Scrn Ur Cocaine Metabolite U Marijuana (THC) Screen Hep Bs Antigen Hepatitis C Antibody Influenza Type A (PCR) Influenza Type B (PCR) Blood Type Antibody Screen 07/09/18 07/09/18 07/09/18 04:08 05:00 06:03 WBC RBC Hgb Hct MCV MCH MCHC RDW Std Deviation RDW Coeff of [place] Plt Count MPV Immature Gran % (Auto) Neut % (Auto) Lymph % (Auto) [place] % (Auto) Eos % (Auto) Baso % (Auto) Immature Gran # (Auto) Neut # (Auto) Lymph # (Auto) [place] # (Auto) Eos # (Auto) Baso # (Auto) PT INR APTT PTT Ratio Sample Site POC pH POC pCO2 POC pO2 POC HCO3 POC Total CO2 POC Base Excess POC ABG O2 Sat Eris Test O2 Delivery Device POC O2 Rate Minute Ventilation POC FiO2 Tidal Volume PEEP Sodium Potassium Chloride Carbon Dioxide Anion Gap BUN Creatinine Est Cr Clr Drug Dosing Est GFR ( Amer) Est GFR (Non-Af Amer) BUN/Creatinine Ratio Glucose POC Glucose 147 H 135 H 148 H POC Glucose (other) Estimat Average Glucose Hemoglobin A1c Lactate Calcium Phosphorus Magnesium Total Bilirubin Direct Bilirubin AST ALT Alkaline Phosphatase Total Creatine Kinase CK-MM (CK-3) CK-MB (CK-2) CK-BB (CK-1) Creatine Kinase Interp Troponin I Total Protein Albumin Globulin Albumin/Globulin Ratio Lipase TSH Free T4 Free T3 FSH Luteinizing Hormone Testosterone Level Specimen Hemolysis Urine Color Urine Appearance Urine pH Ur Specific Leigh Urine Protein Urine Glucose (UA) Urine Ketones Urine Blood Urine Nitrite Urine Bilirubin Urine Urobilinogen Ur Leukocyte Esterase Urine WBC (Auto) Urine RBC (Auto) U Hyaline Cast (Auto) U Epithel Cells (Auto) Urine Bacteria (Auto) Granular Casts Nasal Screen MRSA (PCR) Urine Opiates Screen Ur Methadone, Qual Urine Barbiturates Ur Phencyclidine (PCP) U Amphetamin/Meth Scrn MDMA (Ecstasy) Screen U Benzodiazepines Scrn Ur Cocaine Metabolite U Marijuana (THC) Screen Hep Bs Antigen Hepatitis C Antibody Influenza Type A (PCR) Influenza Type B (PCR) Blood Type Antibody Screen 07/09/18 07/09/18 07/09/18 06:04 06:04 06:04 WBC 20.65 H RBC 5.76 Hgb 18.1 H Hct 52.1 H MCV 90.5 MCH 31.4 MCHC 34.7 RDW Std Deviation 47.1 H RDW Coeff of [place]axa 14.2 Plt Count 196 MPV 10.4 Immature Gran % (Auto) 0.5 Neut % (Auto) 84.9 Lymph % (Auto) 10.8 [place] % (Auto) 3.8 Eos % (Auto) 0.0 Baso % (Auto) 0.0 Immature Gran # (Auto) 0.11 H Neut # (Auto) 17.50 H Lymph # (Auto) 2.24 [place] # (Auto) 0.79 H Eos # (Auto) 0.00 Baso # (Auto) 0.01 PT 11.9 INR 1.2 H APTT PTT Ratio Sample Site POC pH POC pCO2 POC pO2 POC HCO3 POC Total CO2 POC Base Excess POC ABG O2 Sat Eris Test O2 Delivery Device POC O2 Rate Minute Ventilation POC FiO2 Tidal Volume PEEP Sodium 138 Potassium 3.7 Chloride 106 Carbon Dioxide 23 Anion Gap 9.0 BUN 22 H Creatinine 1.60 H Est Cr Clr Drug Dosing 120.5 Est GFR ( Amer) 68.9 Est GFR (Non-Af Amer) 59.4 BUN/Creatinine Ratio 13.6 Glucose 152 H POC Glucose POC Glucose (other) Estimat Average Glucose Hemoglobin A1c Lactate Calcium 6.7 L Phosphorus 2.7 Magnesium 1.8 Total Bilirubin 0.7 Direct Bilirubin 0.3 H AST 912 H ALT 362 H Alkaline Phosphatase 29 L Total Creatine Kinase CK-MM (CK-3) CK-MB (CK-2) CK-BB (CK-1) Creatine Kinase Interp Troponin I 49.200 H* Total Protein 6.2 L Albumin 2.6 L Globulin Albumin/Globulin Ratio Lipase TSH Free T4 Free T3 FSH Luteinizing Hormone Testosterone Level Specimen Hemolysis Urine Color Urine Appearance Urine pH Ur Specific Leigh Urine Protein Urine Glucose (UA) Urine Ketones Urine Blood Urine Nitrite Urine Bilirubin Urine Urobilinogen Ur Leukocyte Esterase Urine WBC (Auto) Urine RBC (Auto) U Hyaline Cast (Auto) U Epithel Cells (Auto) Urine Bacteria (Auto) Granular Casts Nasal Screen MRSA (PCR) Urine Opiates Screen Ur Methadone, Qual Urine Barbiturates Ur Phencyclidine (PCP) U Amphetamin/Meth Scrn MDMA (Ecstasy) Screen U Benzodiazepines Scrn Ur Cocaine Metabolite U Marijuana (THC) Screen Hep Bs Antigen Hepatitis C Antibody Influenza Type A (PCR) Influenza Type B (PCR) Blood Type Antibody Screen 07/09/18 07/09/18 07/09/18 06:04 06:04 06:04 WBC RBC Hgb Hct MCV MCH MCHC RDW Std Deviation RDW Coeff of [place] Plt Count MPV Immature Gran % (Auto) Neut % (Auto) Lymph % (Auto) [place] % (Auto) Eos % (Auto) Baso % (Auto) Immature Gran # (Auto) Neut # (Auto) Lymph # (Auto) [place] # (Auto) Eos # (Auto) Baso # (Auto) PT INR APTT PTT Ratio Sample Site POC pH POC pCO2 POC pO2 POC HCO3 POC Total CO2 POC Base Excess POC ABG O2 Sat Eris Test O2 Delivery Device POC O2 Rate Minute Ventilation POC FiO2 Tidal Volume PEEP Sodium Potassium Chloride Carbon Dioxide Anion Gap BUN Creatinine Est Cr Clr Drug Dosing Est GFR ( Amer) Est GFR (Non-Af Amer) BUN/Creatinine Ratio Glucose POC Glucose POC Glucose (other) Estimat Average Glucose 108 Hemoglobin A1c 5.4 Lactate 2.7 H* Calcium Phosphorus Magnesium Total Bilirubin Direct Bilirubin AST ALT Alkaline Phosphatase Total Creatine Kinase Cancelled CK-MM (CK-3) Cancelled CK-MB (CK-2) Cancelled CK-BB (CK-1) Cancelled Creatine Kinase Interp Cancelled Troponin I Total Protein Albumin Globulin Albumin/Globulin Ratio Lipase TSH Free T4 Free T3 FSH Luteinizing Hormone Testosterone Level Specimen Hemolysis Urine Color Urine Appearance Urine pH Ur Specific Leigh Urine Protein Urine Glucose (UA) Urine Ketones Urine Blood Urine Nitrite Urine Bilirubin Urine Urobilinogen Ur Leukocyte Esterase Urine WBC (Auto) Urine RBC (Auto) U Hyaline Cast (Auto) U Epithel Cells (Auto) Urine Bacteria (Auto) Granular Casts Nasal Screen MRSA (PCR) Urine Opiates Screen Ur Methadone, Qual Urine Barbiturates Ur Phencyclidine (PCP) U Amphetamin/Meth Scrn MDMA (Ecstasy) Screen U Benzodiazepines Scrn Ur Cocaine Metabolite U Marijuana (THC) Screen Hep Bs Antigen Hepatitis C Antibody Influenza Type A (PCR) Influenza Type B (PCR) Blood Type Antibody Screen 07/09/18 07/09/18 07/09/18 07:17 07:25 09:49 WBC 15.83 H RBC 4.76 Hgb 14.7 D Hct 43.4 MCV 91.2 MCH 30.9 MCHC 33.9 RDW Std Deviation 47.2 H RDW Coeff of [place] 14.2 Plt Count 173 MPV 10.1 Immature Gran % (Auto) 0.4 Neut % (Auto) 85.0 Lymph % (Auto) 10.3 [place] % (Auto) 4.2 Eos % (Auto) 0.0 Baso % (Auto) 0.1 Immature Gran # (Auto) 0.06 H Neut # (Auto) 13.46 H Lymph # (Auto) 1.63 [place] # (Auto) 0.67 H Eos # (Auto) 0.00 Baso # (Auto) 0.01 PT INR APTT PTT Ratio Sample Site Art Line POC pH 7.35 POC pCO2 38 POC pO2 68 L POC HCO3 22 POC Total CO2 24 POC Base Excess -4.0 POC ABG O2 Sat 96.0 H Eris Test NA O2 Delivery Device Ventilator POC O2 Rate 26 Minute Ventilation POC FiO2 70 Tidal Volume PEEP 10 Sodium Potassium Chloride Carbon Dioxide Anion Gap BUN Creatinine Est Cr Clr Drug Dosing Est GFR ( Amer) Est GFR (Non-Af Amer) BUN/Creatinine Ratio Glucose POC Glucose POC Glucose (other) 139 H Estimat Average Glucose Hemoglobin A1c Lactate Calcium Phosphorus Magnesium Total Bilirubin Direct Bilirubin AST ALT Alkaline Phosphatase Total Creatine Kinase CK-MM (CK-3) CK-MB (CK-2) CK-BB (CK-1) Creatine Kinase Interp Troponin I Total Protein Albumin Globulin Albumin/Globulin Ratio Lipase TSH Free T4 Free T3 FSH Luteinizing Hormone Testosterone Level Specimen Hemolysis Urine Color Urine Appearance Urine pH Ur Specific Leigh Urine Protein Urine Glucose (UA) Urine Ketones Urine Blood Urine Nitrite Urine Bilirubin Urine Urobilinogen Ur Leukocyte Esterase Urine WBC (Auto) Urine RBC (Auto) U Hyaline Cast (Auto) U Epithel Cells (Auto) Urine Bacteria (Auto) Granular Casts Nasal Screen MRSA (PCR) Urine Opiates Screen Ur Methadone, Qual Urine Barbiturates Ur Phencyclidine (PCP) U Amphetamin/Meth Scrn MDMA (Ecstasy) Screen U Benzodiazepines Scrn Ur Cocaine Metabolite U Marijuana (THC) Screen Hep Bs Antigen Hepatitis C Antibody Influenza Type A (PCR) Influenza Type B (PCR) Blood Type Antibody Screen 07/09/18 07/09/18 07/09/18 09:49 09:49 09:49 WBC RBC Hgb Hct MCV MCH MCHC RDW Std Deviation RDW Coeff of [place] Plt Count MPV Immature Gran % (Auto) Neut % (Auto) Lymph % (Auto) [place] % (Auto) Eos % (Auto) Baso % (Auto) Immature Gran # (Auto) Neut # (Auto) Lymph # (Auto) [place] # (Auto) Eos # (Auto) Baso # (Auto) PT INR APTT PTT Ratio Sample Site POC pH POC pCO2 POC pO2 POC HCO3 POC Total CO2 POC Base Excess POC ABG O2 Sat Eris Test O2 Delivery Device POC O2 Rate Minute Ventilation POC FiO2 Tidal Volume PEEP Sodium 146 H D Potassium 2.4 L* D Chloride 120 H Carbon Dioxide 18 L Anion Gap 9.0 BUN 15 Creatinine 0.94 D Est Cr Clr Drug Dosing 205.1 Est GFR ( Amer) 131.0 Est GFR (Non-Af Amer) 113.0 BUN/Creatinine Ratio 15.5 Glucose 99 POC Glucose POC Glucose (other) Estimat Average Glucose Hemoglobin A1c Lactate Calcium < 5.0 L* D Phosphorus 1.9 L Magnesium 1.0 L Total Bilirubin Direct Bilirubin AST ALT Alkaline Phosphatase Total Creatine Kinase 39810 H CK-MM (CK-3) CK-MB (CK-2) CK-BB (CK-1) Creatine Kinase Interp Troponin I Total Protein Albumin Globulin Albumin/Globulin Ratio Lipase TSH Free T4 1.02 Free T3 2.16 L FSH < 0.30 Luteinizing Hormone < 0.07 Testosterone Level 416.8 Specimen Hemolysis Urine Color Urine Appearance Urine pH Ur Specific Leigh Urine Protein Urine Glucose (UA) Urine Ketones Urine Blood Urine Nitrite Urine Bilirubin Urine Urobilinogen Ur Leukocyte Esterase Urine WBC (Auto) Urine RBC (Auto) U Hyaline Cast (Auto) U Epithel Cells (Auto) Urine Bacteria (Auto) Granular Casts Nasal Screen MRSA (PCR) Urine Opiates Screen Ur Methadone, Qual Urine Barbiturates Ur Phencyclidine (PCP) U Amphetamin/Meth Scrn MDMA (Ecstasy) Screen U Benzodiazepines Scrn Ur Cocaine Metabolite U Marijuana (THC) Screen Hep Bs Antigen Neg Hepatitis C Antibody Neg Influenza Type A (PCR) Influenza Type B (PCR) Blood Type Antibody Screen 07/09/18 07/09/18 07/09/18 09:54 09:55 11:52 WBC RBC Hgb Hct MCV MCH MCHC RDW Std Deviation RDW Coeff of [place] Plt Count MPV Immature Gran % (Auto) Neut % (Auto) Lymph % (Auto) [place] % (Auto) Eos % (Auto) Baso % (Auto) Immature Gran # (Auto) Neut # (Auto) Lymph # (Auto) [place] # (Auto) Eos # (Auto) Baso # (Auto) PT INR APTT PTT Ratio Sample Site Art Line POC pH 7.36 POC pCO2 43 POC pO2 84 POC HCO3 25 H POC Total CO2 27 POC Base Excess -1.0 POC ABG O2 Sat 97.0 H Eris Test NA O2 Delivery Device Ventilator POC O2 Rate 14 Minute Ventilation 70 POC FiO2 Tidal Volume 600 PEEP 10 Sodium Potassium Chloride Carbon Dioxide Anion Gap BUN Creatinine Est Cr Clr Drug Dosing Est GFR ( Amer) Est GFR (Non-Af Amer) BUN/Creatinine Ratio Glucose POC Glucose POC Glucose (other) Estimat Average Glucose Hemoglobin A1c Lactate 1.7 Calcium Phosphorus Magnesium Total Bilirubin Direct Bilirubin AST ALT Alkaline Phosphatase Total Creatine Kinase CK-MM (CK-3) CK-MB (CK-2) CK-BB (CK-1) Creatine Kinase Interp Troponin I Total Protein Albumin Globulin Albumin/Globulin Ratio Lipase TSH Free T4 Free T3 FSH Luteinizing Hormone Testosterone Level Specimen Hemolysis Urine Color Urine Appearance Urine pH Ur Specific Leigh Urine Protein Urine Glucose (UA) Urine Ketones Urine Blood Urine Nitrite Urine Bilirubin Urine Urobilinogen Ur Leukocyte Esterase Urine WBC (Auto) Urine RBC (Auto) U Hyaline Cast (Auto) U Epithel Cells (Auto) Urine Bacteria (Auto) Granular Casts Nasal Screen MRSA (PCR) Urine Opiates Screen Ur Methadone, Qual Urine Barbiturates Ur Phencyclidine (PCP) U Amphetamin/Meth Scrn MDMA (Ecstasy) Screen U Benzodiazepines Scrn Ur Cocaine Metabolite U Marijuana (THC) Screen Hep Bs Antigen Hepatitis C Antibody Influenza Type A (PCR) Influenza Type B (PCR) Blood Type AB Positive Antibody Screen NEGATIVE 07/09/18 07/09/18 07/09/18 12:09 12:09 15:28 WBC 17.24 H RBC 5.40 Hgb 16.7 Hct 49.3 MCV 91.3 MCH 30.9 MCHC 33.9 RDW Std Deviation 47.6 H RDW Coeff of [place] 14.3 Plt Count 179 MPV 9.9 Immature Gran % (Auto) 0.4 Neut % (Auto) 83.8 Lymph % (Auto) 11.5 [place] % (Auto) 4.1 Eos % (Auto) 0.1 Baso % (Auto) 0.1 Immature Gran # (Auto) 0.07 H Neut # (Auto) 14.46 H Lymph # (Auto) 1.98 [place] # (Auto) 0.71 H Eos # (Auto) 0.01 Baso # (Auto) 0.01 PT INR APTT PTT Ratio Sample Site POC pH POC pCO2 POC pO2 POC HCO3 POC Total CO2 POC Base Excess POC ABG O2 Sat Eris Test O2 Delivery Device POC O2 Rate Minute Ventilation POC FiO2 Tidal Volume PEEP Sodium 139 142 Potassium 3.6 D Chloride 106 105 Carbon Dioxide 26 31 Anion Gap 7.0 6.0 BUN 19 H 18 Creatinine 1.61 H D 1.55 H Est Cr Clr Drug Dosing 119.7 124.4 Est GFR ( Amer) 68.3 71.6 Est GFR (Non-Af Amer) 59.0 61.7 BUN/Creatinine Ratio 11.7 11.5 Glucose 146 H 105 H POC Glucose POC Glucose (other) Estimat Average Glucose Hemoglobin A1c Lactate Calcium 6.6 L D 6.8 L Phosphorus 2.8 Magnesium 2.4 Total Bilirubin Direct Bilirubin AST ALT Alkaline Phosphatase Total Creatine Kinase CK-MM (CK-3) CK-MB (CK-2) CK-BB (CK-1) Creatine Kinase Interp Troponin I Total Protein Albumin Globulin Albumin/Globulin Ratio Lipase TSH Free T4 Free T3 FSH Luteinizing Hormone Testosterone Level Specimen Hemolysis Urine Color Urine Appearance Urine pH Ur Specific Leigh Urine Protein Urine Glucose (UA) Urine Ketones Urine Blood Urine Nitrite Urine Bilirubin Urine Urobilinogen Ur Leukocyte Esterase Urine WBC (Auto) Urine RBC (Auto) U Hyaline Cast (Auto) U Epithel Cells (Auto) Urine Bacteria (Auto) Granular Casts Nasal Screen MRSA (PCR) Urine Opiates Screen Ur Methadone, Qual Urine Barbiturates Ur Phencyclidine (PCP) U Amphetamin/Meth Scrn MDMA (Ecstasy) Screen U Benzodiazepines Scrn Ur Cocaine Metabolite U Marijuana (THC) Screen Hep Bs Antigen Hepatitis C Antibody Influenza Type A (PCR) Influenza Type B (PCR) Blood Type Antibody Screen 07/09/18 07/09/18 07/09/18 15:29 15:47 Unknown WBC 18.64 H RBC 5.52 Hgb 17.1 Hct 50.0 MCV 90.6 MCH 31.0 MCHC 34.2 RDW Std Deviation 46.7 H RDW Coeff of [place] 14.1 Plt Count 189 MPV 10.0 Immature Gran % (Auto) 0.7 Neut % (Auto) 84.2 Lymph % (Auto) 8.8 [place] % (Auto) 6.1 Eos % (Auto) 0.1 Baso % (Auto) 0.1 Immature Gran # (Auto) 0.13 H Neut # (Auto) 15.71 H Lymph # (Auto) 1.64 [place] # (Auto) 1.14 H Eos # (Auto) 0.01 Baso # (Auto) 0.01 PT INR APTT PTT Ratio Sample Site Art Line POC pH 7.42 POC pCO2 38 POC pO2 46 L POC HCO3 26 H POC Total CO2 27 POC Base Excess 1.0 POC ABG O2 Sat 89.0 L Eris Test Pass O2 Delivery Device POC O2 Rate Minute Ventilation POC FiO2 Tidal Volume PEEP Sodium Potassium Chloride Carbon Dioxide Anion Gap BUN Creatinine Est Cr Clr Drug Dosing Est GFR ( Amer) Est GFR (Non-Af Amer) BUN/Creatinine Ratio Glucose POC Glucose POC Glucose (other) Estimat Average Glucose Hemoglobin A1c Lactate Calcium Phosphorus Magnesium Total Bilirubin Direct Bilirubin AST ALT Alkaline Phosphatase Total Creatine Kinase CK-MM (CK-3) CK-MB (CK-2) CK-BB (CK-1) Creatine Kinase Interp Troponin I Total Protein Albumin Globulin Albumin/Globulin Ratio Lipase TSH Free T4 Free T3 FSH Luteinizing Hormone Testosterone Level Specimen Hemolysis Urine Color Urine Appearance Urine pH Ur Specific Leigh Urine Protein Urine Glucose (UA) Urine Ketones Urine Blood Urine Nitrite Urine Bilirubin Urine Urobilinogen Ur Leukocyte Esterase Urine WBC (Auto) Urine RBC (Auto) U Hyaline Cast (Auto) U Epithel Cells (Auto) Urine Bacteria (Auto) Granular Casts Nasal Screen MRSA (PCR) Urine Opiates Screen Neg Ur Methadone, Qual Neg Urine Barbiturates Neg Ur Phencyclidine (PCP) Neg U Amphetamin/Meth Scrn Neg MDMA (Ecstasy) Screen Neg U Benzodiazepines Scrn Neg Ur Cocaine Metabolite Neg U Marijuana (THC) Screen Pos H Hep Bs Antigen Hepatitis C Antibody Influenza Type A (PCR) Influenza Type B (PCR) Blood Type Antibody Screen 07/09/18 Unknown WBC RBC Hgb Hct MCV MCH MCHC RDW Std Deviation RDW Coeff of [place] Plt Count MPV Immature Gran % (Auto) Neut % (Auto) Lymph % (Auto) [place] % (Auto) Eos % (Auto) Baso % (Auto) Immature Gran # (Auto) Neut # (Auto) Lymph # (Auto) [place] # (Auto) Eos # (Auto) Baso # (Auto) PT INR APTT PTT Ratio Sample Site POC pH POC pCO2 POC pO2 POC HCO3 POC Total CO2 POC Base Excess POC ABG O2 Sat Eris Test O2 Delivery Device POC O2 Rate Minute Ventilation POC FiO2 Tidal Volume PEEP Sodium Potassium Chloride Carbon Dioxide Anion Gap BUN Creatinine Est Cr Clr Drug Dosing Est GFR ( Amer) Est GFR (Non-Af Amer) BUN/Creatinine Ratio Glucose POC Glucose POC Glucose (other) Estimat Average Glucose Hemoglobin A1c Lactate Calcium Phosphorus Magnesium Total Bilirubin Direct Bilirubin AST ALT Alkaline Phosphatase Total Creatine Kinase CK-MM (CK-3) CK-MB (CK-2) CK-BB (CK-1) Creatine Kinase Interp Troponin I Total Protein Albumin Globulin Albumin/Globulin Ratio Lipase TSH Free T4 Free T3 FSH Luteinizing Hormone Testosterone Level Specimen Hemolysis Urine Color Yellow Urine Appearance Turbid H Urine pH 5.0 Ur Specific Leigh 1.025 Urine Protein 1+ H Urine Glucose (UA) Negative Urine Ketones Negative Urine Blood 3+ H Urine Nitrite Negative Urine Bilirubin Negative Urine Urobilinogen Negative Ur Leukocyte Esterase 1+ H Urine WBC (Auto) 5-10 H Urine RBC (Auto) >30 H U Hyaline Cast (Auto) 5-10 H U Epithel Cells (Auto) >30 H Urine Bacteria (Auto) Negative Granular Casts 1-5 H Nasal Screen MRSA (PCR) Urine Opiates Screen Ur Methadone, Qual Urine Barbiturates Ur Phencyclidine (PCP) U Amphetamin/Meth Scrn MDMA (Ecstasy) Screen U Benzodiazepines Scrn Ur Cocaine Metabolite U Marijuana (THC) Screen Hep Bs Antigen Hepatitis C Antibody Influenza Type A (PCR) Influenza Type B (PCR) Blood Type Antibody Screen Medications Administered Current Inpatient Medications Acetaminophen (Tylenol) 650 mg NM ONE PRN PRN Reason: Rebound Hyperthermia x 1 dose Stop: 08/07/18 17:24 Chlorhexidine Gluconate (Peridex) 15 ml MT DAILY OPAL Stop: 08/07/18 17:59 Last Admin: 07/09/18 07:31 Dose: 15 ml Documented by: Dextrose (Dextrose 50%) 25 - 50 ml IV UD PRN; Protocol PRN Reason: Hypoglycemia Protocol Stop: 08/07/18 16:44 Glucagon (Glucagen) 1 mg IM UD PRN; Protocol PRN Reason: Hypoglycemia Protocol Stop: 08/07/18 16:44 Glucose (Glucose 40%) 15 - 30 gm PO UD PRN; Protocol PRN Reason: Hypoglycemia Protocol Stop: 08/07/18 16:44 Glucose (Dex4 Glucose) 4 - 8 tabs PO UD PRN; Protocol PRN Reason: Hypoglycemia Protocol Stop: 08/07/18 16:44 Fentanyl Citrate (Fentanyl Drip) 1,250 mcg in 250 mls @ 15 mls/hr IV .[id number] [facility]; Protocol Stop: 07/22/18 17:24 Last Admin: 07/09/18 13:11 Dose: 75 mcg/hr, 15 mls/hr Documented by: Propofol (Diprivan) 1,000 mg in 100 mls @ 51.71 mls/hr IV .[id number] [facility]; Protocol Stop: 07/11/18 17:24 Last Admin: 07/09/18 15:36 Dose: 50 mcg/kg/min, 51.7 mls/hr Documented by: Heparin Sodium/Dextrose (Heparin Sodium/Dextrose) 25,000 units in 500 mls @ 43 mls/hr IV .[id number] [facility]; Protocol Stop: 08/07/18 17:59 Last Admin: 07/09/18 07:23 Dose: 2,150 units/hr, 43 mls/hr Documented by: Pantoprazole Sodium 40 mg/ (Syringe) 10 mls @ 5 mls/min IV BID [facility] Stop: 08/07/18 20:59 Last Admin: 07/09/18 07:31 Dose: 5 mls/min Documented by: Amiodarone HCl/Dextrose (Nexterone / D5w) 360 mg in 200 mls @ 16.667 mls/hr IV .Q12H [facility] Stop: 07/09/18 23:00 Last Admin: 07/09/18 05:08 Dose: 0.5 mg/min, 16.7 mls/hr Documented by: Dextrose/Sodium Chloride (D5w And Nss) 1,000 mls @ 150 mls/hr IV .[id number] OPAL Stop: 08/08/18 00:14 Last Admin: 07/09/18 11:01 Dose: 150 mls/hr Documented by: Cefepime HCl 2,000 mg/ Syringe 12.5 mls @ 5 mls/min IV Q12H OPAL Stop: 07/16/18 15:59 Ipratropium Leigh (Atrovent 0.02% 0.5mg/2.5ml) 0.5 mg INH Q4H PRN PRN Reason: Dyspnea Stop: 08/07/18 15:33 Levalbuterol HCl (Xopenex 0.63 Mg/3 Ml Neb) 0.63 mg INH Q4H PRN PRN Reason: Dyspnea Stop: 08/07/18 15:33 Miscellaneous (Icu Protocol For Hyperglycemia) 1 ea N/A PRN PRN; Protocol PRN Reason: Hyperglycemia Protocol Stop: 07/10/18 15:33 Miscellaneous (Carbohydrates For Hypoglycemia) 15 - 30 gm PO UD PRN PRN Reason: Hypoglycemia Treatment Stop: 08/07/18 16:44 Nutritional Formula (Peptamen Intense Vhp) 1,000 ml OG UD OPAL; Protocol Stop: 08/08/18 14:59 Last Admin: 07/09/18 15:36 Dose: 1,000 ml Documented by: Thiamine HCl (Vitamin B-1) 100 mg PO DAILY [facility] Stop: 08/09/18 08:59 Resident Activity Tracking Resident Involvement: Resident Care Provided Care Provided: Adult Hospital Medicine (1) Acute kidney failure Acute renal failure type: unspecified Qualified Code(s): N17.9 - Acute kidney failure, unspecified (2) Bilateral pneumonia Lung location: lower lobe of lung Pneumonia type: due to unspecified organism Qualified Code(s): J18.1 - Lobar pneumonia, unspecified organism
[2018-07-09 16:19] LABS: BUN Creatinine Ratio 11.5 (10-20); Calcium 6.8 mg/dl (8.5-10.1); Creatinine Clr Calc Pharmacy 124.4 ml/min; Est GFR (African American) 71.6; Est GFR (Non-African American) 61.7
[2018-07-09 16:42] LABS: Phosphorus 2.7 mg/dl (2.5-4.9)
[2018-07-09] MEDS ORDERED: VANCOMYCIN TROUGH ONE (17:30)
[2018-07-09] MEDS ORDERED: VECURONIUM BROMIDE 10 MG VIAL IV STA ×2 (17:33→20:45)
[2018-07-09] MEDS ORDERED: MIDAZOLAM HCL 5 MG/ML 1 ML VIAL IV STA ×2 (17:33→20:13)
--- NOTE | 2018-07-09 17:34 | Nephrology Consultation ---
Date of Consultation July 09, 2018 Assessment & Plan (1) Acute kidney failure: -- Clinically consistent with ischemic ATN -- Non-oliguric -- Medications are appropriate for kidney function -- Fluid status and electrolytes are acceptable -- Renal US pending -- Document I/O's -- Monitor metabolic profile q 12 hours 30 minutes of critical care time spent wtih patient today. History of Present Illness Reason for Consultation: CHELSEY Requesting Physician: Benjy Corley MD Attending Physician: Todd Cobb MD History of Present Illness Mr. Gamez is a 23 year old male with MOSF following cardiac arrest. He remains on hypothermic protocol. The cause of his cardiac arrest is unclear. A reported witnessed asystolic arrest by EMS en route to [facility] with 25 minutes of CPR prior to ROSC. Urine output was reduced earlier this afternoon. This is improving following adjustment of Ruano catheter. Allergies Allergy/AdvReac Type Severity Reaction Status Date / Time Unable to Assess Allergy Verified 07/08/18 16:41 Patient History Medical History Anxiety Chronic steroid use Depression Family history of reaction to anesthesia History of abscess of skin and subcutaneous tissue 2016 -this required multiple incision and drainage procedures at [facility]; location - groin Marijuana use Morbid obesity with BMI of 45.0-49.9, adult Snoring Tobacco use Surgical History History of arthroscopy History of incision and drainage Groin abscess, 2016 History of lumbar surgery Family History Mother History of MTHFR mutation Pulmonary embolism Deep vein thrombosis Father Hypertension Other Lupus anticoagulant disorder Social History Communication Ability: Unable Beliefs That Will Affect Care: None marital status: Single Current Living Situation: Significant Other Current Living Situation Comment: Lives in [place] with significant other current occupational status: employed current occupation: Works as a camp specialist at a [employer] Other Information That Helps Us Care for You: No Feels Safe at Home: Yes Safety Concerns: Feels Safe At This Time Smoking Status: Current some day smoker Hx Alcohol Use: Yes Hx Substance Use: Yes Review of Systems unable to obtain due to sedated and ventilator dependent Physical Exam Vital Signs (Past 24 Hours): Last Vital Signs Temp 33.6 C L 07/09/18 16:00 Pulse 73 07/09/18 16:00 Resp 32 H 07/09/18 16:00 BP 180/101 H 07/09/18 16:00 Pulse Ox 94 07/09/18 16:00 Constitutional: + morbidly obese and + mechanically ventilated Respiratory: Auscultation: + diminished lung sounds Cardiovascular: RRR, no murmur, no edema Gastrointestinal (Abdomen): Percussion/Palpation: abdomen soft; abdomen nontender Skin: + turgor decreased Results & Data Laboratory Results Laboratory Results - last 24 hr 07/08/18 07/08/18 07/08/18 16:00 16:00 16:53 WBC RBC Hgb Hct MCV MCH MCHC RDW Std Deviation RDW Coeff of [place] Plt Count MPV Immature Gran % (Auto) Neut % (Auto) Lymph % (Auto) [place] % (Auto) Eos % (Auto) Baso % (Auto) Immature Gran # (Auto) Neut # (Auto) Lymph # (Auto) [place] # (Auto) Eos # (Auto) Baso # (Auto) PT 11.9 INR 1.2 H APTT PTT Ratio Sample Site POC pH POC pCO2 POC pO2 POC HCO3 POC Total CO2 POC Base Excess POC ABG O2 Sat Eris Test O2 Delivery Device POC O2 Rate Minute Ventilation POC FiO2 Tidal Volume PEEP Sodium Potassium Chloride Carbon Dioxide Anion Gap BUN Creatinine Est Cr Clr Drug Dosing Est GFR ( Amer) Est GFR (Non-Af Amer) BUN/Creatinine Ratio Glucose POC Glucose POC Glucose (other) Estimat Average Glucose Hemoglobin A1c Lactate 2.6 H* Calcium Phosphorus Magnesium Total Bilirubin Direct Bilirubin AST ALT Alkaline Phosphatase Total Creatine Kinase CK-MM (CK-3) CK-MB (CK-2) CK-BB (CK-1) Creatine Kinase Interp Troponin I 99.300 H* Total Protein Albumin Free T4 Free T3 FSH Luteinizing Hormone Testosterone Level Specimen Hemolysis Urine Color Urine Appearance Urine pH Ur Specific [place] Urine Protein Urine Glucose (UA) Urine Ketones Urine Blood Urine Nitrite Urine Bilirubin Urine Urobilinogen Ur Leukocyte Esterase Urine WBC (Auto) Urine RBC (Auto) U Hyaline Cast (Auto) U Epithel Cells (Auto) Urine Bacteria (Auto) Granular Casts Nasal Screen MRSA (PCR) Urine Opiates Screen Ur Methadone, Qual Urine Barbiturates Ur Phencyclidine (PCP) U Amphetamin/Meth Scrn MDMA (Ecstasy) Screen U Benzodiazepines Scrn Ur Cocaine Metabolite U Marijuana (THC) Screen Hep Bs Antigen Hepatitis C Antibody Influenza Type A (PCR) Influenza Type B (PCR) Blood Type Antibody Screen 07/08/18 07/08/18 07/08/18 16:53 17:28 17:33 WBC RBC Hgb Hct MCV MCH MCHC RDW Std Deviation RDW Coeff of [place] Plt Count MPV Immature Gran % (Auto) Neut % (Auto) Lymph % (Auto) [place] % (Auto) Eos % (Auto) Baso % (Auto) Immature Gran # (Auto) Neut # (Auto) Lymph # (Auto) [place] # (Auto) Eos # (Auto) Baso # (Auto) PT INR APTT 21.8 PTT Ratio 0.8 Sample Site Art Line POC pH 7.24 L POC pCO2 66 H POC pO2 72 L POC HCO3 28 H POC Total CO2 30 POC Base Excess 1.0 POC ABG O2 Sat 90.0 Eris Test NA O2 Delivery Device Ventilator POC O2 Rate 24 Minute Ventilation POC FiO2 10 Tidal Volume PEEP 8 Sodium Potassium Chloride Carbon Dioxide Anion Gap BUN Creatinine Est Cr Clr Drug Dosing Est GFR ( Amer) Est GFR (Non-Af Amer) BUN/Creatinine Ratio Glucose POC Glucose POC Glucose (other) Estimat Average Glucose Hemoglobin A1c Lactate Calcium Phosphorus Magnesium Total Bilirubin Direct Bilirubin AST ALT Alkaline Phosphatase Total Creatine Kinase 28222 H CK-MM (CK-3) CK-MB (CK-2) CK-BB (CK-1) Creatine Kinase Interp Troponin I 111.000 H* Total Protein Albumin Free T4 Free T3 FSH Luteinizing Hormone Testosterone Level Specimen Hemolysis Urine Color Urine Appearance Urine pH Ur Specific [place] Urine Protein Urine Glucose (UA) Urine Ketones Urine Blood Urine Nitrite Urine Bilirubin Urine Urobilinogen Ur Leukocyte Esterase Urine WBC (Auto) Urine RBC (Auto) U Hyaline Cast (Auto) U Epithel Cells (Auto) Urine Bacteria (Auto) Granular Casts Nasal Screen MRSA (PCR) Urine Opiates Screen Ur Methadone, Qual Urine Barbiturates Ur Phencyclidine (PCP) U Amphetamin/Meth Scrn MDMA (Ecstasy) Screen U Benzodiazepines Scrn Ur Cocaine Metabolite U Marijuana (THC) Screen Hep Bs Antigen Hepatitis C Antibody Influenza Type A (PCR) Influenza Type B (PCR) Blood Type Antibody Screen 07/08/18 07/08/18 07/08/18 17:46 18:20 20:00 WBC RBC Hgb Hct MCV MCH MCHC RDW Std Deviation RDW Coeff of [place] Plt Count MPV Immature Gran % (Auto) Neut % (Auto) Lymph % (Auto) [place] % (Auto) Eos % (Auto) Baso % (Auto) Immature Gran # (Auto) Neut # (Auto) Lymph # (Auto) [place] # (Auto) Eos # (Auto) Baso # (Auto) PT INR APTT PTT Ratio Sample Site POC pH POC pCO2 POC pO2 POC HCO3 POC Total CO2 POC Base Excess POC ABG O2 Sat Eris Test O2 Delivery Device POC O2 Rate Minute Ventilation POC FiO2 Tidal Volume PEEP Sodium Potassium Chloride Carbon Dioxide Anion Gap BUN Creatinine Est Cr Clr Drug Dosing Est GFR ( Amer) Est GFR (Non-Af Amer) BUN/Creatinine Ratio Glucose POC Glucose 125 H 70 POC Glucose (other) Estimat Average Glucose Hemoglobin A1c Lactate Calcium Phosphorus Magnesium Total Bilirubin Direct Bilirubin AST ALT Alkaline Phosphatase Total Creatine Kinase CK-MM (CK-3) CK-MB (CK-2) CK-BB (CK-1) Creatine Kinase Interp Troponin I Total Protein Albumin Free T4 Free T3 FSH Luteinizing Hormone Testosterone Level Specimen Hemolysis Urine Color Urine Appearance Urine pH Ur Specific [place] Urine Protein Urine Glucose (UA) Urine Ketones Urine Blood Urine Nitrite Urine Bilirubin Urine Urobilinogen Ur Leukocyte Esterase Urine WBC (Auto) Urine RBC (Auto) U Hyaline Cast (Auto) U Epithel Cells (Auto) Urine Bacteria (Auto) Granular Casts Nasal Screen MRSA (PCR) Negative Urine Opiates Screen Ur Methadone, Qual Urine Barbiturates Ur Phencyclidine (PCP) U Amphetamin/Meth Scrn MDMA (Ecstasy) Screen U Benzodiazepines Scrn Ur Cocaine Metabolite U Marijuana (THC) Screen Hep Bs Antigen Hepatitis C Antibody Influenza Type A (PCR) Influenza Type B (PCR) Blood Type Antibody Screen 07/08/18 07/08/18 07/08/18 20:09 21:01 21:52 WBC 23.54 H RBC 5.94 Hgb 18.4 H Hct 54.1 H MCV 91.1 MCH 31.0 MCHC 34.0 RDW Std Deviation 47.3 H RDW Coeff of [place]axa 14.1 Plt Count 219 MPV 10.4 Immature Gran % (Auto) 0.9 Neut % (Auto) 86.7 Lymph % (Auto) 8.2 [place] % (Auto) 4.2 Eos % (Auto) 0.0 Baso % (Auto) 0.0 Immature Gran # (Auto) 0.21 H Neut # (Auto) 20.41 H Lymph # (Auto) 1.92 [place] # (Auto) 1.00 H Eos # (Auto) 0.00 Baso # (Auto) 0.00 PT INR APTT PTT Ratio Sample Site POC pH POC pCO2 POC pO2 POC HCO3 POC Total CO2 POC Base Excess POC ABG O2 Sat Eris Test O2 Delivery Device POC O2 Rate Minute Ventilation POC FiO2 Tidal Volume PEEP Sodium Potassium Chloride Carbon Dioxide Anion Gap BUN Creatinine Est Cr Clr Drug Dosing Est GFR ( Amer) Est GFR (Non-Af Amer) BUN/Creatinine Ratio Glucose POC Glucose 67 L* POC Glucose (other) Estimat Average Glucose Hemoglobin A1c Lactate Calcium Phosphorus Magnesium Total Bilirubin Direct Bilirubin AST ALT Alkaline Phosphatase Total Creatine Kinase CK-MM (CK-3) CK-MB (CK-2) CK-BB (CK-1) Creatine Kinase Interp Troponin I Total Protein Albumin Free T4 Free T3 FSH Luteinizing Hormone Testosterone Level Specimen Hemolysis Urine Color Urine Appearance Urine pH Ur Specific [place] Urine Protein Urine Glucose (UA) Urine Ketones Urine Blood Urine Nitrite Urine Bilirubin Urine Urobilinogen Ur Leukocyte Esterase Urine WBC (Auto) Urine RBC (Auto) U Hyaline Cast (Auto) U Epithel Cells (Auto) Urine Bacteria (Auto) Granular Casts Nasal Screen MRSA (PCR) Urine Opiates Screen Ur Methadone, Qual Urine Barbiturates Ur Phencyclidine (PCP) U Amphetamin/Meth Scrn MDMA (Ecstasy) Screen U Benzodiazepines Scrn Ur Cocaine Metabolite U Marijuana (THC) Screen Hep Bs Antigen Hepatitis C Antibody Influenza Type A (PCR) Neg for Influ A Influenza Type B (PCR) Neg for Influ B Blood Type Antibody Screen 07/08/18 07/08/18 07/08/18 21:52 21:52 22:09 WBC RBC Hgb Hct MCV MCH MCHC RDW Std Deviation RDW Coeff of [place] Plt Count MPV Immature Gran % (Auto) Neut % (Auto) Lymph % (Auto) [place] % (Auto) Eos % (Auto) Baso % (Auto) Immature Gran # (Auto) Neut # (Auto) Lymph # (Auto) [place] # (Auto) Eos # (Auto) Baso # (Auto) PT INR APTT PTT Ratio Sample Site POC pH POC pCO2 POC pO2 POC HCO3 POC Total CO2 POC Base Excess POC ABG O2 Sat Eris Test O2 Delivery Device POC O2 Rate Minute Ventilation POC FiO2 Tidal Volume PEEP Sodium 141 Potassium 3.9 D Chloride 107 Carbon Dioxide 25 Anion Gap 10.0 BUN 23 H Creatinine 2.12 H Est Cr Clr Drug Dosing 90.9 Est GFR ( Amer) 49.0 Est GFR (Non-Af Amer) 42.3 BUN/Creatinine Ratio 10.9 Glucose 156 H POC Glucose 136 H POC Glucose (other) Estimat Average Glucose Hemoglobin A1c Lactate Calcium 6.5 L Phosphorus 3.7 D Magnesium 1.5 L Total Bilirubin Direct Bilirubin AST ALT Alkaline Phosphatase Total Creatine Kinase CK-MM (CK-3) CK-MB (CK-2) CK-BB (CK-1) Creatine Kinase Interp Troponin I 72.200 H* Cancelled Total Protein Albumin Free T4 Free T3 FSH Luteinizing Hormone Testosterone Level Specimen Hemolysis Urine Color Urine Appearance Urine pH Ur Specific [place] Urine Protein Urine Glucose (UA) Urine Ketones Urine Blood Urine Nitrite Urine Bilirubin Urine Urobilinogen Ur Leukocyte Esterase Urine WBC (Auto) Urine RBC (Auto) U Hyaline Cast (Auto) U Epithel Cells (Auto) Urine Bacteria (Auto) Granular Casts Nasal Screen MRSA (PCR) Urine Opiates Screen Ur Methadone, Qual Urine Barbiturates Ur Phencyclidine (PCP) U Amphetamin/Meth Scrn MDMA (Ecstasy) Screen U Benzodiazepines Scrn Ur Cocaine Metabolite U Marijuana (THC) Screen Hep Bs Antigen Hepatitis C Antibody Influenza Type A (PCR) Influenza Type B (PCR) Blood Type Antibody Screen 07/08/18 07/08/18 07/09/18 22:44 23:10 00:06 WBC RBC Hgb Hct MCV MCH MCHC RDW Std Deviation RDW Coeff of [place] Plt Count MPV Immature Gran % (Auto) Neut % (Auto) Lymph % (Auto) [place] % (Auto) Eos % (Auto) Baso % (Auto) Immature Gran # (Auto) Neut # (Auto) Lymph # (Auto) [place] # (Auto) Eos # (Auto) Baso # (Auto) PT INR APTT PTT Ratio Sample Site Art Line POC pH 7.39 POC pCO2 39 POC pO2 112 H POC HCO3 25 H POC Total CO2 26 POC Base Excess -1.0 POC ABG O2 Sat 99.0 H Eris Test Pass O2 Delivery Device Ventilator POC O2 Rate 24 Minute Ventilation POC FiO2 100 Tidal Volume PEEP 8 Sodium Potassium Chloride Carbon Dioxide Anion Gap BUN Creatinine Est Cr Clr Drug Dosing Est GFR ( Amer) Est GFR (Non-Af Amer) BUN/Creatinine Ratio Glucose POC Glucose 105 H 92 POC Glucose (other) Estimat Average Glucose Hemoglobin A1c Lactate Calcium Phosphorus Magnesium Total Bilirubin Direct Bilirubin AST ALT Alkaline Phosphatase Total Creatine Kinase CK-MM (CK-3) CK-MB (CK-2) CK-BB (CK-1) Creatine Kinase Interp Troponin I Total Protein Albumin Free T4 Free T3 FSH Luteinizing Hormone Testosterone Level Specimen Hemolysis Urine Color Urine Appearance Urine pH Ur Specific [place] Urine Protein Urine Glucose (UA) Urine Ketones Urine Blood Urine Nitrite Urine Bilirubin Urine Urobilinogen Ur Leukocyte Esterase Urine WBC (Auto) Urine RBC (Auto) U Hyaline Cast (Auto) U Epithel Cells (Auto) Urine Bacteria (Auto) Granular Casts Nasal Screen MRSA (PCR) Urine Opiates Screen Ur Methadone, Qual Urine Barbiturates Ur Phencyclidine (PCP) U Amphetamin/Meth Scrn MDMA (Ecstasy) Screen U Benzodiazepines Scrn Ur Cocaine Metabolite U Marijuana (THC) Screen Hep Bs Antigen Hepatitis C Antibody Influenza Type A (PCR) Influenza Type B (PCR) Blood Type Antibody Screen 07/09/18 07/09/18 07/09/18 01:13 02:06 02:06 WBC 22.27 H RBC 5.88 Hgb 18.5 H Hct 53.4 H MCV 90.8 MCH 31.5 MCHC 34.6 RDW Std Deviation 46.9 H RDW Coeff of Daxa 14.1 Plt Count 201 MPV 10.0 Immature Gran % (Auto) 0.5 Neut % (Auto) 87.4 Lymph % (Auto) 8.1 [place] % (Auto) 4.0 Eos % (Auto) 0.0 Baso % (Auto) 0.0 Immature Gran # (Auto) 0.12 H Neut # (Auto) 19.44 H Lymph # (Auto) 1.80 [place] # (Auto) 0.90 H Eos # (Auto) 0.00 Baso # (Auto) 0.01 PT INR APTT 50.4 H* PTT Ratio 1.9 Sample Site POC pH POC pCO2 POC pO2 POC HCO3 POC Total CO2 POC Base Excess POC ABG O2 Sat Eris Test O2 Delivery Device POC O2 Rate Minute Ventilation POC FiO2 Tidal Volume PEEP Sodium Potassium Chloride Carbon Dioxide Anion Gap BUN Creatinine Est Cr Clr Drug Dosing Est GFR ( Amer) Est GFR (Non-Af Amer) BUN/Creatinine Ratio Glucose POC Glucose 134 H POC Glucose (other) Estimat Average Glucose Hemoglobin A1c Lactate Calcium Phosphorus Magnesium Total Bilirubin Direct Bilirubin AST ALT Alkaline Phosphatase Total Creatine Kinase CK-MM (CK-3) CK-MB (CK-2) CK-BB (CK-1) Creatine Kinase Interp Troponin I Total Protein Albumin Free T4 Free T3 FSH Luteinizing Hormone Testosterone Level Specimen Hemolysis Urine Color Urine Appearance Urine pH Ur Specific [place] Urine Protein Urine Glucose (UA) Urine Ketones Urine Blood Urine Nitrite Urine Bilirubin Urine Urobilinogen Ur Leukocyte Esterase Urine WBC (Auto) Urine RBC (Auto) U Hyaline Cast (Auto) U Epithel Cells (Auto) Urine Bacteria (Auto) Granular Casts Nasal Screen MRSA (PCR) Urine Opiates Screen Ur Methadone, Qual Urine Barbiturates Ur Phencyclidine (PCP) U Amphetamin/Meth Scrn MDMA (Ecstasy) Screen U Benzodiazepines Scrn Ur Cocaine Metabolite U Marijuana (THC) Screen Hep Bs Antigen Hepatitis C Antibody Influenza Type A (PCR) Influenza Type B (PCR) Blood Type Antibody Screen 07/09/18 07/09/18 07/09/18 02:06 02:06 03:11 WBC RBC Hgb Hct MCV MCH MCHC RDW Std Deviation RDW Coeff of [place] Plt Count MPV Immature Gran % (Auto) Neut % (Auto) Lymph % (Auto) [place] % (Auto) Eos % (Auto) Baso % (Auto) Immature Gran # (Auto) Neut # (Auto) Lymph # (Auto) [place] # (Auto) Eos # (Auto) Baso # (Auto) PT INR APTT PTT Ratio Sample Site POC pH POC pCO2 POC pO2 POC HCO3 POC Total CO2 POC Base Excess POC ABG O2 Sat Eris Test O2 Delivery Device POC O2 Rate Minute Ventilation POC FiO2 Tidal Volume PEEP Sodium 140 Potassium 4.1 Chloride 106 Carbon Dioxide 26 Anion Gap 8.0 BUN 23 H Creatinine 1.71 H D Est Cr Clr Drug Dosing 112.7 Est GFR ( Amer) 63.5 Est GFR (Non-Af Amer) 54.8 BUN/Creatinine Ratio 13.2 Glucose 157 H POC Glucose 159 H 156 H POC Glucose (other) Estimat Average Glucose Hemoglobin A1c Lactate Calcium 6.9 L Phosphorus 3.6 Magnesium 1.9 Total Bilirubin Direct Bilirubin AST ALT Alkaline Phosphatase Total Creatine Kinase CK-MM (CK-3) CK-MB (CK-2) CK-BB (CK-1) Creatine Kinase Interp Troponin I Total Protein Albumin Free T4 Free T3 FSH Luteinizing Hormone Testosterone Level Specimen Hemolysis Urine Color Urine Appearance Urine pH Ur Specific [place] Urine Protein Urine Glucose (UA) Urine Ketones Urine Blood Urine Nitrite Urine Bilirubin Urine Urobilinogen Ur Leukocyte Esterase Urine WBC (Auto) Urine RBC (Auto) U Hyaline Cast (Auto) U Epithel Cells (Auto) Urine Bacteria (Auto) Granular Casts Nasal Screen MRSA (PCR) Urine Opiates Screen Ur Methadone, Qual Urine Barbiturates Ur Phencyclidine (PCP) U Amphetamin/Meth Scrn MDMA (Ecstasy) Screen U Benzodiazepines Scrn Ur Cocaine Metabolite U Marijuana (THC) Screen Hep Bs Antigen Hepatitis C Antibody Influenza Type A (PCR) Influenza Type B (PCR) Blood Type Antibody Screen 07/09/18 07/09/18 07/09/18 03:43 04:08 05:00 WBC RBC Hgb Hct MCV MCH MCHC RDW Std Deviation RDW Coeff of [place] Plt Count MPV Immature Gran % (Auto) Neut % (Auto) Lymph % (Auto) [place] % (Auto) Eos % (Auto) Baso % (Auto) Immature Gran # (Auto) Neut # (Auto) Lymph # (Auto) [place] # (Auto) Eos # (Auto) Baso # (Auto) PT INR APTT PTT Ratio Sample Site Art Line POC pH 7.43 POC pCO2 33 L POC pO2 226 H POC HCO3 23 POC Total CO2 24 POC Base Excess -2.0 POC ABG O2 Sat 100.0 H Eris Test NA O2 Delivery Device Ventilator POC O2 Rate 26 Minute Ventilation POC FiO2 100 Tidal Volume PEEP 10 Sodium Potassium Chloride Carbon Dioxide Anion Gap BUN Creatinine Est Cr Clr Drug Dosing Est GFR ( Amer) Est GFR (Non-Af Amer) BUN/Creatinine Ratio Glucose POC Glucose 147 H 135 H POC Glucose (other) Estimat Average Glucose Hemoglobin A1c Lactate Calcium Phosphorus Magnesium Total Bilirubin Direct Bilirubin AST ALT Alkaline Phosphatase Total Creatine Kinase CK-MM (CK-3) CK-MB (CK-2) CK-BB (CK-1) Creatine Kinase Interp Troponin I Total Protein Albumin Free T4 Free T3 FSH Luteinizing Hormone Testosterone Level Specimen Hemolysis Urine Color Urine Appearance Urine pH Ur Specific [place] Urine Protein Urine Glucose (UA) Urine Ketones Urine Blood Urine Nitrite Urine Bilirubin Urine Urobilinogen Ur Leukocyte Esterase Urine WBC (Auto) Urine RBC (Auto) U Hyaline Cast (Auto) U Epithel Cells (Auto) Urine Bacteria (Auto) Granular Casts Nasal Screen MRSA (PCR) Urine Opiates Screen Ur Methadone, Qual Urine Barbiturates Ur Phencyclidine (PCP) U Amphetamin/Meth Scrn MDMA (Ecstasy) Screen U Benzodiazepines Scrn Ur Cocaine Metabolite U Marijuana (THC) Screen Hep Bs Antigen Hepatitis C Antibody Influenza Type A (PCR) Influenza Type B (PCR) Blood Type Antibody Screen 07/09/18 07/09/18 07/09/18 06:03 06:04 06:04 WBC 20.65 H RBC 5.76 Hgb 18.1 H Hct 52.1 H MCV 90.5 MCH 31.4 MCHC 34.7 RDW Std Deviation 47.1 H RDW Coeff of [place]axa 14.2 Plt Count 196 MPV 10.4 Immature Gran % (Auto) 0.5 Neut % (Auto) 84.9 Lymph % (Auto) 10.8 [place] % (Auto) 3.8 Eos % (Auto) 0.0 Baso % (Auto) 0.0 Immature Gran # (Auto) 0.11 H Neut # (Auto) 17.50 H Lymph # (Auto) 2.24 [place] # (Auto) 0.79 H Eos # (Auto) 0.00 Baso # (Auto) 0.01 PT 11.9 INR 1.2 H APTT PTT Ratio Sample Site POC pH POC pCO2 POC pO2 POC HCO3 POC Total CO2 POC Base Excess POC ABG O2 Sat Eris Test O2 Delivery Device POC O2 Rate Minute Ventilation POC FiO2 Tidal Volume PEEP Sodium Potassium Chloride Carbon Dioxide Anion Gap BUN Creatinine Est Cr Clr Drug Dosing Est GFR ( Amer) Est GFR (Non-Af Amer) BUN/Creatinine Ratio Glucose POC Glucose 148 H POC Glucose (other) Estimat Average Glucose Hemoglobin A1c Lactate Calcium Phosphorus Magnesium Total Bilirubin Direct Bilirubin AST ALT Alkaline Phosphatase Total Creatine Kinase CK-MM (CK-3) CK-MB (CK-2) CK-BB (CK-1) Creatine Kinase Interp Troponin I Total Protein Albumin Free T4 Free T3 FSH Luteinizing Hormone Testosterone Level Specimen Hemolysis Urine Color Urine Appearance Urine pH Ur Specific [place] Urine Protein Urine Glucose (UA) Urine Ketones Urine Blood Urine Nitrite Urine Bilirubin Urine Urobilinogen Ur Leukocyte Esterase Urine WBC (Auto) Urine RBC (Auto) U Hyaline Cast (Auto) U Epithel Cells (Auto) Urine Bacteria (Auto) Granular Casts Nasal Screen MRSA (PCR) Urine Opiates Screen Ur Methadone, Qual Urine Barbiturates Ur Phencyclidine (PCP) U Amphetamin/Meth Scrn MDMA (Ecstasy) Screen U Benzodiazepines Scrn Ur Cocaine Metabolite U Marijuana (THC) Screen Hep Bs Antigen Hepatitis C Antibody Influenza Type A (PCR) Influenza Type B (PCR) Blood Type Antibody Screen 07/09/18 07/09/18 07/09/18 06:04 06:04 06:04 WBC RBC Hgb Hct MCV MCH MCHC RDW Std Deviation RDW Coeff of [place] Plt Count MPV Immature Gran % (Auto) Neut % (Auto) Lymph % (Auto) [place] % (Auto) Eos % (Auto) Baso % (Auto) Immature Gran # (Auto) Neut # (Auto) Lymph # (Auto) [place] # (Auto) Eos # (Auto) Baso # (Auto) PT INR APTT PTT Ratio Sample Site POC pH POC pCO2 POC pO2 POC HCO3 POC Total CO2 POC Base Excess POC ABG O2 Sat Eris Test O2 Delivery Device POC O2 Rate Minute Ventilation POC FiO2 Tidal Volume PEEP Sodium 138 Potassium 3.7 Chloride 106 Carbon Dioxide 23 Anion Gap 9.0 BUN 22 H Creatinine 1.60 H Est Cr Clr Drug Dosing 120.5 Est GFR ( Amer) 68.9 Est GFR (Non-Af Amer) 59.4 BUN/Creatinine Ratio 13.6 Glucose 152 H POC Glucose POC Glucose (other) Estimat Average Glucose 108 Hemoglobin A1c 5.4 Lactate 2.7 H* Calcium 6.7 L Phosphorus 2.7 Magnesium 1.8 Total Bilirubin 0.7 Direct Bilirubin 0.3 H AST 912 H ALT 362 H Alkaline Phosphatase 29 L Total Creatine Kinase CK-MM (CK-3) CK-MB (CK-2) CK-BB (CK-1) Creatine Kinase Interp Troponin I 49.200 H* Total Protein 6.2 L Albumin 2.6 L Free T4 Free T3 FSH Luteinizing Hormone Testosterone Level Specimen Hemolysis Urine Color Urine Appearance Urine pH Ur Specific [place] Urine Protein Urine Glucose (UA) Urine Ketones Urine Blood Urine Nitrite Urine Bilirubin Urine Urobilinogen Ur Leukocyte Esterase Urine WBC (Auto) Urine RBC (Auto) U Hyaline Cast (Auto) U Epithel Cells (Auto) Urine Bacteria (Auto) Granular Casts Nasal Screen MRSA (PCR) Urine Opiates Screen Ur Methadone, Qual Urine Barbiturates Ur Phencyclidine (PCP) U Amphetamin/Meth Scrn MDMA (Ecstasy) Screen U Benzodiazepines Scrn Ur Cocaine Metabolite U Marijuana (THC) Screen Hep Bs Antigen Hepatitis C Antibody Influenza Type A (PCR) Influenza Type B (PCR) Blood Type Antibody Screen 07/09/18 07/09/18 07/09/18 06:04 07:17 07:25 WBC RBC Hgb Hct MCV MCH MCHC RDW Std Deviation RDW Coeff of [place] Plt Count MPV Immature Gran % (Auto) Neut % (Auto) Lymph % (Auto) [place] % (Auto) Eos % (Auto) Baso % (Auto) Immature Gran # (Auto) Neut # (Auto) Lymph # (Auto) [place] # (Auto) Eos # (Auto) Baso # (Auto) PT INR APTT PTT Ratio Sample Site Art Line POC pH 7.35 POC pCO2 38 POC pO2 68 L POC HCO3 22 POC Total CO2 24 POC Base Excess -4.0 POC ABG O2 Sat 96.0 H Eris Test NA O2 Delivery Device Ventilator POC O2 Rate 26 Minute Ventilation POC FiO2 70 Tidal Volume PEEP 10 Sodium Potassium Chloride Carbon Dioxide Anion Gap BUN Creatinine Est Cr Clr Drug Dosing Est GFR ( Amer) Est GFR (Non-Af Amer) BUN/Creatinine Ratio Glucose POC Glucose POC Glucose (other) 139 H Estimat Average Glucose Hemoglobin A1c Lactate Calcium Phosphorus Magnesium Total Bilirubin Direct Bilirubin AST ALT Alkaline Phosphatase Total Creatine Kinase Cancelled CK-MM (CK-3) Cancelled CK-MB (CK-2) Cancelled CK-BB (CK-1) Cancelled Creatine Kinase Interp Cancelled Troponin I Total Protein Albumin Free T4 Free T3 FSH Luteinizing Hormone Testosterone Level Specimen Hemolysis Urine Color Urine Appearance Urine pH Ur Specific [place] Urine Protein Urine Glucose (UA) Urine Ketones Urine Blood Urine Nitrite Urine Bilirubin Urine Urobilinogen Ur Leukocyte Esterase Urine WBC (Auto) Urine RBC (Auto) U Hyaline Cast (Auto) U Epithel Cells (Auto) Urine Bacteria (Auto) Granular Casts Nasal Screen MRSA (PCR) Urine Opiates Screen Ur Methadone, Qual Urine Barbiturates Ur Phencyclidine (PCP) U Amphetamin/Meth Scrn MDMA (Ecstasy) Screen U Benzodiazepines Scrn Ur Cocaine Metabolite U Marijuana (THC) Screen Hep Bs Antigen Hepatitis C Antibody Influenza Type A (PCR) Influenza Type B (PCR) Blood Type Antibody Screen 07/09/18 07/09/18 07/09/18 09:49 09:49 09:49 WBC 15.83 H RBC 4.76 Hgb 14.7 D Hct 43.4 MCV 91.2 MCH 30.9 MCHC 33.9 RDW Std Deviation 47.2 H RDW Coeff of [place]ax[place] 14.2 Plt Count 173 MPV 10.1 Immature Gran % (Auto) 0.4 Neut % (Auto) 85.0 Lymph % (Auto) 10.3 [place] % (Auto) 4.2 Eos % (Auto) 0.0 Baso % (Auto) 0.1 Immature Gran # (Auto) 0.06 H Neut # (Auto) 13.46 H Lymph # (Auto) 1.63 [place] # (Auto) 0.67 H Eos # (Auto) 0.00 Baso # (Auto) 0.01 PT INR APTT PTT Ratio Sample Site POC pH POC pCO2 POC pO2 POC HCO3 POC Total CO2 POC Base Excess POC ABG O2 Sat Eris Test O2 Delivery Device POC O2 Rate Minute Ventilation POC FiO2 Tidal Volume PEEP Sodium 146 H D Potassium 2.4 L* D Chloride 120 H Carbon Dioxide 18 L Anion Gap 9.0 BUN 15 Creatinine 0.94 D Est Cr Clr Drug Dosing 205.1 Est GFR ( Amer) 131.0 Est GFR (Non-Af Amer) 113.0 BUN/Creatinine Ratio 15.5 Glucose 99 POC Glucose POC Glucose (other) Estimat Average Glucose Hemoglobin A1c Lactate Calcium < 5.0 L* D Phosphorus 1.9 L Magnesium 1.0 L Total Bilirubin Direct Bilirubin AST ALT Alkaline Phosphatase Total Creatine Kinase 00402 H CK-MM (CK-3) CK-MB (CK-2) CK-BB (CK-1) Creatine Kinase Interp Troponin I Total Protein Albumin Free T4 1.02 Free T3 2.16 L FSH Luteinizing Hormone Testosterone Level Specimen Hemolysis Urine Color Urine Appearance Urine pH Ur Specific [place] Urine Protein Urine Glucose (UA) Urine Ketones Urine Blood Urine Nitrite Urine Bilirubin Urine Urobilinogen Ur Leukocyte Esterase Urine WBC (Auto) Urine RBC (Auto) U Hyaline Cast (Auto) U Epithel Cells (Auto) Urine Bacteria (Auto) Granular Casts Nasal Screen MRSA (PCR) Urine Opiates Screen Ur Methadone, Qual Urine Barbiturates Ur Phencyclidine (PCP) U Amphetamin/Meth Scrn MDMA (Ecstasy) Screen U Benzodiazepines Scrn Ur Cocaine Metabolite U Marijuana (THC) Screen Hep Bs Antigen Hepatitis C Antibody Influenza Type A (PCR) Influenza Type B (PCR) Blood Type Antibody Screen 07/09/18 07/09/18 07/09/18 09:49 09:54 09:55 WBC RBC Hgb Hct MCV MCH MCHC RDW Std Deviation RDW Coeff of [place] Plt Count MPV Immature Gran % (Auto) Neut % (Auto) Lymph % (Auto) [place] % (Auto) Eos % (Auto) Baso % (Auto) Immature Gran # (Auto) Neut # (Auto) Lymph # (Auto) [place] # (Auto) Eos # (Auto) Baso # (Auto) PT INR APTT PTT Ratio Sample Site POC pH POC pCO2 POC pO2 POC HCO3 POC Total CO2 POC Base Excess POC ABG O2 Sat Eris Test O2 Delivery Device POC O2 Rate Minute Ventilation POC FiO2 Tidal Volume PEEP Sodium Potassium Chloride Carbon Dioxide Anion Gap BUN Creatinine Est Cr Clr Drug Dosing Est GFR ( Amer) Est GFR (Non-Af Amer) BUN/Creatinine Ratio Glucose POC Glucose POC Glucose (other) Estimat Average Glucose Hemoglobin A1c Lactate 1.7 Calcium Phosphorus Magnesium Total Bilirubin Direct Bilirubin AST ALT Alkaline Phosphatase Total Creatine Kinase CK-MM (CK-3) CK-MB (CK-2) CK-BB (CK-1) Creatine Kinase Interp Troponin I Total Protein Albumin Free T4 Free T3 FSH < 0.30 Luteinizing Hormone < 0.07 Testosterone Level 416.8 Specimen Hemolysis Urine Color Urine Appearance Urine pH Ur Specific [place] Urine Protein Urine Glucose (UA) Urine Ketones Urine Blood Urine Nitrite Urine Bilirubin Urine Urobilinogen Ur Leukocyte Esterase Urine WBC (Auto) Urine RBC (Auto) U Hyaline Cast (Auto) U Epithel Cells (Auto) Urine Bacteria (Auto) Granular Casts Nasal Screen MRSA (PCR) Urine Opiates Screen Ur Methadone, Qual Urine Barbiturates Ur Phencyclidine (PCP) U Amphetamin/Meth Scrn MDMA (Ecstasy) Screen U Benzodiazepines Scrn Ur Cocaine Metabolite U Marijuana (THC) Screen Hep Bs Antigen Neg Hepatitis C Antibody Neg Influenza Type A (PCR) Influenza Type B (PCR) Blood Type AB Positive Antibody Screen NEGATIVE 07/09/18 07/09/18 07/09/18 11:52 12:09 12:09 WBC 17.24 H RBC 5.40 Hgb 16.7 Hct 49.3 MCV 91.3 MCH 30.9 MCHC 33.9 RDW Std Deviation 47.6 H RDW Coeff of [place] 14.3 Plt Count 179 MPV 9.9 Immature Gran % (Auto) 0.4 Neut % (Auto) 83.8 Lymph % (Auto) 11.5 [place] % (Auto) 4.1 Eos % (Auto) 0.1 Baso % (Auto) 0.1 Immature Gran # (Auto) 0.07 H Neut # (Auto) 14.46 H Lymph # (Auto) 1.98 [place] # (Auto) 0.71 H Eos # (Auto) 0.01 Baso # (Auto) 0.01 PT INR APTT PTT Ratio Sample Site Art Line POC pH 7.36 POC pCO2 43 POC pO2 84 POC HCO3 25 H POC Total CO2 27 POC Base Excess -1.0 POC ABG O2 Sat 97.0 H Eris Test NA O2 Delivery Device Ventilator POC O2 Rate 14 Minute Ventilation 70 POC FiO2 Tidal Volume 600 PEEP 10 Sodium 139 Potassium 3.6 D Chloride 106 Carbon Dioxide 26 Anion Gap 7.0 BUN 19 H Creatinine 1.61 H D Est Cr Clr Drug Dosing 119.7 Est GFR ( Amer) 68.3 Est GFR (Non-Af Amer) 59.0 BUN/Creatinine Ratio 11.7 Glucose 146 H POC Glucose POC Glucose (other) Estimat Average Glucose Hemoglobin A1c Lactate Calcium 6.6 L D Phosphorus 2.8 Magnesium 2.4 Total Bilirubin Direct Bilirubin AST ALT Alkaline Phosphatase Total Creatine Kinase CK-MM (CK-3) CK-MB (CK-2) CK-BB (CK-1) Creatine Kinase Interp Troponin I Total Protein Albumin Free T4 Free T3 FSH Luteinizing Hormone Testosterone Level Specimen Hemolysis Urine Color Urine Appearance Urine pH Ur Specific [place] Urine Protein Urine Glucose (UA) Urine Ketones Urine Blood Urine Nitrite Urine Bilirubin Urine Urobilinogen Ur Leukocyte Esterase Urine WBC (Auto) Urine RBC (Auto) U Hyaline Cast (Auto) U Epithel Cells (Auto) Urine Bacteria (Auto) Granular Casts Nasal Screen MRSA (PCR) Urine Opiates Screen Ur Methadone, Qual Urine Barbiturates Ur Phencyclidine (PCP) U Amphetamin/Meth Scrn MDMA (Ecstasy) Screen U Benzodiazepines Scrn Ur Cocaine Metabolite U Marijuana (THC) Screen Hep Bs Antigen Hepatitis C Antibody Influenza Type A (PCR) Influenza Type B (PCR) Blood Type Antibody Screen 07/09/18 07/09/18 07/09/18 15:28 15:29 15:47 WBC 18.64 H RBC 5.52 Hgb 17.1 Hct 50.0 MCV 90.6 MCH 31.0 MCHC 34.2 RDW Std Deviation 46.7 H RDW Coeff of [place]ax[place] 14.1 Plt Count 189 MPV 10.0 Immature Gran % (Auto) 0.7 Neut % (Auto) 84.2 Lymph % (Auto) 8.8 [place] % (Auto) 6.1 Eos % (Auto) 0.1 Baso % (Auto) 0.1 Immature Gran # (Auto) 0.13 H Neut # (Auto) 15.71 H Lymph # (Auto) 1.64 [place] # (Auto) 1.14 H Eos # (Auto) 0.01 Baso # (Auto) 0.01 PT INR APTT PTT Ratio Sample Site Art Line POC pH 7.42 POC pCO2 38 POC pO2 46 L POC HCO3 26 H POC Total CO2 27 POC Base Excess 1.0 POC ABG O2 Sat 89.0 L Eris Test Pass O2 Delivery Device POC O2 Rate Minute Ventilation POC FiO2 Tidal Volume PEEP Sodium 142 Potassium Chloride 105 Carbon Dioxide 31 Anion Gap 6.0 BUN 18 Creatinine 1.55 H Est Cr Clr Drug Dosing 124.4 Est GFR ( Amer) 71.6 Est GFR (Non-Af Amer) 61.7 BUN/Creatinine Ratio 11.5 Glucose 105 H POC Glucose POC Glucose (other) Estimat Average Glucose Hemoglobin A1c Lactate Calcium 6.8 L Phosphorus 2.7 Magnesium Total Bilirubin Direct Bilirubin AST ALT Alkaline Phosphatase Total Creatine Kinase CK-MM (CK-3) CK-MB (CK-2) CK-BB (CK-1) Creatine Kinase Interp Troponin I Total Protein Albumin Free T4 Free T3 FSH Luteinizing Hormone Testosterone Level Specimen Hemolysis Urine Color Urine Appearance Urine pH Ur Specific [place] Urine Protein Urine Glucose (UA) Urine Ketones Urine Blood Urine Nitrite Urine Bilirubin Urine Urobilinogen Ur Leukocyte Esterase Urine WBC (Auto) Urine RBC (Auto) U Hyaline Cast (Auto) U Epithel Cells (Auto) Urine Bacteria (Auto) Granular Casts Nasal Screen MRSA (PCR) Urine Opiates Screen Ur Methadone, Qual Urine Barbiturates Ur Phencyclidine (PCP) U Amphetamin/Meth Scrn MDMA (Ecstasy) Screen U Benzodiazepines Scrn Ur Cocaine Metabolite U Marijuana (THC) Screen Hep Bs Antigen Hepatitis C Antibody Influenza Type A (PCR) Influenza Type B (PCR) Blood Type Antibody Screen 07/09/18 07/09/18 07/09/18 16:28 Unknown Unknown WBC RBC Hgb Hct MCV MCH MCHC RDW Std Deviation RDW Coeff of [place] Plt Count MPV Immature Gran % (Auto) Neut % (Auto) Lymph % (Auto) [place] % (Auto) Eos % (Auto) Baso % (Auto) Immature Gran # (Auto) Neut # (Auto) Lymph # (Auto) [place] # (Auto) Eos # (Auto) Baso # (Auto) PT INR APTT PTT Ratio Sample Site POC pH POC pCO2 POC pO2 POC HCO3 POC Total CO2 POC Base Excess POC ABG O2 Sat Eris Test O2 Delivery Device POC O2 Rate Minute Ventilation POC FiO2 Tidal Volume PEEP Sodium Potassium Cancelled Chloride Carbon Dioxide Anion Gap BUN Creatinine Est Cr Clr Drug Dosing Est GFR ( Amer) Est GFR (Non-Af Amer) BUN/Creatinine Ratio Glucose POC Glucose POC Glucose (other) Estimat Average Glucose Hemoglobin A1c Lactate Calcium Phosphorus Magnesium Cancelled Total Bilirubin Direct Bilirubin AST ALT Alkaline Phosphatase Total Creatine Kinase Cancelled CK-MM (CK-3) CK-MB (CK-2) CK-BB (CK-1) Creatine Kinase Interp Troponin I Total Protein Albumin Free T4 Free T3 FSH Luteinizing Hormone Testosterone Level Specimen Hemolysis Urine Color Yellow Urine Appearance Turbid H Urine pH 5.0 Ur Specific [place] 1.025 Urine Protein 1+ H Urine Glucose (UA) Negative Urine Ketones Negative Urine Blood 3+ H Urine Nitrite Negative Urine Bilirubin Negative Urine Urobilinogen Negative Ur Leukocyte Esterase 1+ H Urine WBC (Auto) 5-10 H Urine RBC (Auto) >30 H U Hyaline Cast (Auto) 5-10 H U Epithel Cells (Auto) >30 H Urine Bacteria (Auto) Negative Granular Casts 1-5 H Nasal Screen MRSA (PCR) Urine Opiates Screen Neg Ur Methadone, Qual Neg Urine Barbiturates Neg Ur Phencyclidine (PCP) Neg U Amphetamin/Meth Scrn Neg MDMA (Ecstasy) Screen Neg U Benzodiazepines Scrn Neg Ur Cocaine Metabolite Neg U Marijuana (THC) Screen Pos H Hep Bs Antigen Hepatitis C Antibody Influenza Type A (PCR) Influenza Type B (PCR) Blood Type Antibody Screen (1) Acute kidney failure Acute renal failure type: unspecified Qualified Code(s): N17.9 - Acute kidney failure, unspecified
[2018-07-09] MEDS ORDERED: VECURONIUM BROMIDE 10 MG VIAL ONE ×2 (17:38→20:46)
[2018-07-09] MEDS ORDERED: MIDAZOLAM HCL 5 MG/ML 1 ML VIAL ONE (17:38)
[2018-07-09] MEDS ORDERED: BusPIRone 15 MG TAB NG SCH (17:45)
[2018-07-09] MEDS ORDERED: OPTIRAY 320 125ml IV PRN (18:00)
--- NOTE | 2018-07-09 18:11 | CT Scan Report ---
CT angio neck with con HISTORY: Mental status change Neuro Change in exam TECHNIQUE: Multiaxial CT angiography of the neck was performed IV contrast: 50 cc All measurem ents were calculated based on NASCET criteria. Maximum intensity projection images were also obtaine d. A dose lowering technique was utilized adhering to the principles of ALARA. COMPARISON STUDY: None. FINDINGS: The aortic arch and proximal great vessels are widely patent. There is no significant sten osis, occlusion, or dissection identified within the bilateral common carotid, internal carotid, or v ertebral arteries. IMPRESSION: No significant stenosis, occlusion, or dissection identified within the carotid or vertebral arteries . The above report was generated using voice recognition software. It may contain grammatical, syntax or spelling errors. Electronically signed by: Joel Santa M.D. 07/09/2018 6:09 PM
--- NOTE | 2018-07-09 18:22 | CT Scan Report ---
CT angio head wo/w HISTORY: Change in neuro exam TECHNIQUE: Multiaxial CT angiography of the head was performed IV contrast: 50 cc Maximum in tensity projection images were also obtained. A dose lowering technique was utilized adhering to the principles of ALARA. COMPARISON: CT 07/08/2017 FINDINGS: Findings again consistent with infarcts of the left posterior parietal lobe mild effacement of the cerebral sulci bilaterally. Small infarct right superior cerebellum. Mild midline shift to th e right of 3 mm. No evidence for acute intracranial hemorrhage. As well as left basal ganglia. Evaluation of the intracranial vasculature is compromised due to patient motion. No major stenotic pr ocess is appreciated. Small vessel detail is obscured. IMPRESSION: 1. 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 2. Small right superior cerebellar infarct. 3. Generalized intracranial edematous change with mild midline shift to the right. 4. No evidence for acute intracranial hemorrhage. 5. The intracranial vasculature is poorly evaluated due to patient motion although there is no major vascular occlusion or dissection. The above report was generated using voice recognition software. It may contain grammatical, syntax or spelling errors. Electronically signed by: Joel Santa M.D. 07/09/2018 6:21 PM
[2018-07-09] MEDS ORDERED: MANNITOL 25% 12.5 GM/50 ML VIAL IV STA (18:36)
[2018-07-09 18:54] LABS: iSTAT Arterial Blood Gas HCO3 31 meg/L (19-24); iSTAT Arterial Blood Gas pCO2 69 mmHg (35-46); iSTAT Arterial Blood Gas pH 7.26 (7.35-7.45); iSTAT Carbon Dioxide 34 mEq/l (24-31); iSTAT Site Art Line
[2018-07-09] MEDS ORDERED: MANNITOL 20% 250 ML IV SCH (19:00)
[2018-07-09 20:01] LABS: Hematocrit (blood only) 50.2 % (42-52); Hemoglobin 17.4 g/dL (14.0-18.0); Mean Corpuscular Hgb Conc 34.7 g/dL (32-36); Mean Corpuscular Volume 90.6 fL (80-100); Platelet Count 198 K/uL (130-400); RDW Coefficient of Variation 14.2 % (11.5-14.5); RDW Standard Deviation 46.8 fL (36.4-46.3); Red Blood Count 5.54 M/uL (4.7-6.1); White Blood Count 22.43 K/uL (4.8-10.8)
--- NOTE | 2018-07-09 20:13 | Discharge Summary ---
Date of Service July 09, 2018 Admission HPI Per Admitting Provider In short, patient is an unfortunate 23-year-old male with no prior significant past medical history who presented to our facility on the afternoon of 07/08 as directed transport from [facility]. The patient was found on 07/08 at 0 930 by his girlfriend in bed. He was cyanotic at the lips with frothy sputum appreciated. EMS was contacted. Patient maintained a pulse of majority of the time in route, however he did lose his pulse just prior to arrival at [facility] emergency department. Patient underwent approximately 25 minutes of CPR in the setting of cardiac arrest and question of possible PEA arrest as well. Eventually, pulses returned. Patient was reportedly intubated after the event. He was transferred by air to our ICU for continued evaluation and management. Upon arrival to our ICU, RIGHT triple-lumen IJ was placed as well as RIGHT femoral Thermo guard cooling catheter. He underwent CT of the head as well as chest. CT the head was concerning for multiple areas of infarct with white matter changes. Additionally, patient was found to have bilateral lower lobe pneumonia presumed to be aspiration. Patient was started on vancomycin and Zosyn. Zosyn was subsequently changed to cefepime today. Patient underwent therapeutic bronchoscopy without significant findings other than aspiration. Therapeutic hypothermia was initiated with a goal temperature of 34 C. Patient reached core temperature at 0100 on 07/08. Patient was sedated with fentanyl and Versed. He was paralyzed with Nimbex for a short period throughout the night. At this was tapered off on the morning of 07/09. Electrolytes were replaced throughout hypothermia protocol per typical. Patient did require amiodarone bolus and drip with multiple runs of V. tach early in the evening. Amiodarone persist at this point. This afternoon, the patient apparently developed tachypnea, hypertension, tachycardia. Patient received vecuronium and was sent to CT for further evaluation. CT concerning for worsening cerebral edema with concerns for midline shift. An EEG was performed which showed severe encephalopathy. At this point, patient is in an active worsening state of extremitas concerning for end-stage process with impending herniation. Patient received loading dose of 50 mg IV mannitol and was started on 3% hypertonic saline at 60 mL's per hour. He had been started on hyperventilation as well. Patient has been oxygenating poorly over the last few hours. Ventilation adjustments have been made including increasing pressure support as well as increasing oxygenation and rate. I personally spoke with attending digital photo printer, Dr. Oh, at [facility]. He does accept patient in transfer. I have personally spent 30 minutes of critical care time in the direct management of this patient. This is a life/limb threatening event. This includes time spent evaluating patient, direct bedside care, chart review, placing orders, interpretation of diagnostic studies, discussion with consultants, patient, and family members, as well as other required patient management activities. This time is exclusive of all separately billable procedures, and teaching time and separate from and in addition to any other critical care service time. Discharge Data Consultations 07/08/18 15:34 Consult Case Management - Discharge Planning Routine Consult Observation Nurse Routine 07/08/18 17:34 Consult Cardiology Routine 07/09/18 07:19 Consult Neurology Stat 07/09/18 13:58 Consult Nephrology Routine 07/09/18 19:27 Burn CD for patient Stat Supervising Physician Co-Signing Physician Notes I was advised of the patient's disposition via telephone. I agree with the assessment treatment and plan of Janette Coe
[2018-07-09] MEDS ORDERED: SODIUM CHLORIDE 3 % 500 ML IV SCH (20:15)
[2018-07-09] MEDS ORDERED: MIDAZOLAM HCL 1 MG/ML 2ML VIAL ONE (20:19)
[2018-07-09 20:37] LABS: iSTAT Allen Test Pass; iSTAT Arterial Blood Gas HCO3 29 meg/L (19-24); iSTAT Arterial Blood Gas pCO2 57 mmHg (35-46); iSTAT Carbon Dioxide 30 mEq/l (24-31); iSTAT Site Art Line
[2018-07-09 20:57] LABS: Magnesium 1.6 mg/dl (1.8-2.4); Potassium 3.6 mmol/L (3.5-5.1)
[2018-07-09 20:58] LABS: BUN Creatinine Ratio 11.6 (10-20); Calcium 6.4 mg/dl (8.5-10.1); Creatinine Clr Calc Pharmacy 137.7 ml/min; Est GFR (African American) 80.9; Est GFR (Non-African American) 69.8
[2018-07-09 21:04] LABS: Phosphorus 3.3 mg/dl (2.5-4.9)
[2018-07-09 21:28] LABS: Basophils # (auto) 0.01 K/uL (0-0.2); Eosinophils # (auto) 0.01 K/uL (0-0.5); Immature Granulocytes % (auto) 0.4 %; Lymphocytes # (auto) 1.15 K/uL (1.2-3.4); Lymphocytes % (auto) 5.1 %; Monocytes # (auto) 0.84 K/uL (0.11-0.59); Monocytes % (auto) 3.7 %; Neutrophils # (auto) 20.32 K/uL (1.4-6.5); Neutrophils % (auto) 90.8 %; RBC Morphology Unremarkable
[2018-07-10] MEDS ORDERED: THIAMINE HCL 100 MG TAB PO SCH (09:00)
--- NOTE | 2018-07-10 10:09 | Procedure Note ---
Procedure Note Date of Service July 09, 2018 Critical Care Medicine Point of Care Bedside Ultrasound Procedure: Limited Bedside Renal Ultrasound Procedure Date: July 09, 2018 Indication: Anuria, acute kidney injury Attending: Fer Corley DO Resident/Physician Systems Librarian: Wilder FARMER Organs Examined: kidneys, ureter, bladder. Right Kidney Kidney present: Yes Both Poles visualized: Yes Hydronephrosis: No Hepatorenal space fluid visualized: No Concern for Mass/Cyst: No Left Kidney Kidney present: Yes Both Poles visualized: Yes Hydronephrosis: No Splenorenal space fluid visualized: No Concern for Mass/Cyst: No Bladder Urano present: Yes Fluid in Bladder present: Yes Fluid in rectovesicle recesss: No Concern for Mass: No Ureteral Jets: No Impression: Concern for malfunctioning Ruano, will replace Ruano catheter given bladder findings, no evidence of hydronephrosis to suggest suggest obstruction at this time. Images obtained are saved for permanent record
--- NOTE | 2018-07-10 17:30 | Discharge Summary ---
Date of Service July 10, 2018 Admission HPI Per Admitting Provider 23yo male with history of possible polysubstance abuse by history and morbid obesity who presented to [facility] via EMS with asystolic cardiac arrest. Per records and via verbal communication with the sending physician at [facility] the patient's girlfriend found him unresponsive and not breathing at home. EMS was summoned, and according to documentation, they found him WITH a pulse at his home. However, by the time of hospital arrival at [facility], he was in asystolic arrest. CPR was initiated at 924am according to records. Narcan and epinephrine were given followed by NaBicarbonate. At 0937am narcan was given again, and the monitor showed PEA. He was also given flumazanil to cover for the possibility of benzodiazepine overdose. Additional fluids and epinephrine were given for ongoing PEA on the monitor. At 942am a pulse was finally obtained and CPR was stopped. It appears he was intubated about 0948am. He received, in total, 4 liters of NS and 2 grams of rocephin IV due to WBC count of 40,000 on cbc. Initial EKG - inferior ST depressions; repeat EKG with improved ST changes inferiorly Labs at [facility]: WBC 41,000 Hb 18 Platelets 322 Creatinine 3 AG 20 AST 256 ALT 210 Troponin 8 Lipase 1439 CRP 0 initial pH 7.04, pCO3 63 u/a with LE, mod bacteria, 3+ blood, 2+ protein tox screen + THC lactic acid 6 After the patient's family arrived at [facility] additional history was obtained. Additional history was given by his mother, father, and his girlfriend with whom he lives. Patient's girlfriend stated that for at least 2 days if not 3 days he was complaining of feeling quite tired and simply not feeling well. Girlfriend states that the patient told her that several people at his workplace were sick with the flu. There was no known fever or chills over the last few days. His girlfriend and his parents had not noticed any cough or congestion. The patient was last seen awake and alert at approximately 11:30 PM last evening. His parents mention that when they saw him sometime yesterday he looked pale and simply unwell. The mother mentioned a remote possibility of him taking 1 of her [place] yesterday but she could not verify this. Lastly the girlfriend states that when she went into check on him at approximately 9 AM today he found him cyanotic in the lips and completely unresponsive to his name being called. She does think that he was still breathing when she first discovered him unresponsive. His breathing though was irregular. Patient's parents and his girlfriend also state that he snores each evening, it is very loud, and has been quite severe for some time. He has never had a sleep study. Lastly, the only other complaint that the patient has had of late is chronic right knee pain. The knee had not been swollen or red according to his gir lfriend. Admission Exam Per Admitting Provider General: Intubated, paralyzed, sedated; morbidly obese Skin: Numerous tattoos, no signs of trauma, hyperpigmentation of the groin, erythema of the right lower abdominal wall but not warm or typical of cellulitis, ecchymoses of the plantar aspect of the right foot Eyes: Pupils are 2-3 mm bilateral; they were not reactive HEENT: ET tube and enteric tube are present; there are wkcssy-jrmtsk-wpek materials in the enteric tube Neck: No obvious masses or lymphadenopathy; due to body habitus unable to assess for JVD Heart: Regular rate rhythm S1-S2 no murmurs rubs or gallop Lungs: Decreased breath sounds both bases; the anterior chest is clear to auscultation bilaterally; no wheezes or rales Abdomen: Soft, obese, no hepatosplenomegaly, no masses, nondistended Extremities: Cool to touch, pulses 1+ bilaterally, no edema Neuro: Due to paralytics he is areflexic; no spontaneous movement seen presumably due to paralytics; no facial droop Vascular: There is a right sided subclavian central line in place; there is a right femoral central line in place; pulses of both feet are 1+ bilaterally; there is some mottling of the lower extremities Psych: Patient is intubated and sedated Principal Diagnosis Cardiac Arrest, Stroke, Cerebral Edema, ARF Discharge Exam Constitutional: + morbidly obese and + mechanically ventilated Respiratory: Auscultation: + diminished lung sounds coarse breath sounds over right lung Cardiovascular: RRR, no murmur, no edema Vessels: radial pulses present Gastrointestinal (Abdomen): Percussion/Palpation: abdomen soft; abdomen nontender Discharge Data Allergies Allergy/AdvReac Type Severity Reaction Status Date / Time Unable to Assess Allergy Verified 07/08/18 16:41 Consultations 07/08/18 15:34 Consult Case Management - Discharge Planning Routine Consult Plastic Press Operator Routine 07/08/18 17:34 Consult Cardiology Routine 07/09/18 07:19 Consult Neurology Stat 07/09/18 13:58 Consult Nephrology Routine 07/09/18 19:27 Burn CD for patient Stat Ordered Studies 07/08/18 17:25 CT head/brain wo con Stat 07/08/18 17:35 CT chest wo con Urgent 07/09/18 15:51 US point of care ultrasound Routine 07/09/18 17:26 CT angio head wo/w Stat CT angio neck with con Stat Hospital Course (1) Stroke: Mr. Gamez is a 23 year old male with a history of anabolic steroid abuse who was transferred from [facility] after achieving ROSC after a cardiac arrest requiring ~25 minutes of resuscitation. He was admitted to the ICU, intubated and mechanically ventilated. -s/p cardiac arrest w/ROSC -pt subsequently had episodes of vtach -> amiodarone drip started -therapeutic hypothermia initiated for 24h -cardiology consulted -> unlikely to be secondary to STEMI, likely inciting event is hypoxia - hypoxia caused by: - right sided pneumonia and possibly PE (pt has family hx of DVT) - heparin drip initiated and patient was started on IV cefepime. Bcx were drawn and bronchoscopy was completed on 07/09 - pt unfortunately suffered several sequelae of his cardiac arrest including -> cerebral edema and multiple infarcts in left parietal lobe and basal ambika glia -> likely secondary to decreased cerebral perfusion. Could have possibly also been secondary to venous sinus thrombosis given hx of hypercoagulable disorder in family & anabolic steroid use -> LFTs elevated - AST 912 and ALT 362, likely secondary to ischemic hepatitis, but viral panel was ordered -> CHELSEY - BUN 22 and creatinine 1.6 -> rhabdo - elevated CK to 41k - unfortunately, over the course of 07/09, pt developed tachypnea, hypertension, tachycardia. - he underwent a repeat head CT which showed worsening cerebral edema with concerns for midline shift. EEG showed severe encephalopathy. - concerning for impending herniation. Patient received loading dose of 50 mg IV mannitol and was started on 3% hypertonic saline at 60 mLs per hour. - decision was made to transfer him to [facility] for escalation in care (2) Anoxic encephalopathy: (3) Elevated lipase: (4) Bilateral pneumonia: (5) Acute respiratory failure with hypoxia and hypercarbia: (6) Sepsis: (7) Polycythemia: (8) Shock liver: (9) Tobacco use: (10) Morbid obesity with BMI of 45.0-49.9, adult: (11) Hyperkalemia: (12) Acute kidney failure: (13) NSTEMI (non-ST elevated myocardial infarction): (14) Cardiac arrest: Total Time Total Time Spent Total Time Spent (In Minutes): 30 Discharge Plan Discharge Items Patient Disposition: Transfer Acute Care Hospital Reason For Visit: CARDIAC ARREST Follow-up/Referrals: PCP,PB [Primary Care Provider] - Addtl Provider Instructions: N/A Stand-Alone Forms: [facility] Admission Data Admit Date/Time: 07/08/18 15:01 Attending Provider: Todd Cobb Admit Provider: Benton Hughes Primary Care Provider: SANTY,PB Other Providers: Nakia Kohli ; Todd Crouch ; Benjy Westfall ; Tutu Santizo Service: Intensive Care Unit Other Interventions: Discharge Summary Assessment (RN) Last Done: 07/09/18 21:45 DC Date/Time DO NOT enter until pt leaves facility: 07/09/18 21:30
[2018-07-11 12:26] LABS: HIV 1 RNA PCR Copies/ML <20 NOT DETECTED COPIES/mL (<20); HIV-1 RNA Log Copies/mL <1.30 NOT DETECTED (<1.30)
[2018-07-13 23:06] LABS: Anti Cardiolipin Ab IgG <14 GPL (< = 14); Anti Cardiolipin Ab IgM <12 MPL (< = 12); B2 Glycoprotein IgA <9 SAU (<=20); B2 Glycoprotein IgG <9 SGU (<=20); B2 Glycoprotein IgM <9 SMU (<=20); Lupus Anticoagulant Negative (Negative); Protein S Functional(Activity) 57 % (70-150)
[2018-07-23 11:13] LABS: Testosterone Total 489 ng/dL (250-1100)
== END 2018-07-09 21:30 | disposition short-term general hospital (02) | DRG 280 ==
LOC: SUATTDRO 15:01 → 1E 15:01